=== PATIENT | female | born 1940 | race Caucasian/White ===

== ENCOUNTER 2021-03-27 05:51 | Observation (INO) | payer MEDICARE, SELFPAY ==
[2021-03-27] VITALS (21 sets, daily range): BP systolic 130–220; BP diastolic 44–90; PULSE 65–98; RESP 14–18; TEMP 36.7–37.1; O2SAT 95–100; BMI 23.8
--- NOTE | ~2021-03-27 | XR_ITS ---
EXAMINATION: XR chest 1V DATE: 03/27/2021 06:59 INDICATION: Syncope TECHNIQUE: frontal view of the chest was obtained. COMPARISON: Chest radiograph dated 07/14/2013 FINDINGS: The lungs remain clear with no focal airspace opacities, pulmonary edema, pleural effusion or pneumot horax. The cardiomediastinal silhouette is normal. Mild to moderate thoracic spondylosis. IMPRESSION: 1. No acute cardiopulmonary disease. Reviewed, dictated and finalized at location A. NING ROOM ATTENDANT
--- NOTE | ~2021-03-27 | CT_ITS ---
EXAMINATION: CT brain wo con DATE: 03/27/2021 06:48 INDICATION: Fall with syncope TECHNIQUE: Computed tomography (CT) of the head was performed without intravenous contrast. Sagittal and coronal reconstructions were performed. The mA was adjusted according to patient size. Iterative reconstruction technique was employed. The dose-length product was 605.33 mGy-cm. COMPARISON: head CT dated 07/14/2013 FINDINGS: No fracture. No acute intracranial hemorrhage, acute infarction or abnormal extra axial fluid collect ion. Small old lacunar infarct at the left thalamus. There is mild scattered white matter hypoattenua tion consistent with chronic small vessel ischemic disease. Increased prominence of the sulci and sub arachnoid spaces overlying the convexities most prominent of the bilateral frontal lobes and right pa rietal lobe consistent with moderate age-appropriate diffuse cerebral volume loss. Ventricles are nor mal and symmetric. No mass/mass effect. Changes of right intraocular lens replacement. The orbits, pa ranasal sinuses and mastoid air cells are normal. Intracranial calcified cerebral atherosclerosis is noted. IMPRESSION: 1. No acute intracranial process. 2. Small old lacunar infarct at the left thalamus. 3. Age-related changes including moderate bilateral frontal and right parietal prominent cerebral vol ume loss and mild scattered white matter hypoattenuation consistent with chronic small vessel ischemi c disease. Reviewed, dictated and finalized at location A. E EXERCISER IMPRESSION: 1. No acute intracranial process. 2. Small old lacunar infarct at the left thalamus. 3. Age-related changes including moderate bilateral frontal and right parietal prominent cerebral volume loss and mild scattered white matter hypoattenuation consistent with chronic small vessel ischemic disease.
--- NOTE | ~2021-03-27 | US_ITS ---
EXAMINATION: US carotid duplex BI DATE: 03/27/2021 15:20 INDICATION: Syncope TECHNIQUE: Grayscale, color Doppler, and pulsed Doppler images of the cervical carotid arteries were obtained. The degree of vessel stenosis is placed in one of the following categories: normal, <50%, 5 0-69%, >=70% but less than near-occlusion, near-occlusion, or total occlusion. Note that percent sten osis relative to normal distal artery lumen diameter is indirectly measured from velocity measurement s as described by Tuan, et al. Radiology 2003; 229:340-346. COMPARISON: July 15, 2013 carotid duplex examination FINDINGS: RIGHT: The right common carotid artery (CCA) peak systolic velocity (PSV) is 88.6 cm/s. The right internal c arotid artery (ICA) PSV is 99.0 cm/s. The right ICA end-diastolic velocity (EDV) is 23.3 cm/s. The ri t ICA/CCA PSV ratio is 1.1. Grayscale and color Doppler images yield an estimate of less than 50% d iameter reduction from plaque in the ICA. The external carotid artery (ECA) PSV is 72.9 cm/s. There i s antegrade flow in the right vertebral artery. LEFT: The left CCA PSV is 102.9 cm/s. The left ICA PSV is 133.9 cm/s. The left ICA EDV is 27.3 cm/s. The [facility] ICA/CCA PSV ratio is 1.3. Grayscale and color Doppler images yield an estimate of less than 50% di ameter reduction from plaque in the ICA. The ECA PSV is 84.6 cm/s. There is antegrade flow in the lef t vertebral artery. IMPRESSION: 1. Less than 50% stenosis in the right internal carotid artery. 2. Less than 50% stenosis in the left internal carotid artery. Reviewed, dictated and finalized at Location A. Reviewed, dictated and finalized at location A. NICS SYSTEMS ENGINEER
--- NOTE | 2021-03-27 05:58 | ECG_ITS ---
Measurements Intervals [place] Rate: 71 P: 11 OK: 131 QRS: 31 QRSD: 77 T: 26 QT: 350 QTc: 381 Interpretive Statements SINUS RHYTHM MINIMAL Q WAVES- INFERIOR LEADS BORDERLINE ECG Electronically Signed On 03-27-2021 7:08:50 [place] by Fareed Christian D.O.
[2021-03-27 06:19] LABS: Basophils Percent Auto 0.4 % (0.2-1.2); Eosinophils Absolute Auto 0.1 K/mm3 (0-0.3); Eosinophils Percent Auto 1.8 % (0-4.4); Hematocrit 43.9 % (37.0-47.0); Immature Granulocyte Absolute 0.02 K/mm3 (0.00-0.031); Immature Granulocyte Percent A 0.4 % (0-0.5); Lymphocytes Absolute Auto 2.02 K/mm3 (0.9-3.2); Lymphocytes Percent Auto 35.9 % (18.3-44.2); Mean Corpuscular HGB Conc 34.2 g/dl (32-36); Mean Corpuscular Hemoglobin 29.8 pg (26-34); Mean Corpuscular Volume 87.1 fl (80-100); Mean Platelet Volume 10.7 fl (7.4-10.4); Monocytes Absolute Auto 0.7 K/mm3 (0.1-0.6); Monocytes Percent Auto 12.1 % (2.6-8.5); Neutrophils Absolute Auto 2.8 K/mm3 (1.3-6.7); Neutrophils Percent Auto 49.4 % (45.5-73.1); Platelet Count Result 192 k/mm3 (150-375); Red Blood Count 5.04 M/mm3 (4.2-5.4); Red Cell Distribution Width 12.7 % (11.5-14.5); White Blood Count 5.6 K/mm3 (4.5-10.0)
[2021-03-27 06:27] LABS: INR 1.1; Prothrombin Time 13.8 Seconds (11.1-14.7)
[2021-03-27 06:28] LABS: Partial Thromboplastin Time 26.6 SECONDS (22.3-36.8)
[2021-03-27 06:57] LABS: Alanine Aminotransferase 21 U/L (4-35); Albumin Level 3.7 g/dL (3.5-5.1); Alkaline Phosphatase 71 U/L (38-126); Anion Gap 7 mmol/L (8-16); Aspartate Amino Transferase 36 U/L (14-36); Bilirubin,Total 0.2 mg/dL (0.2-1.3); Blood Urea Nitrogen 12 mg/dL (7-17); Calcium 8.6 mg/dL (8.4-10.2); Carbon Dioxide 23 mmol/L (22-30); Chloride 102 mmol/L (98-107); Estimated CRCL calculation 32 ml/min; Estimated Glomerular Filt Rate 53; Glucose 100 mg/dL (65-110); Potassium 4.2 mmol/L (3.4-5.0); Sodium 132 mmol/L (137-145)
[2021-03-27 07:08] LABS: Troponin I 0.016 ng/mL (0.000-0.034)
[2021-03-27 07:33] LABS: Add Urine Microscopic? YES; Appearance Urine Cloudy (Clear); Bacteria Urine Trace /hpf; Bilirubin Urine Negative (Negative); Blood Urine Negative (Negative); Color Urine Yellow (Yellow); Glucose Urine UA Negative (Negative); Ketones Urine Negative (Negative); Leukocyte Esterase Ur 3+ LEU/UL (Negative); Mucus Urine Rare /lpf; Nitrate Urine Negative (Negative); Protein Urine Negative (Negative); Specific Grav Ur 1.011 (1.001-1.035); Squamous Epithelial Cell Urine Moderate /hpf (Few); Urobilinogen Urine Negative mg/dL (<2.0); WBC Urine 16-20 /hpf
[2021-03-27 07:34] LABS: Transitional Epi Cells Urine Rare /hpf (None Seen)
--- NOTE | 2021-03-27 07:45 | ED.SYNCOPE ---
HPI - Syncope General Chief Complaint: Syncope Stated Complaint: syncope Time Seen by Provider: 03/27/21 06:18 Source: patient History of Present Illness HPI narrative: 80-year-old with a history of hypertension, hypothyroidism, dementia was brought in from home with complaints of syncopal episode. As per the EMS and as per the daughter who is presently at home give us a history that mom passed out couple times in the last week or so. Patient presently denies having any chest pain, shortness of breath, nausea or vomiting or diarrhea. She states that she was trying to make some coffee and passed out. She denied any head injury. As per the daughter couple of family members in the household have Covid. complaint: almost passed out Onset (ago): day(s) (1) Prodromal symptoms: none Witnessed: Yes - by Other (family) Context: during exertion Injuries sustained associated with event: none Current symptoms: none Treatments prior to arrival: none Related Data Allergies Allergy/AdvReac Type Severity Reaction Status Date / Time No Known Allergies Allergy Verified 12/06/20 10:27 Review of Systems Review of Systems: All systems reviewed & are unremarkable except as noted in HPI and below Constitutional: Constitutional: Reports no additional constitutional complaints Eyes: Eyes: Reports no additional eye complaints ENT: Reports system reviewed and no additional complaints, except as documented Cardiovascular: Cardiovascular: Reports no additional cardiovascular complaints Respiratory: Respiratory: Reports no additional respiratory complaints Gastrointestinal: Gastrointestinal: Reports no additional gastrointestinal complaints Genitourinary: Genitourinary: Reports no additional female genitourinary complaints PMFSH Past Medical History Medical History Essential (primary) hypertension Hx of thyroid cancer Hypothyroidism Mixed hyperlipidemia Surgical History Surgical History History of thyroid surgery Family History Family History Father Family history of lung cancer Mother Family history of coronary artery disease Sibling Family history of coronary artery disease Family history of malignant neoplasm of breast in first degree relative Social History Social History Smoking status: Never smoker Second hand tobacco smoke exposure: No Alcohol intake: never Substance use: never Substance use type: does not use Gender identity (if verbalized by the patient): Female Spiritual care concerns: No Agree to blood products: Yes Course Course Emergency Course: Did orthostatic blood pressure she was definitely orthostatic have given a liter and half fluids she still remains orthostatic. She has no respiratory complaints. Will admit her to the hospital for hydration and reevaluate her orthostatics. Discussed with hospitalist agreed to admit the patient and the family members have Covid we will do a Covid screen on her as well. Vital Signs Vital signs: Vital Signs Temperature 36.9 C 03/27/21 06:01 Pulse Rate 72 03/27/21 06:01 Respiratory Rate 17 03/27/21 06:01 Blood Pressure 172/59 H 03/27/21 06:01 Pulse Oximetry 98 03/27/21 06:01 Temperature 36.9 C 03/27/21 06:01 Pulse Rate 98 03/27/21 10:52 Respiratory Rate 18 03/27/21 10:00 Blood Pressure 149/76 H 03/27/21 10:52 Pulse Oximetry 99 03/27/21 10:00 MDM - Syncope Differential Diagnosis Differential diagnosis: Likely syncope due to orthostatic hypotension, vasovagal syncope and dehydration Lab Data Result diagrams: 03/27/21 06:09 03/27/21 06:41 Labs: Lab Results 03/27/21 03/27/21 03/27/21 Range/Units 06:09 06:09 06:09 WBC 5.6 (4.5-10.0) K/mm3 RBC 5.04 (4.2-5.
[2021-03-27] MEDS: SODIUM CHLORIDE 0.9% IV 1,000 ML 999 ML IV CONT (08:56)
[2021-03-27] MEDS: SODIUM CHLORIDE 0.9% IV 1,000 ML 125 ML IV CONT ×2 (13:11→22:08)
--- NOTE | 2021-03-27 13:54 | PM.IMHP ---
H&P: HPI History of Present Illness Date/Time: 03/27/21 13:54 this is a 80-year-old female patient who Has been staying with her daughter. She has a history of hypertension, hypothyroidism, paroxysmal atrial fibrillation, and dementia. She was brought in from home with complaints of syncopal episode. According to the daughter the patient had passed out a couple times this last week. ( After reviewing the chart it looks like in 2013 the patient was having orthostatic hypotension and was found to have paroxysmal atrial fibrillation and had been passing out at that time.) The patient denies any chest pain or dizziness. No nausea vomiting or diarrhea. No chest pain or shortness of breath. The patient was trying to make coffee this morning and passed out. She denied any head injury. Some of the family members were also noted to have COVID therefore the patient is being tested for COVID-19. The patient is a poor historian but she is able to recall some of the information. Her EKG was read as sinus rhythm normal Q-waves. Head CT was read as no acute intracranial process. Small old lacunar infarct at the left thalamus. Age-related changes including moderate bilateral frontal and right parietal prominent cerebral volume loss and mild scattered white matter hypoattenuation consistent with chronic small vessel ischemic disease. Chest x-ray was read as no acute cardiopulmonary disease. Sodium was slightly low at 132. Urine had 3+ leukocyte Estrace with 16-20 wbc's and moderate amount of squamous epithelial cells. This could possibly be a contaminant. The patient's last blood pressure 178/73. The patient was started on IV fluids. The patient is being admitted to observation status. On the date of service of 03/27/2021 Chief Complaint: Syncopal episode Review of Systems Review of Systems: All systems reviewed & are unremarkable except as noted in HPI and below Constitutional: Constitutional: Reports as per HPI and Reports no additional constitutional complaints Eyes: Eyes: Reports as per HPI and Reports no additional eye complaints ENT: Reports system reviewed and no additional complaints, except as documented and Reports Normal hearing present Cardiovascular: Cardiovascular: Reports no additional cardiovascular complaints Respiratory: Respiratory: Reports no additional respiratory complaints and Reports no additional respiratory complaints Gastrointestinal: Gastrointestinal: Reports as per HPI and Reports no additional gastrointestinal complaints Musculoskeletal: Musculoskeletal: Reports no additional musculoskeletal complaints Integumentary/Breasts: Skin/Breast: Reports system reviewed and no additional complaints, except as docu and Reports as per HPI Neurologic: Reports system reviewed and no additional complaints, except as documented, Reports as per HPI and Reports Normal hearing present Psychiatric: Psychiatric: Reports no additional psychiatric complaints and Reports as per HPI Endocrine: Endocrine: Reports no additional endocrine complaints Hematologic/Lymphatic: Hematologic/Lymphatic: Reports no additional hematologic/lymphatic complaints Allergic/Immunologic: Allergic/Immunologic: Reports no additional allergic/immunologic complaints [facility] Past Medical History Medical History (Updated 03/27/21 @ 14:18 by Pat De Paz NP) Essential (primary) hypertension History of back injury History of CVA (cerebrovascular accident) History of foot fracture History of kidney stones History of wrist fracture Hx of thyroid cancer Hypothyroidism Mixed hyperlipidemia Surgical History Surgical History (Updated 03/27/21 @ 14:04 by Pat De Paz NP) H/O cataract extraction History of appendectomy History of thyroid surgery Family History Family History Father Family history of lung cancer Mother Family history of coronary artery disease Sibling Family history of c
--- NOTE | 2021-03-27 15:30 | PC.NURSE ---
This patient, Sydney Arias, was admitted to 3 [facility] Surg Room 317-01. Patient/family oriented to hospital policies and general routines including ID bracelet, bed and alarms, visiting hours, pain management, procedures, bathroom and other care routines, personal items, smoking policy, room service/diet, and visiting hours.Report received from Terry. Information on how to activate the Rapid Response Team has been discussed. Patient/Family are encouraged to report perceived risks to care and to ask questions if they do not understand what they are told or what they should do.
[2021-03-27] MEDS: hydrALAZINE HCL 20 MG/ML VIAL 10 MG IV PUSH (15:58)
[2021-03-28] VITALS (15 sets, daily range): BP systolic 134–172; BP diastolic 50–92; PULSE 58–83; RESP 12–18; TEMP 36.7–38.1; O2SAT 91–99
[2021-03-28] MEDS: SODIUM CHLORIDE 0.9% IV 1,000 ML 125 ML IV CONT (05:31)
[2021-03-28] MEDS: LEVOTHYROXINE SODIUM 125 MCG TABLET PO (05:31)
[2021-03-28 06:56] LABS: Basophils Percent Auto 0.3 % (0.2-1.2); Hematocrit 36.5 % (37.0-47.0); Hemoglobin 12.6 g/dL (12.0-15.0); Lymphocytes Absolute Auto 1.34 K/mm3 (0.9-3.2); Lymphocytes Percent Auto 39.8 % (18.3-44.2); Mean Corpuscular HGB Conc 34.5 g/dl (32-36); Mean Corpuscular Hemoglobin 29.2 pg (26-34); Mean Corpuscular Volume 84.7 fl (80-100); Mean Platelet Volume 11.1 fl (7.4-10.4); Monocytes Absolute Auto 0.4 K/mm3 (0.1-0.6); Monocytes Percent Auto 12.2 % (2.6-8.5); Neutrophils Absolute Auto 1.6 K/mm3 (1.3-6.7); Neutrophils Percent Auto 47.7 % (45.5-73.1); Platelet Count Result 159 k/mm3 (150-375); Red Blood Count 4.31 M/mm3 (4.2-5.4); Red Cell Distribution Width 12.3 % (11.5-14.5); White Blood Count 3.4 K/mm3 (4.5-10.0)
[2021-03-28 07:25] LABS: Alanine Aminotransferase 15 U/L (4-35); Albumin Level 2.9 g/dL (3.5-5.1); Alkaline Phosphatase 52 U/L (38-126); Anion Gap 4 mmol/L (8-16); Aspartate Amino Transferase 29 U/L (14-36); Bilirubin,Total 0.2 mg/dL (0.2-1.3); Blood Urea Nitrogen 9 mg/dL (7-17); Calcium 7.7 mg/dL (8.4-10.2); Carbon Dioxide 20 mmol/L (22-30); Chloride 107 mmol/L (98-107); Estimated CRCL calculation 35 ml/min; Estimated Glomerular Filt Rate > 60; Glucose 90 mg/dL (65-110); Magnesium 1.8 mg/dL (1.6-2.3); Potassium 3.9 mmol/L (3.4-5.0); Sodium 131 mmol/L (137-145)
[2021-03-28 07:46] LABS: Thyroid Stimulating Hormone Reflex 0.264 uIU/mL (0.465-4.68)
[2021-03-28] MEDS: ACETAMINOPHEN 325 MG TABLET 650 MG PO (12:01)
[2021-03-28] MEDS: hydrALAZINE HCL 20 MG/ML VIAL 10 MG IV PUSH (12:02)
--- NOTE | 2021-03-28 12:20 | P.PNIM_ITS ---
Progress Note: A&P Assessment and Plan (1) Syncope: Qualifiers: Syncope type: unspecified Qualified Code(s): R55 - Syncope and collapse Code(s): R55 - Syncope and collapse Status: Acute Assessment and Plan: * History of syncope * History of afib * Currently in SR * Orthostatics negative * Carotid doppler less than 50% stenosed bilateral * CT of the brain which shows an old CVA. * Echo ordered and pending (2) Orthostatic hypotension: Code(s): I95.1 - Orthostatic hypotension Status: Acute Assessment and Plan: * Orthostatic blood pressures every shift * IV fluids DC'd as patient is eating * Orthostatics are negative (3) Essential (primary) hypertension: Code(s): I10 - Essential (primary) hypertension Status: Acute Assessment and Plan: * Current BP 172/92 * P.r.n. hydralazine. * Will start patient on 5mg PO lisinopril * Medications will need to be adjusted (4) Hypothyroidism: Code(s): E03.9 - Hypothyroidism, unspecified Status: Chronic Assessment and Plan: * TSH 0.264, free T4 pending * wait for T4 to change therapy * history of having a thyroid nodule that was removed * Change levothyroxine from 125 to 100mcg PO Daily * Will need follow up labs in roughly 6 weeks (5) Mixed hyperlipidemia: Code(s): E78.2 - Mixed hyperlipidemia Status: Chronic Assessment and Plan: * No home medication * Repeat Lipid panel as the last ones look high * Consider starting statin depending on lab work (6) Paroxysmal atrial fibrillation: Code(s): I48.0 - Paroxysmal atrial fibrillation Status: Acute Assessment and Plan: * No medications for afib * Tele monitor. * Holter monitor at [place] to determine if she is going back in atrial fibrillation causing her syncope (7) UTI (urinary tract infection): Code(s): N39.0 - Urinary tract infection, site not specified Status: Acute Assessment and Plan: * UA suspicious of a UTI * Started her on Rocephin * Urine and blood cultures are pending\ * Tailor antibiotics to culture results. (8) Suspected COVID-19 virus infection: Code(s): Z20.822 - Contact with and (suspected) exposure to COVID-19 Status: Acute Assessment and Plan: * Patient is on contact and droplet isolation. * Other family members have tested positive for COVID * PCR still pending * No signs or symptoms of covid * No oxygen requirements Time Spent With Patient Time with patient: Greater than 35 minutes Subjective Date/time seen: 03/28/21 1220 Interval history: Date/Time: 03/27/21 13:54 This is a 80-year-old female patient who Has been staying with her daughter. She has a history of hypertension, hypothyroidism, paroxysmal atrial fibrillation, and dementia. She was brought in from home with complaints of syncopal episode. According to the daughter the patient had passed out a couple times this last week. ( After reviewing the chart it looks like in 2013 the patient was having orthostatic hypotension and was found to have paroxysmal atrial fibrillation and had been passing out at that time.) The patient denies any chest pain or dizziness. No nausea vomiting or diarrhea. No chest pain or shortness of breath. The patient was trying to make coffee this morning and passed out. She denied any head injury. Some of the fami
--- NOTE | 2021-03-28 12:20 | PM.IMPN ---
Progress Note: A&P Assessment and Plan (1) Syncope: Qualifiers: Syncope type: unspecified Qualified Code(s): R55 - Syncope and collapse Code(s): R55 - Syncope and collapse Status: Acute Assessment and Plan: History of syncope History of afib Currently in SR Orthostatics negative Carotid doppler less than 50% stenosed bilateral CT of the brain which shows an old CVA. Echo ordered and pending (2) Orthostatic hypotension: Code(s): I95.1 - Orthostatic hypotension Status: Acute Assessment and Plan: Orthostatic blood pressures every shift IV fluids DC'd as patient is eating Orthostatics are negative (3) Essential (primary) hypertension: Code(s): I10 - Essential (primary) hypertension Status: Acute Assessment and Plan: Current BP 172/92 P.r.n. hydralazine. Will start patient on 5mg PO lisinopril Medications will need to be adjusted (4) Hypothyroidism: Code(s): E03.9 - Hypothyroidism, unspecified Status: Chronic Assessment and Plan: TSH 0.264, free T4 pending wait for T4 to change therapy history of having a thyroid nodule that was removed Change levothyroxine from 125 to 100mcg PO Daily Will need follow up labs in roughly 6 weeks (5) Mixed hyperlipidemia: Code(s): E78.2 - Mixed hyperlipidemia Status: Chronic Assessment and Plan: No home medication Repeat Lipid panel as the last ones look high Consider starting statin depending on lab work (6) Paroxysmal atrial fibrillation: Code(s): I48.0 - Paroxysmal atrial fibrillation Status: Acute Assessment and Plan: No medications for afib Tele monitor. Holter monitor at [place] to determine if she is going back in atrial fibrillation causing her syncope (7) UTI (urinary tract infection): Code(s): N39.0 - Urinary tract infection, site not specified Status: Acute Assessment and Plan: UA suspicious of a UTI Started her on Rocephin Urine and blood cultures are pending\ Tailor antibiotics to culture results. (8) Suspected COVID-19 virus infection: Code(s): Z20.822 - Contact with and (suspected) exposure to COVID-19 Status: Acute Assessment and Plan: Patient is on contact and droplet isolation. Other family members have tested positive for COVID PCR still pending No signs or symptoms of covid No oxygen requirements Time Spent With Patient Time with patient: Greater than 35 minutes Subjective Date/time seen: 03/28/21 1220 Interval history: Date/Time: 03/27/21 13:54 This is a 80-year-old female patient who Has been staying with her daughter. She has a history of hypertension, hypothyroidism, paroxysmal atrial fibrillation, and dementia. She was brought in from home with complaints of syncopal episode. According to the daughter the patient had passed out a couple times this last week. ( After reviewing the chart it looks like in 2013 the patient was having orthostatic hypotension and was found to have paroxysmal atrial fibrillation and had been passing out at that time.) The patient denies any chest pain or dizziness. No nausea vomiting or diarrhea. No chest pain or shortness of breath. The patient was trying to make coffee this morning and passed out. She denied any head injury. Some of the family members were also noted to have COVID therefore the patient is being tested for COVID-19. The patient is a poor historian but she is able to recall some of the information. Her EKG was read as sinus rhythm normal Q-waves. Head CT was read as no acute intracranial process. Small old lacunar infarct at the left thalamus. Age-related changes including moderate bilateral frontal and right parietal prominent cerebral volume loss and mild scattered white matter hypoattenuation consistent with chronic small vessel ischemic dis
[2021-03-28 12:29] LABS: Lactate Dehydrogenase 406 U/L (313-618)
--- NOTE | 2021-03-28 14:56 | PCNSR ---
On 03/28/21, the student, Jerri Patterson, provided care and completed [facility] documentation on this patient. I have reviewed the student's documentation and agree with the findings.
[2021-03-28 16:56] LABS: Free T4 Free Thyroxine Reflex 2.53 ng/dL (0.78-2.19)
[2021-03-28] MEDS: lisinopriL 5 MG TABLET PO (17:24)
[2021-03-28 19:00] LABS: SARS-CoV-2 RNA PCR Positive
[2021-03-29] VITALS (10 sets, daily range): BP systolic 116–181; BP diastolic 53–95; PULSE 59–81; RESP 12–18; TEMP 36.4–37.2; O2SAT 95–99
--- NOTE | 2021-03-29 | ECHO_ITS ---
Patient Info Name: Sydney Arias Age: 80 years : 1940 Gender: Female Ht: 63 in Wt: 121 lbs BSA: 1.56 m2 HR: 64 bpm BP: 156 / 65 mmHg Technical Quality: Good Exam Date: 03/29/2021 11:06 AM Exam Location: [facility] Patient Status: Inpatient Admit Date: 03/27/2021 Staff Ordering Physician: Pat De Paz NP Discharge Rn: [id number] Attending Provider: Dickson Jauregui MD Referring Physician: Zandra WRIGHT; Exam Type: CA echo doppler color flow Study Info Indications R55 - Syncope and collapse Complete two-dimensional, color flow and Doppler transthoracic echocardiogram is performed. Summary 1. Complete two-dimensional, color flow and Doppler transthoracic echocardiogram is performed. 2. Left ventricular chamber dimension is normal. 3. Left ventricular systolic function is normal, estimated at 65-70%. 4. Ventricular septum is sigmoid shaped. Mild resting LVOT obstruction with peak gradient at 16 mmHg. This suggests hypertrophic cardiomyopathy. 5. The left ventricular diastolic function is grade I diastolic dysfunction. 6. E/e' 12 is mildly elevated. 7. Left atrial chamber dimension is mildly enlarged. 8. Mild systolic anterior motion of mitral valve. 9. No pulmonary hypertension, estimated pulmonary arterial systolic pressure is 8 mmHg. Left Ventricle Ventricular septum is sigmoid shaped. Mild resting LVOT obstruction with peak gradient at 16 mmHg. This suggests hypertrophic cardiomyopathy. E/e' 12 is mildly elevated. Left ventricular chamber dimension is normal. Left ventricular systolic function is normal, estimated at 65-70%. The left ventricular diastolic function is grade I diastolic dysfunction. Right Ventricle Right ventricular chamber dimension is normal. Right ventricular systolic function is normal. Left Atria Left atrial chamber dimension is mildly enlarged. Right Atria Right atrial chamber dimension is normal. Aortic Valve The aortic valve is trileaflet. There is no aortic valve stenosis. There is no aortic valve regurgitation. Pulmonic Valve There is no pulmonic regurgitation. Mitral Valve Mild systolic anterior motion of mitral valve. There is no mitral valve stenosis. There is no mitral valve regurgitation. Tricuspid Valve There is no tricuspid valve regurgitation. No pulmonary hypertension, estimated pulmonary arterial systolic pressure is 8 mmHg. Pericardium/Pleural There is no pericardial effusion. Inferior Vena Cava Normal inferior vena cava with >50% collapse upon inspiration consistent with normal right atrial pressure, 5 mmHg. Aorta The aortic root size at the sinus of Valsalva is normal. Left Ventricular Outflow Tract Name Value Normal LVOT 2D LVOT Diameter 2.0 cm LVOT Doppler LVOT Peak Gradient 16 mmHg LVOT Mean Gradient 10 mmHg LVOT VTI 44 cm LVOT VTI/AV VTI Ratio 1.0 LVOT Stroke Volume 139 ml LVOT CO 29.7 l/min LVOT CI
[2021-03-29] MEDS: LEVOTHYROXINE SODIUM 100 MCG TABLET PO (05:55)
[2021-03-29 06:37] LABS: Basophils Percent Auto 0.5 % (0.2-1.2); Eosinophils Percent Auto 0.3 % (0-4.4); Hematocrit 39.9 % (37.0-47.0); Hemoglobin 13.6 g/dL (12.0-15.0); Immature Granulocyte Absolute 0.01 K/mm3 (0.00-0.031); Immature Granulocyte Percent A 0.3 % (0-0.5); Lymphocytes Absolute Auto 1.77 K/mm3 (0.9-3.2); Lymphocytes Percent Auto 47.1 % (18.3-44.2); Mean Corpuscular HGB Conc 34.1 g/dl (32-36); Mean Corpuscular Hemoglobin 29.6 pg (26-34); Mean Corpuscular Volume 86.7 fl (80-100); Mean Platelet Volume 11.3 fl (7.4-10.4); Monocytes Absolute Auto 0.4 K/mm3 (0.1-0.6); Monocytes Percent Auto 11.2 % (2.6-8.5); Neutrophils Absolute Auto 1.5 K/mm3 (1.3-6.7); Neutrophils Percent Auto 40.6 % (45.5-73.1); Platelet Count Result 157 k/mm3 (150-375); Red Cell Distribution Width 12.5 % (11.5-14.5); White Blood Count 3.8 K/mm3 (4.5-10.0)
[2021-03-29 06:57] LABS: Alanine Aminotransferase 16 U/L (4-35); Alkaline Phosphatase 57 U/L (38-126); Anion Gap 5 mmol/L (8-16); Aspartate Amino Transferase 31 U/L (14-36); Bilirubin,Total 0.1 mg/dL (0.2-1.3); Blood Urea Nitrogen 10 mg/dL (7-17); Carbon Dioxide 23 mmol/L (22-30); Chloride 105 mmol/L (98-107); Estimated CRCL calculation 35 ml/min; Estimated Glomerular Filt Rate > 60; Glucose 91 mg/dL (65-110); Magnesium 1.9 mg/dL (1.6-2.3); Sodium 133 mmol/L (137-145)
[2021-03-29] MEDS: lisinopriL 5 MG TABLET PO (10:36)
[2021-03-29] MEDS: ENOXAPARIN 40 MG/0.4 ML SYRINGE SUB-Q (10:36)
--- NOTE | 2021-03-29 13:17 | P.PNIM_ITS ---
Progress Note: A&P Assessment and Plan (1) Syncope: Qualifiers: Syncope type: unspecified Qualified Code(s): R55 - Syncope and collapse Code(s): R55 - Syncope and collapse Status: Acute Assessment and Plan: * History of syncope * History of afib * Currently in SR * Orthostatics negative * Carotid Doppler normal * CT of the brain which shows an old CVA. * Echo ordered (2) Orthostatic hypotension: Code(s): I95.1 - Orthostatic hypotension Status: Resolved Assessment and Plan: * Orthostatics are negative (3) Essential (primary) hypertension: Code(s): I10 - Essential (primary) hypertension Status: Acute Assessment and Plan: * Pt restarted on her Bp medications * Will start patient on 5mg PO lisinopril (4) Hypothyroidism: Code(s): E03.9 - Hypothyroidism, unspecified Status: Chronic Assessment and Plan: * history of having a thyroid nodule that was removed * Change levothyroxine from 125 to 100mcg PO Daily * needs rpt tsh, t4 in 6 weeks time (5) Mixed hyperlipidemia: Code(s): E78.2 - Mixed hyperlipidemia Status: Chronic Assessment and Plan: * No home medication (6) Paroxysmal atrial fibrillation: Code(s): I48.0 - Paroxysmal atrial fibrillation Status: Acute Assessment and Plan: * No medications for afib * Tele monitor. * Holter monitor at [place] (7) UTI (urinary tract infection): Code(s): N39.0 - Urinary tract infection, site not specified Status: Acute Assessment and Plan: * UA suspicious of a UTI * Started her on Rocephin * Urine and blood cultures are pending * Tailor antibiotics to culture results. Uc is negative awaiting BC. (8) Suspected COVID-19 virus infection: Code(s): Z20.822 - Contact with and (suspected) exposure to COVID-19 Status: Acute Assessment and Plan: * Patient is on contact and droplet isolation. * pt is positive for COVID pt informed * Can be discharged tomorrow as she has * No oxygen requirements Subjective Date/time seen: 03/29/21 13:17 Interval history: This is a 80-year-old female patient who Has been staying with her daughter. She has a history of hypertension, hypothyroidism, paroxysmal atrial fibrillation, and dementia. She was brought in from home with complaints of syncopal episode. According to the daughter the patient had passed out a couple times this last week. ( After reviewing the chart it looks like in 2013 the patient was having orthostatic hypotension and was found to have paroxysmal atrial fibrillation and had been passing out at that time.) The patient denies any chest pain or dizziness. No nausea vomiting or diarrhea. No chest pain or shortness of breath. The patient was trying to make coffee this morning and passed out. Her EKG was read as sinus rhythm normal Q-waves. Head CT was read as no acute intracranial process. Small old lacunar infarct at the left thalamus. Age-related changes including moderate bilateral frontal and right parietal prominent cerebral volume loss and mild scattered white matter hypoattenuation consistent with chronic small vessel ischemic disease. Chest x- ray was read as no acute cardiopulmonary disease. Sodium was slightly low at 132. Urine had 3+ leukocyte Estrace with 16-20 wbc's and moderate amount of squamous epithelial cells
--- NOTE | 2021-03-29 13:17 | PM.IMPN ---
Progress Note: A&P Assessment and Plan (1) Syncope: Qualifiers: Syncope type: unspecified Qualified Code(s): R55 - Syncope and collapse Code(s): R55 - Syncope and collapse Status: Acute Assessment and Plan: History of syncope History of afib Currently in SR Orthostatics negative Carotid Doppler normal CT of the brain which shows an old CVA. Echo ordered (2) Orthostatic hypotension: Code(s): I95.1 - Orthostatic hypotension Status: Resolved Assessment and Plan: Orthostatics are negative (3) Essential (primary) hypertension: Code(s): I10 - Essential (primary) hypertension Status: Acute Assessment and Plan: Pt restarted on her Bp medications Will start patient on 5mg PO lisinopril (4) Hypothyroidism: Code(s): E03.9 - Hypothyroidism, unspecified Status: Chronic Assessment and Plan: history of having a thyroid nodule that was removed Change levothyroxine from 125 to 100mcg PO Daily needs rpt tsh, t4 in 6 weeks time (5) Mixed hyperlipidemia: Code(s): E78.2 - Mixed hyperlipidemia Status: Chronic Assessment and Plan: No home medication (6) Paroxysmal atrial fibrillation: Code(s): I48.0 - Paroxysmal atrial fibrillation Status: Acute Assessment and Plan: No medications for afib Tele monitor. Holter monitor at [place] (7) UTI (urinary tract infection): Code(s): N39.0 - Urinary tract infection, site not specified Status: Acute Assessment and Plan: UA suspicious of a UTI Started her on Rocephin Urine and blood cultures are pending Tailor antibiotics to culture results. Uc is negative awaiting BC. (8) Suspected COVID-19 virus infection: Code(s): Z20.822 - Contact with and (suspected) exposure to COVID-19 Status: Acute Assessment and Plan: Patient is on contact and droplet isolation. pt is positive for COVID pt informed Can be discharged tomorrow as she has No oxygen requirements Subjective Date/time seen: 03/29/21 13:17 Interval history: This is a 80-year-old female patient who Has been staying with her daughter. She has a history of hypertension, hypothyroidism, paroxysmal atrial fibrillation, and dementia. She was brought in from home with complaints of syncopal episode. According to the daughter the patient had passed out a couple times this last week. ( After reviewing the chart it looks like in 2014 the patient was having orthostatic hypotension and was found to have paroxysmal atrial fibrillation and had been passing out at that time.) The patient denies any chest pain or dizziness. No nausea vomiting or diarrhea. No chest pain or shortness of breath. The patient was trying to make coffee this morning and passed out. Her EKG was read as sinus rhythm normal Q-waves. Head CT was read as no acute intracranial process. Small old lacunar infarct at the left thalamus. Age-related changes including moderate bilateral frontal and right parietal prominent cerebral volume loss and mild scattered white matter hypoattenuation consistent with chronic small vessel ischemic disease. Chest x-ray was read as no acute cardiopulmonary disease. Sodium was slightly low at 132. Urine had 3+ leukocyte Estrace with 16-20 wbc's and moderate amount of squamous epithelial cells. Pt was found to be positive for COVID infection. But is not needing oxygen can be discharged tomorrow. Review of Systems Review of Systems: All systems reviewed & are unremarkable except as noted in HPI and below Exam Const: General: cooperative; No in distress Orientation/consciousness: oriented to person HENMT: Head: normal to inspection Resp: Effort & Inspection: no respiratory distress Auscultation: no rhonchi and no wheezes Cardio: Rate: regular rate Rhythm: regular rhythm
[2021-03-30] VITALS: BP 138/88; PULSE 67; PULSE 78; RESP 16; TEMP 36.9; O2SAT 95
[2021-03-30 04:00] VITALS: BP 142/53; PULSE 63; PULSE 66; RESP 18; TEMP 36.6; O2SAT 95
[2021-03-30] MEDS: LEVOTHYROXINE SODIUM 100 MCG TABLET PO (05:29)
[2021-03-30 08:00] VITALS: BP 135/57; PULSE 118; PULSE 59; RESP 20; TEMP 36.3; O2SAT 97
--- NOTE | 2021-03-30 09:14 | P.DS_ITS ---
DS: Admitting Diagnosis Discharge Date 03/30/2021 Admitting Diagnosis Syncopal episode DS: Discharge Diagnosis Discharge Diagnosis (1) Syncope: Qualifiers: Syncope type: unspecified Qualified Code(s): R55 - Syncope and collapse Code(s): R55 - Syncope and collapse Status: Acute Assessment and Plan: * History of syncope * History of afib * Currently in SR * Orthostatics negative * Carotid Doppler normal * CT of the brain which shows an old CVA. (2) Orthostatic hypotension: Code(s): I95.1 - Orthostatic hypotension Status: Resolved Assessment and Plan: * Orthostatics are negative (3) Essential (primary) hypertension: Code(s): I10 - Essential (primary) hypertension Status: Acute Assessment and Plan: * Pt restarted on her Bp medications * Will start patient on 5mg PO lisinopril (4) Hypothyroidism: Code(s): E03.9 - Hypothyroidism, unspecified Status: Chronic Assessment and Plan: * History of having a thyroid nodule that was removed * Change levothyroxine from 125 to 100mcg PO Daily * needs rpt tsh, t4 in 6 weeks time (5) Mixed hyperlipidemia: Code(s): E78.2 - Mixed hyperlipidemia Status: Chronic Assessment and Plan: * No home medication (6) Paroxysmal atrial fibrillation: Code(s): I48.0 - Paroxysmal atrial fibrillation Status: Acute Assessment and Plan: * No medications for afib * Pt can see PCP and have holter monitor fitted later * if needed she will need to see cardiology after that (7) UTI (urinary tract infection): Code(s): N39.0 - Urinary tract infection, site not specified Status: Acute Assessment and Plan: * UA suspicious of a UTI * Started her on Rocephin * Uc is negative, BC prelim negative ok to dc without ABX. (8) Suspected COVID-19 virus infection: Code(s): Z20.822 - Contact with and (suspected) exposure to COVID-19 Status: Acute Assessment and Plan: * Patient is on contact and droplet isolation. * Pt is positive for COVID pt informed to self isolate until 04/06/2021 * Can be discharged tomorrow as she has * No oxygen requirements DS: Summary Hospital Course Hospital Course: This is a 80-year-old female patient who Has been staying with her daughter. She has a history of hypertension, hypothyroidism, paroxysmal atrial fibrillation, and dementia. She was brought in from home with complaints of syncopal episode. According to the daughter the patient had passed out a couple times this last week. ( After reviewing the chart it looks like in 2013 the patient was having orthostatic hypotension and was found to have paroxysmal atrial fibrillation and had been passing out at that time.) The patient denies any chest pain or dizziness. No nausea vomiting or diarrhea. No chest pain or shortness of breath. The patient was trying to make coffee this morning and passed out. Her EKG was read as sinus rhythm normal Q-waves. Head CT was read as no acute intracranial process. Small old lacunar infarct at the left thalamus. Age-related changes including moderate bilateral frontal and right parietal prominent cerebral volume loss and mild scattered white matter hypoattenuation consistent with chronic small vessel ischemic disease. Chest x- ray was read as no acute cardiopulmonary disease. Sodium was sligh
--- NOTE | 2021-03-30 09:14 | PM.DS ---
DS: Admitting Diagnosis Discharge Date 03/30/2021 Admitting Diagnosis Syncopal episode DS: Discharge Diagnosis Discharge Diagnosis (1) Syncope: Qualifiers: Syncope type: unspecified Qualified Code(s): R55 - Syncope and collapse Code(s): R55 - Syncope and collapse Status: Acute Assessment and Plan: History of syncope History of afib Currently in SR Orthostatics negative Carotid Doppler normal CT of the brain which shows an old CVA. (2) Orthostatic hypotension: Code(s): I95.1 - Orthostatic hypotension Status: Resolved Assessment and Plan: Orthostatics are negative (3) Essential (primary) hypertension: Code(s): I10 - Essential (primary) hypertension Status: Acute Assessment and Plan: Pt restarted on her Bp medications Will start patient on 5mg PO lisinopril (4) Hypothyroidism: Code(s): E03.9 - Hypothyroidism, unspecified Status: Chronic Assessment and Plan: History of having a thyroid nodule that was removed Change levothyroxine from 125 to 100mcg PO Daily needs rpt tsh, t4 in 6 weeks time (5) Mixed hyperlipidemia: Code(s): E78.2 - Mixed hyperlipidemia Status: Chronic Assessment and Plan: No home medication (6) Paroxysmal atrial fibrillation: Code(s): I48.0 - Paroxysmal atrial fibrillation Status: Acute Assessment and Plan: No medications for afib Pt can see PCP and have holter monitor fitted later if needed she will need to see cardiology after that (7) UTI (urinary tract infection): Code(s): N39.0 - Urinary tract infection, site not specified Status: Acute Assessment and Plan: UA suspicious of a UTI Started her on Rocephin Uc is negative, BC prelim negative ok to dc without ABX. (8) Suspected COVID-19 virus infection: Code(s): Z20.822 - Contact with and (suspected) exposure to COVID-19 Status: Acute Assessment and Plan: Patient is on contact and droplet isolation. Pt is positive for COVID pt informed to self isolate until 04/06/2021 Can be discharged tomorrow as she has No oxygen requirements DS: Summary Hospital Course Hospital Course: This is a 80-year-old female patient who Has been staying with her daughter. She has a history of hypertension, hypothyroidism, paroxysmal atrial fibrillation, and dementia. She was brought in from home with complaints of syncopal episode. According to the daughter the patient had passed out a couple times this last week. ( After reviewing the chart it looks like in 2013 the patient was having orthostatic hypotension and was found to have paroxysmal atrial fibrillation and had been passing out at that time.) The patient denies any chest pain or dizziness. No nausea vomiting or diarrhea. No chest pain or shortness of breath. The patient was trying to make coffee this morning and passed out. Her EKG was read as sinus rhythm normal Q-waves. Head CT was read as no acute intracranial process. Small old lacunar infarct at the left thalamus. Age-related changes including moderate bilateral frontal and right parietal prominent cerebral volume loss and mild scattered white matter hypoattenuation consistent with chronic small vessel ischemic disease. Chest x-ray was read as no acute cardiopulmonary disease. Sodium was slightly low at 132. Urine had 3+ leukocyte Estrace with 16-20 wbc's and moderate amount of squamous epithelial cells. Pt was found to be positive for COVID infection. But is not needing oxygen can be discharged today. Pt can follow PCP and have HOlter monitor fitted later after self quarantine period. Time Spent with Patient Time attestation: Total time spent providing and/or coordinating discharge services:40 minutes on day of discharge Exam Const: General: cooperative, comfortable, no acute d
[2021-03-30] MEDS: lisinopriL 5 MG TABLET PO (10:07)
[2021-03-30] MEDS: ENOXAPARIN 40 MG/0.4 ML SYRINGE SUB-Q (10:07)
== END 2021-03-30 10:35 | disposition home or self-care (01) ==
LOC: ANHED 11:28 → ANH3MEDSUR 03-28 08:01
PROVIDERS: Emergency Medicine; Nurse Practitioner; Admitting Provider Internal Medicine; Emergency Provider Family Medicine; PCP Family Medicine; Visit Provider Family Medicine
DX: U07.1 COVID-19 (principal); R55 Syncope and collapse; R82.90 Unspecified abnormal findings in urine; I10 Essential (primary) hypertension; E03.9 Hypothyroidism, unspecified; I48.91 Unspecified atrial fibrillation; F03.90 Unspecified dementia, unspecified severity, without behavioral disturbance, psychotic disturbance, mood disturbance, and anxiety; Z86.73 Personal history of transient ischemic attack (TIA), and cerebral infarction without residual deficits; Z87.891 Personal history of nicotine dependence
CPT/HCPCS: 36415; 70450; 71045; 80048; 80053; 80076; 81001; 83615; 83735; 84439; 84443; 84484; 85025; 85610; 85730; 87040; 87086; 87088; 93005; 93306; 93880; 96361; 96365; 96366; 96372; 96375; 96376; 97165; 99285; A9270; C9803; G0378; J0360; J0696; J1650; J7030; U0003; U0005

== ENCOUNTER 2021-04-01 06:23 | Inpatient (IN) | payer MEDICARE, SELFPAY ==
[2021-04-01] VITALS (11 sets, daily range): BP systolic 80–211; BP diastolic 49–98; PULSE 53–93; RESP 14–20; TEMP 36.2–36.8; O2SAT 94–98; BMI 23.8
--- NOTE | ~2021-04-01 | CT_ITS ---
EXAMINATION: CTA chest PE protocol DATE: 04/01/2021 09:25 TINWARE LITHOGRAPH PRESS OPERATOR INDICATION: Pulmonary embolism. Syncope. Covid. TECHNIQUE: Computed tomographic angiography (CTA) of the chest was performed with 100 mL Omnipaque-35 0 intravenous contrast. The dose-length product was 174.84 mGy-cm. Maximum intensity projection 3D-re constructions of the aorta and other arteries were constructed by the technologist on a separate work station. Automated exposure control and iterative reconstruction technique were employed. COMPARISON: None. FINDINGS: Study is technically adequate without evidence for pulmonary embolism. Heart size is normal . No significant pleural or pericardial effusion. There is moderate atherosclerosis of the aorta with out aneurysm or dissection. There is coronary artery atherosclerosis. The upper abdomen is unremarkab le. There are patchy groundglass opacities bilaterally, consistent with pneumonia. No endobronchial l esions. There are chronic wedge compression deformities of T4 and T6 with accentuated thoracic kyphos is. IMPRESSION: 1. Patchy bilateral groundglass opacities, consistent with pneumonia. Reviewed, dictated and finalized at location A. ARE LITHOGRAPH PRESS OPERATOR
--- NOTE | ~2021-04-01 | XR_ITS ---
EXAMINATION: XR chest 1V portable DATE: 04/03/2021 08:48 INDICATION: COVID-19 pneumonia. Fever. TECHNIQUE: A single frontal view of the chest was obtained. COMPARISON: Chest single view 03/27/2021, chest CT 04/01/2021 FINDINGS: There are patchy airspace opacities in all lung zones bilaterally, worst in right upper lob e. No pleural effusion or pneumothorax. The heart size is normal. IMPRESSION: 1. Multifocal lung disease, worsened from 03/27/2021, consistent with COVID-19 pneumonia. Reviewed, dictated and finalized at location A. SERVICES MANAGER IMPRESSION: 1. Multifocal lung disease, worsened from 03/27/2021, consistent with COVID-19 p neumonia.
--- NOTE | 2021-04-01 06:25 | ECG_ITS ---
Measurements Intervals [place] Rate: 64 P: 34 AK: 138 QRS: 30 QRSD: 82 T: 17 QT: 381 QTc: 396 Interpretive Statements SINUS RHYTHM NORMAL ECG Electronically Signed On 04-01-2021 6:40:56 [employer] PLAYER by Fareed Christian D.O.
[2021-04-01 07:00] LABS: Anion Gap 10 mmol/L (8-16); Basophils Percent Auto 0.7 % (0.2-1.2); Blood Urea Nitrogen 13 mg/dL (7-17); Calcium 8.5 mg/dL (8.4-10.2); Carbon Dioxide 24 mmol/L (22-30); Chloride 99 mmol/L (98-107); Estimated Glomerular Filt Rate 48; Glucose 99 mg/dL (65-110); Immature Granulocyte Absolute 0.01 K/mm3 (0.00-0.031); Immature Granulocyte Percent A 0.3 % (0-0.5); Lymphocytes Absolute Auto 1.05 K/mm3 (0.9-3.2); Lymphocytes Percent Auto 34.2 % (18.3-44.2); Mean Corpuscular HGB Conc 34.1 g/dl (32-36); Mean Corpuscular Hemoglobin 29.6 pg (26-34); Mean Platelet Volume 11.5 fl (7.4-10.4); Monocytes Absolute Auto 0.3 K/mm3 (0.1-0.6); Monocytes Percent Auto 10.4 % (2.6-8.5); Neutrophils Absolute Auto 1.7 K/mm3 (1.3-6.7); Neutrophils Percent Auto 54.4 % (45.5-73.1); Platelet Count Result 133 k/mm3 (150-375); Potassium 4.4 mmol/L (3.4-5.0); Red Blood Count 5.06 M/mm3 (4.2-5.4); Red Cell Distribution Width 12.2 % (11.5-14.5); Sodium 133 mmol/L (137-145); White Blood Count 3.1 K/mm3 (4.5-10.0)
[2021-04-01 07:43] LABS: Alanine Aminotransferase 28 U/L (4-35); Albumin Level 3.7 g/dL (3.5-5.1); Alkaline Phosphatase 63 U/L (38-126); Aspartate Amino Transferase 56 U/L (14-36); Bilirubin,Total 0.3 mg/dL (0.2-1.3)
[2021-04-01 07:43] LABS: Alveolar/Arterial O2 Gradient 41.7 mmHg; Base Excess ABG -1.8 mEq/l (+/-2.0); Fractional Inspired Oxygen 21 %; HCO3 ABG 21.6 mEq/l (22.0-26.0); Oxygen Content ABG 18.9 %vol (16.0-22.0); Oxygen Saturation ABG 94.4 % (95.0-100.0); Oxyhemoglobin 92.7 % THb (90.0-100.0); PCO2 ABG 33.1 mmHg (35.0-45.0); PO2 ABG 68.4 mmHg (80.0-100.0); PO2 FiO2 Ratio Arterial Blood 3.26 %; Total Hemoglobin 14.5 g/dL (12.0-18.0); pH ABG 7.432 (7.350-7.450)
[2021-04-01 07:44] LABS: Device ROOM AIR; Modified Allen's Test Pass; Site Drawn RIGHT RADIAL
--- NOTE | 2021-04-01 07:49 | PC.NURSE ---
Carrie in lab aware of D Dimer add on.
[2021-04-01 07:55] LABS: Troponin I 0.016 ng/mL (0.000-0.034)
[2021-04-01 08:03] LABS: D Dimer 1.58 ug/mL (<0.48)
--- NOTE | 2021-04-01 08:18 | ED.SYNCOPE ---
HPI - Syncope General Chief Complaint: Syncope Stated Complaint: SYNCOPE Time Seen by Provider: 04/01/21 07:22 Source: patient, EMS and RN notes reviewed Mode of arrival: EMS Limitations: no limitations History of Present Illness HPI narrative: Patient brought to the hospital because of recurrent syncopal episodes at home, patient lives with her daughter, recent diagnosis of Covid infection on March 27, patient was sick few days prior to the diagnosis. Patient was hospitalized in our hospital for similar complaint and was discharged with a diagnosis of syncope secondary to orthostatic hypotension. Patient denying any pain or shortness of breath. Related Data Home Medications Medication Instructions Recorded Confirmed levothyroxine 100 mcg tablet 100 mcg PO DAILY 03/30/21 Allergies Allergy/AdvReac Type Severity Reaction Status Date / Time No Known Allergies Allergy Verified 03/27/21 16:45 Review of Systems Review of Systems: CONSTITUTIONAL: Denies fever, chills, or sweats. EYES: Denies visual changes, redness, or discharge. ENT: Denies rhinorrhea, congestion, sore throat, or otalgia. CARDIOVASCULAR: Denies chest pain, palpitations, or edema. RESPIRATORY: Denies cough or dyspnea. GASTROINTESTINAL: Denies abdominal pain, nausea, vomiting, or diarrhea. GENITOURINARY: Denies dysuria or hematuria. SKIN: Denies rash or itching. MUSCULOSKELETAL: Denies back pain, joint pain, or myalgia. NEUROLOGIC: Denies headache, numbness, or weakness. PSYCHIATRIC: Denies anxiety or depression. [facility] Past Medical History Medical History Essential (primary) hypertension History of back injury History of CVA (cerebrovascular accident) History of foot fracture History of kidney stones History of wrist fracture Hx of thyroid cancer Hypothyroidism Mixed hyperlipidemia Surgical History Surgical History H/O cataract extraction History of appendectomy History of thyroid surgery Family History Family History Father Family history of lung cancer Mother Family history of coronary artery disease Sibling Family history of coronary artery disease Family history of malignant neoplasm of breast in first degree relative Social History Social History Social History: the patient is and only had 1 child. The patient is a former smoker and quit smoking in 1989. She is currently staying with her daughter. 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 Her daughter is the durable power consumer attorney for healthcare. She denies any alcohol marijuana or illicit drugs. Code status full code Smoking packs per day: 1 Smoking cigarettes per day: 20.0 Years smoked: 26 Smoking pack-years: 26.00 Smoking status: Former smoker Tobacco type: cigarettes Second hand tobacco smoke exposure: No Alcohol intake: never Substance use: never Substance use type: does not use Gender identity (if verbalized by the patient): Female Spiritual care concerns: No Agree to blood products: Yes Exam Narrative: General appearance: Well-developed, well-nourished Skin: Normal color Head: Normocephalic, nontraumatic Eyes: Clear conjunctiva ENT: Oropharynx normal, ears normal, nose normal Neck: Supple, nontender Chest and respiratory: Airway patent, no respiratory distress, no accessory muscle use Heart: Regular rate/rhythm Abdomen: Soft, nontender, no organomegaly, quiet bowel sounds Vascular: Normal peripheral pulses, normal capillary refill. Musculoskeletal: Normal range of motion, nontender back Neurologic: Alert and oriented ?3, XEROX MACHINE ASSEMBLER is normal as tested, no gross motor deficit
[2021-04-01] MEDS: SODIUM CHLORIDE 0.9% IV 1,000 ML 999 ML IV CONT (08:46)
[2021-04-01] MEDS: SODIUM CHLORIDE 0.9% IV 1,000 ML 125 ML IV CONT ×2 (10:41→18:03)
--- NOTE | 2021-04-01 11:10 | ADMGEN ---
This patient, Sydney Arias, was admitted to [facility] Surg Room 305-01 at 1045. Report per KONG Butler. Patient/family oriented to hospital policies and general routines including ID bracelet, bed and alarms, visiting hours, pain management, procedures, bathroom and other care routines, personal items, smoking policy, room service/diet, and visiting hours. Information on how to activate the Rapid Response Team has been discussed. Patient/Family are encouraged to report perceived risks to care and to ask questions if they do not understand what they are told or what they should do.
[2021-04-01] MEDS: lisinopriL 20 MG TABLET 40 MG PO (21:03)
[2021-04-02] VITALS (9 sets, daily range): BP systolic 157–195; BP diastolic 45–95; PULSE 58–93; RESP 12–20; TEMP 36.4–38.3; O2SAT 95–100
[2021-04-02] MEDS: SODIUM CHLORIDE 0.9% IV 1,000 ML 125 ML IV CONT ×2 (02:36→08:23)
[2021-04-02 06:25] LABS: Anion Gap 7 mmol/L (8-16); Blood Urea Nitrogen 11 mg/dL (7-17); Calcium 6.9 mg/dL (8.4-10.2); Carbon Dioxide 19 mmol/L (22-30); Chloride 107 mmol/L (98-107); Estimated CRCL calculation 40 ml/min; Estimated Glomerular Filt Rate > 60; Glucose 77 mg/dL (65-110); Potassium 4.1 mmol/L (3.4-5.0); Sodium 133 mmol/L (137-145)
[2021-04-02] MEDS: LEVOTHYROXINE SODIUM 125 MCG TABLET PO (07:21)
[2021-04-02] MEDS: lisinopriL 5 MG TABLET PO (08:23)
--- NOTE | 2021-04-02 08:34 | PM.IMHP ---
H&P: HPI History of Present Illness Date/Time: 04/02/21 08:34 Chief Complaint: Syncope Narrative: 80-year-old female was in her usual state of health until last week when she experienced a syncopal episode. She was hospitalized on March 27 and found to have COVID-19 pneumonia. She is now feeling better. Never required oxygen. Was on vaccinated. States she intended to get vaccinated but never got around to it and isn't fond of shots. While hospitalized she was found to be orthostatic. Her lisinopril was decreased from 40-5 mg daily. She was also found to be hyperthyroid. Her levothyroxine was decreased from 125-100 mcg daily. Her telemetry was unremarkable. Carotid ultrasound was negative. CT of the brain showed an old lacunar infarct of which the patient was not aware. Other than history of thyroid nodule excision, hypertension and recent COVID-19 pneumonia she has been well. Although her chart mentions a history of paroxysmal atrial fibrillation the patient is not aware that she has ever had an abnormal or irregular heart rhythm. On April 01 in the morning while making coffee she fainted. She recalls no warning symptoms. No chest pain palpitations nausea sweats weakness or shakes. She awakened immediately without postictal confusion. She lives with her daughter. Since admission the patient has had no further episodes. She denied chest pain, dyspnea on exertion, edema, palpitations, abdominal pain, nausea vomiting or diarrhea, dysuria or hematuria, hematochezia, dysphagia, weight loss, weakness or numbness, headaches, visual disturbance, or vertigo. Review of Systems Review of Systems: All systems reviewed & are unremarkable except as noted in HPI and below [facility] Past Medical History Medical History Essential (primary) hypertension History of back injury History of CVA (cerebrovascular accident) History of foot fracture History of kidney stones History of wrist fracture Hx of thyroid cancer Hypothyroidism Mixed hyperlipidemia Surgical History Surgical History H/O cataract extraction History of appendectomy History of thyroid surgery Family History Family History Father Family history of lung cancer Mother Family history of coronary artery disease Sibling Family history of coronary artery disease Family history of malignant neoplasm of breast in first degree relative Social History Social History Social History: the patient is and only had 1 child. The patient is a former smoker and quit smoking in 1989. She is currently staying with her daughter. 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 She denies any alcohol marijuana or illicit drugs. Code status full code Smoking packs per day: 1 Smoking cigarettes per day: 20.0 Years smoked: 26 Smoking pack-years: 26.00 Smoking status: Former smoker Second hand tobacco smoke exposure: No Alcohol intake: never Substance use: never Substance use type: does not use Gender identity (if verbalized by the patient): Female Spiritual care concerns: No Agree to blood products: Yes Meds Home Medications and Allergies Home Medications Medication Instructions Recorded Confirmed Type lisinopril 5 mg PO QAM #30 tablet 03/30/21 04/01/21 Rx levothyroxine [Euthyrox] 125 mcg PO DAILY 04/02/21 04/02/21 History Allergies Allergy/AdvReac Type Severity Reaction Status Date / Time No Known Allergies Allergy Verified 03/27/21 16:45 Vital Signs Vital Signs - 24 hr 04/01/21 09:19 04/01/21 11:30 04/01/21 12:00 Temperature 98.2 F Pulse Rate 59 L 59 L 53 L Respiratory Rate 14 16 Blood Pressure 152/52 H 144/49 H Pulse
[2021-04-02 09:56] LABS: Anion Gap 6 mmol/L (8-16); Blood Urea Nitrogen 9 mg/dL (7-17); Calcium 7.4 mg/dL (8.4-10.2); Carbon Dioxide 18 mmol/L (22-30); Chloride 108 mmol/L (98-107); Estimated CRCL calculation 40 ml/min; Estimated Glomerular Filt Rate > 60; Glucose 91 mg/dL (65-110); Potassium 4.2 mmol/L (3.4-5.0); Sodium 132 mmol/L (137-145)
[2021-04-02] MEDS: METOPROLOL SUCCINATE EXT REL 12.5 MG TABCR PO (11:02)
[2021-04-02] MEDS: ACETAMINOPHEN 325 MG TABLET 650 MG PO (12:41)
--- NOTE | 2021-04-02 15:17 | PM.CNCAR ---
Assessment and Plan Additional Plan 80-year-old lady with: Episode of abrupt syncope occurring at home yesterday prompting hospital admission. The etiology of this is not clear at this time. There were no arrhythmias identified on telemetry that would raise concern. Would agree with Dr. Castillo that her echocardiographic findings would call into the question underlying hypertrophic obstructive cardiomyopathy this may also be simply sigmoid hypertrophy of the septum of the elderly. In any event she does have a mild LVOT pressure gradient and I believe with this situation she would do better with beta-sierra than any sort of vaso dilator. Agree with transitioning to metoprolol starting at a modest a day dosage and up titrating as tolerated. I also told the patient that avoiding dehydration is extremely important in this situation. We will follow her with you while she is in the hospital. Thank you for this interesting consultation Jose Youngblood MD [facility] History of Present Illness History of Present Illness Consult date/time: 04/02/21 15:17 Reason For Visit: Snycope/orthostatic hypotension/Covid infection Narrative: This is an 80-year-old lady am seen to request the hospitalist today because she had an episode of syncope that led to her current hospitalization and this may relate to echocardiographic findings that were noted during her most recent admission here. She says that she has never had a syncopal episode before in this fashion. She was at home in her usual state of which she thinks is reasonably good health when she abruptly had loss of consciousness at home and awakened on the floor. She did not have any symptoms leading up to this such as palpitations lightheadedness dimming of her vision or any other concerns. She stated that when she woke up she felt relatively well and she did not really consider this to be an urgent matter. She lives with her daughter who came home later in the day and she related they event to her and she called an ambulance and had her brought to the hospital. In the emergency room she was evaluated and admitted to the telemetry floor. She is asymptomatic and otherwise feels well. She was recently at [facility] and discharged recently because of coronavirus. She had a relatively benign hospitalization and did not have any significant cardiac problems that I am reading about. She had an echocardiogram during that visit which demonstrated left ventricular hypertrophy with vigorous systolic function and asymmetric septal hypertrophy with a sigmoid appearing septum and evidence of a mild LVOT pressure gradient at rest of 16 mmHg. She had been taking lisinopril for hypertension. She has had some problems in the left recent months/year with orthostasis. Her lisinopril dosage has been down tract titrated from 40 mg holding down to 5 mg today given these echocardiographic findings and her recent it recurred admission now with syncope the lisinopril has been stopped and she has been placed on a modest dose of metoprolol. The patient is a comfortable at this time she is reading her Bible when I entered the room to see her she offers no complaints by her own request she is a do not resuscitate patient. She wants nothing aggressive in the way of major procedures or operations. We do have previous records of the patient having been seen by my partner Dr. Vitale 5-6 years ago because of an episode of atrial fibrillation that was suspiciously attributed to her thyroid disease. She had not had a recurrences of this. When I spoke to the patient about this she has no recollection of this consultation in the past. Review of Systems Constitutional: Constitutional: Reports no additional constitutional complaints Eyes: Eyes: Reports no additional eye complaints ENT: Reports system reviewed and no additional complaints, except as documented Cardiovascular: Cardiovascular: Reports as per HPI Respiratory: Respiratory:
[2021-04-02 22:14] LABS: Add Urine Microscopic? YES; Appearance Urine Clear (Clear); Bilirubin Urine Negative (Negative); Blood Urine Negative (Negative); Color Urine Straw (Yellow); Glucose Urine UA Negative (Negative); Ketones Urine Trace mg/dL (Negative); Leukocyte Esterase Ur Negative LEU/UL (Negative); Mucus Urine Rare /lpf; Nitrate Urine Negative (Negative); Protein Urine Negative (Negative); RBC Urine 0-2 /hpf (0-2); Specific Grav Ur 1.009 (1.001-1.035); Squamous Epithelial Cell Urine Rare /hpf (Few); Urobilinogen Urine Negative mg/dL (<2.0); WBC Urine 0-3 /hpf
[2021-04-03] VITALS (14 sets, daily range): BP systolic 124–209; BP diastolic 49–87; PULSE 51–74; RESP 16–26; TEMP 36.2–38.2; O2SAT 93–98
[2021-04-03] MEDS: hydrALAZINE HCL 20 MG/ML VIAL 10 MG IV PUSH (04:55)
[2021-04-03] MEDS: LEVOTHYROXINE SODIUM 88 MCG TABLET PO (05:39)
[2021-04-03 06:35] LABS: Alanine Aminotransferase 18 U/L (4-35); Albumin Level 2.8 g/dL (3.5-5.1); Alkaline Phosphatase 49 U/L (38-126); Anion Gap 9 mmol/L (8-16); Aspartate Amino Transferase 35 U/L (14-36); Bilirubin,Total 0.2 mg/dL (0.2-1.3); Blood Urea Nitrogen 8 mg/dL (7-17); Calcium 7.8 mg/dL (8.4-10.2); Carbon Dioxide 18 mmol/L (22-30); Chloride 106 mmol/L (98-107); Estimated CRCL calculation 36 ml/min; Estimated Glomerular Filt Rate > 60; Glucose 82 mg/dL (65-110); Magnesium 1.9 mg/dL (1.6-2.3); Phosphorus 3.1 mg/dL (2.5-4.5); Potassium 3.8 mmol/L (3.4-5.0); Sodium 133 mmol/L (137-145)
[2021-04-03 06:43] LABS: Parathyroid Intact 45.6 pg/mL (7.5-53.5)
[2021-04-03] MEDS: METOPROLOL SUCCINATE EXT REL 25 MG TABCR PO (08:43)
[2021-04-03] MEDS: ERGOCALCIFEROL 50,000 UNIT CAPSULE 50000 UNITS PO (08:43)
[2021-04-03] MEDS: ACETAMINOPHEN 325 MG TABLET 650 MG PO ×2 (08:45→13:01)
--- NOTE | 2021-04-03 14:53 | P.PNIM_ITS ---
Progress Note: A&P Assessment and Plan (1) Syncope: Qualifiers: Syncope type: unspecified Qualified Code(s): R55 - Syncope and collapse Code(s): R55 - Syncope and collapse Status: Acute Assessment and Plan: * Echo is c/w HOCM (LVOT obstruction with 16 mmHg rest gradient and mitral ELIEZER, as well as sigmoid LV) * She wishes no aggressive interventions * However, as this increases her risk for exertion related hypotension and ventricular arrhythmia, beta-sierra therapy may be salubrious; but will need to start cautiously as she did have one episode of bradycardia around 14:10 on 04/01 * Endocrine, neurological, psychiatric, and metabolic etiologies are clinically unlikely * 04/03 Increase metoprolol succinate to 25mg daily (2) COVID-19 virus infection: Code(s): U07.1 - COVID-19 Status: Acute Assessment and Plan: * dx 03/27 after a few days of illness * never required oxygen * Continues with low-grade fevers with negative U/A 04/02, Blood C/s prelim negative from 04/02, and CXR c/w COVID-19 * Procalcitonin pending * 04/03 CXR worsened but sats 95% on R/A * Continue to monitor for criteria to initiate dexamethasone, remdesivir, baricitinib (3) Orthostatic hypotension: Code(s): I95.1 - Orthostatic hypotension Status: Acute Assessment and Plan: * Received IVF overnight 04/01-04/02 * D/c lisinopril 04/02 * Metoprolol succinate initiated 04/02 * Monitor orthostatic BP (4) Hx of thyroid cancer: Code(s): Z85.850 - Personal history of malignant neoplasm of thyroid Status: Acute Assessment and Plan: * Now has iatrogenic hyperthyroidism * Given her predisposition to cardiac arrhythmia, suppressive doses of LT4 are likely more detrimental than beneficial at this juncture * Weight based dose of 88mcg daily (1.6mcg/kg) 04/02 * F/u TSH and FT4 in 5-6 weeks (5) Essential (primary) hypertension: Code(s): I10 - Essential (primary) hypertension Status: Acute Assessment and Plan: * Given her predisposition to orthostatic hypotension, will set goal BP 150/90 range and HR 60s * Monitor orthostatic BP (6) Heart murmur: Code(s): R01.1 - Cardiac murmur, unspecified Status: Acute Assessment and Plan: * Echo is c/w IHSS (LVOT obstruction with 16 mmHg rest gradient and mitral ELIEZER, as well as sigmoid LV) * She wishes no aggressive interventions * Discussed her wishes for DNR status (7) Hypocalcemia: Code(s): E83.51 - Hypocalcemia Status: Acute Assessment and Plan: * Was proportional to albumin * Decrease 04/02 to 6.9 is likely dilutional; 04/03 7.8 w/ albumin 2.8 * F/u D, phos, PTH, ionized Ca, Mag noted and c/w Vit D deficiency, ergocalciferol initiated 04/03 Subjective Date/time seen: 04/03/21 14:53 Interval history: Diagnosed with COVID-19 pneumonia March 27. No oxygen requirement and no therapy other than watchful waiting. Syncopal episode April 01 while making coffee. 04/03 visit. Febrile to 101 overnight. Denied fevers or chills. Other than being tired she has no complaints. Denied chest pain or shortness of breath or nausea or vomiting. Denied loss of taste or smell. Denied GI or complaints. Denied abnormal bleeding. Review of Systems Review of Systems: All systems reviewed & are unremarkable except as noted in HPI and below Exam Narrative: HEENT: EOMI, PERRL, sclerae nonicteric, pharyngeal mucosa pink and intact NECK: No JVD, adeno
--- NOTE | 2021-04-03 14:53 | PM.IMPN ---
Progress Note: A&P Assessment and Plan (1) Syncope: Qualifiers: Syncope type: unspecified Qualified Code(s): R55 - Syncope and collapse Code(s): R55 - Syncope and collapse Status: Acute Assessment and Plan: Echo is c/w HOCM (LVOT obstruction with 16 mmHg rest gradient and mitral ELIEZER, as well as sigmoid LV) She wishes no aggressive interventions However, as this increases her risk for exertion related hypotension and ventricular arrhythmia, beta-sierra therapy may be salubrious; but will need to start cautiously as she did have one episode of bradycardia around 14:10 on 04/01 Endocrine, neurological, psychiatric, and metabolic etiologies are clinically unlikely 04/03 Increase metoprolol succinate to 25mg daily (2) COVID-19 virus infection: Code(s): U07.1 - COVID-19 Status: Acute Assessment and Plan: dx 03/27 after a few days of illness never required oxygen Continues with low-grade fevers with negative U/A 04/02, Blood C/s prelim negative from 04/02, and CXR c/w COVID-19 Procalcitonin pending 04/03 CXR worsened but sats 95% on R/A Continue to monitor for criteria to initiate dexamethasone, remdesivir, baricitinib (3) Orthostatic hypotension: Code(s): I95.1 - Orthostatic hypotension Status: Acute Assessment and Plan: Received IVF overnight 04/01-04/02 D/c lisinopril 04/02 Metoprolol succinate initiated 04/02 Monitor orthostatic BP (4) Hx of thyroid cancer: Code(s): Z85.850 - Personal history of malignant neoplasm of thyroid Status: Acute Assessment and Plan: Now has iatrogenic hyperthyroidism Given her predisposition to cardiac arrhythmia, suppressive doses of LT4 are likely more detrimental than beneficial at this juncture Weight based dose of 88mcg daily (1.6mcg/kg) 04/02 F/u TSH and FT4 in 5-6 weeks (5) Essential (primary) hypertension: Code(s): I10 - Essential (primary) hypertension Status: Acute Assessment and Plan: Given her predisposition to orthostatic hypotension, will set goal BP 150/90 range and HR 60s Monitor orthostatic BP (6) Heart murmur: Code(s): R01.1 - Cardiac murmur, unspecified Status: Acute Assessment and Plan: Echo is c/w IHSS (LVOT obstruction with 16 mmHg rest gradient and mitral ELIEZER, as well as sigmoid LV) She wishes no aggressive interventions Discussed her wishes for DNR status (7) Hypocalcemia: Code(s): E83.51 - Hypocalcemia Status: Acute Assessment and Plan: Was proportional to albumin Decrease 04/02 to 6.9 is likely dilutional; 04/03 7.8 w/ albumin 2.8 F/u D, phos, PTH, ionized Ca, Mag noted and c/w Vit D deficiency, ergocalciferol initiated 04/03 Subjective Date/time seen: 04/03/21 14:53 Interval history: Diagnosed with COVID-19 pneumonia March 27. No oxygen requirement and no therapy other than watchful waiting. Syncopal episode April 01 while making coffee. 04/03 visit. Febrile to 101 overnight. Denied fevers or chills. Other than being tired she has no complaints. Denied chest pain or shortness of breath or nausea or vomiting. Denied loss of taste or smell. Denied GI or complaints. Denied abnormal bleeding. Review of Systems Review of Systems: All systems reviewed & are unremarkable except as noted in HPI and below Exam Narrative: HEENT: EOMI, PERRL, sclerae nonicteric, pharyngeal mucosa pink and intact NECK: No JVD, adenopathy, or thyromegaly CHEST: Clear to auscultation. Normal effort. HEART: NL S1/S2, regular, 2/6 systolic ejection murmur right and left upper sternal borders that radiates poorly ABDOMEN: BS+, soft, nontender, no mass, no bruits EXTREMITIES: No cyanosis, edema, or clubbing NEUROLOGIC: CN intact and symmetric to inspection. MUSCULOSKELETAL: Tone and strength symmetric. PSYCH: Alert. Oriented to person, place, and time. Objective Data Vital Signs Vital Signs: Vital Sign
[2021-04-04] VITALS (15 sets, daily range): BP systolic 72–178; BP diastolic 44–77; PULSE 53–74; RESP 16–18; TEMP 36.3–37.3; O2SAT 91–99; BMI 23.8
[2021-04-04] MEDS: hydrALAZINE HCL 20 MG/ML VIAL 10 MG IV PUSH (02:17)
[2021-04-04] MEDS: LEVOTHYROXINE SODIUM 88 MCG TABLET PO (05:59)
[2021-04-04 06:54] LABS: Hematocrit 42.1 % (37.0-47.0); Hemoglobin 14.7 g/dL (12.0-15.0); Mean Corpuscular HGB Conc 34.9 g/dl (32-36); Mean Corpuscular Hemoglobin 29.5 pg (26-34); Mean Corpuscular Volume 84.4 fl (80-100); Mean Platelet Volume 11.7 fl (7.4-10.4); Platelet Count Result 148 k/mm3 (150-375); Red Blood Count 4.99 M/mm3 (4.2-5.4); Red Cell Distribution Width 12.2 % (11.5-14.5); White Blood Count 4.4 K/mm3 (4.5-10.0)
[2021-04-04 07:13] LABS: Alanine Aminotransferase 20 U/L (4-35); Albumin Level 3.3 g/dL (3.5-5.1); Alkaline Phosphatase 60 U/L (38-126); Anion Gap 10 mmol/L (8-16); Aspartate Amino Transferase 41 U/L (14-36); Bilirubin,Total 0.3 mg/dL (0.2-1.3); Blood Urea Nitrogen 9 mg/dL (7-17); CRP 5.3 mg/dL (<1.0); Carbon Dioxide 18 mmol/L (22-30); Chloride 105 mmol/L (98-107); Estimated CRCL calculation 40 ml/min; Estimated Glomerular Filt Rate > 60; Glucose 80 mg/dL (65-110); Lactate Dehydrogenase 751 U/L (313-618); Potassium 3.9 mmol/L (3.4-5.0); Sodium 133 mmol/L (137-145)
[2021-04-04 07:43] LABS: INR 1.1; Prothrombin Time 13.8 Seconds (11.1-14.7)
[2021-04-04] MEDS: METOPROLOL SUCCINATE EXT REL 25 MG TABCR PO (09:02)
--- NOTE | 2021-04-04 09:08 | WPDCDIQUERY2 ---
CDI Query Clarification Request - Diagnosed with COVID-19 pneumonia March 27. Febrile to 101 overnight.04/03 CXR worsened but sats 95% on R/A Continue to monitor for criteria to initiate dexamethasone, remdesivir, baricitinib has been documented -04/03 CXR impression: Multifocal lung disease, worsened form 03/27/21, consistent with Covid 19 pneumonia. -Covid 19 virus infection documented on problem list Please clarify if COVID 19 pneumonia is a current diagnosis, not a current diagnosis or unable to determine.
[2021-04-04 10:48] LABS: Glucose Point of Care 108 mg/dl (65-105)
--- NOTE | 2021-04-04 10:49 | ECG_ITS ---
Measurements Intervals [place] Rate: 71 P: 55 WV: 135 QRS: 35 QRSD: 74 T: 43 QT: 383 QTc: 418 Interpretive Statements SINUS RHYTHM BORDERLINE T WAVE ABNORMALITY- ANTERIOR LEADS BASELINE ARTIFACT- I, II, III, AVR, AVL, AVF, V1-V6 BORDERLINE ECG Electronically Signed On 04-04-2021 12:56:00 CHEMISTRY LECTURER by Fareed Christian D.O.
[2021-04-04 11:24] LABS: Alveolar/Arterial O2 Gradient 191.7 mmHg; Base Excess ABG -5.6 mEq/l (+/-2.0); Fractional Inspired Oxygen 44 %; HCO3 ABG 17.8 mEq/l (22.0-26.0); Oxygen Content ABG 20.9 %vol (16.0-22.0); Oxygen Saturation ABG 96.8 % (95.0-100.0); Oxyhemoglobin 95.6 % THb (90.0-100.0); PCO2 ABG 29.6 mmHg (35.0-45.0); PO2 ABG 88.3 mmHg (80.0-100.0); PO2 FiO2 Ratio Arterial Blood 2.01 %; Total Hemoglobin 15.5 g/dL (12.0-18.0); pH ABG 7.396 (7.350-7.450)
[2021-04-04 11:25] LABS: Device NASAL CANNULA; Modified Allen's Test Pass; Site Drawn RIGHT RADIAL
--- NOTE | 2021-04-04 12:04 | PM.IMPN ---
Progress Note: A&P Assessment and Plan (1) Need for rapid response team activation: Status: Acute Assessment and Plan: Patient found to be slumped in her chair and poorly responsive, therefore rapid response was called. Initial vitals with blood pressure 72/44, heart rate 58, and SpO2 91% on room air. She was placed on a non-rebreather at 15 L and put back in bed. Noted to have a loose stool sometime during this. Review of telemetry prior to the episode demonstrated episode of bradycardia at 48. Blood pressure did come up prior to any interventions. She was started on a 500 cc IV fluid bolus. EKG obtained which showed sinus rhythm with rate 71. ABG reviewed without hypoxemia. She did come to and was opening her eyes and attempting to respond. The nonrebreather was removed and she was placed on nasal cannula. Most recent vitals following episode are BP 134/53, HR 68, spO2 98% on 3 L, and T 98.6?. Episode seems most consistent with syncope, possibly vasovagal in origin. Continue with gentle maintenance fluids at 60 mL/hour. Continue to monitor vital signs closely. Fall precautions in place. Appreciate cardiology input regarding her current medication regimen. Discussed case via phone with Cardiology and with my supervising physician. (2) Syncope: Qualifiers: Syncope type: unspecified Qualified Code(s): R55 - Syncope and collapse Code(s): R55 - Syncope and collapse Status: Acute Assessment and Plan: Presented following syncopal episode at home on 04/01. Also with recent hospitalization related to syncope and orthostatic hypotension discharged on 03/30/21. Echo is c/w HOCM (LVOT obstruction with 16 mmHg rest gradient and mitral ELIEZER, as well as sigmoid LV) She wishes no aggressive interventions. Reiterates this to me today 04/04/21 However, HOCM increases her risk for exertion related hypotension and ventricular arrhythmia, and due to this she has been initiated on beta-sierra therapy. She has been started on metoprolol succinate which was increased to 25 mg daily yesterday. She may not be able to tolerate uptitration given her bradycardia. Endocrine, neurological, psychiatric, and metabolic etiologies are clinically unlikely Episode of syncope again today 04/04. Please see above for further details. (3) COVID-19 virus infection: Code(s): U07.1 - COVID-19 Status: Acute Assessment and Plan: Tested positive for COVID-19 on 03/27/2021. Chest x-ray findings consistent with COVID-19 pneumonia She has not required supplemental oxygen on either of her admissions Given her lack of oxygen requirements, she is not a candidate for dexamethasone, remdesivir, baracitinib at this time. She was placed on oxygen following her syncopal episode today, though did not have any desaturations and O2 has been discontinued She has had low-grade fevers up to 101. She remains afebrile today. Negative UA. Preliminary blood cultures negative to date. Supportive care to include bronchodilators, expectorants, antipyretics, and incentive spirometry Continue isolation precautions. (4) Orthostatic hypotension: Code(s): I95.1 - Orthostatic hypotension Status: Acute Assessment and Plan: Syncope felt to be related to orthostatic hypotension. Received IVF overnight 04/01-04/02 Lisinopril has been discontinued Continue metoprolol succinate MARELY hose Monitor orthostatic BP (5) Hx of thyroid cancer: Code(s): Z85.850 - Personal history of malignant neoplasm of thyroid Status: Acute Assessment and Plan: Now has iatrogenic hyperthyroidism Given her predisposition to cardiac arrhythmia, suppressive doses of levothyroxine are likely more detrimental than beneficial at this juncture Continue with levothyroxine 88 mcg daily (weight based dosing, initiated on 04/02/2021). Home dose 125 mcg discontinued. She will need replete TSH with reflex T4 in
--- NOTE | 2021-04-04 12:18 | PM.PNCARD ---
Progress Note: A&P Assessment and Plan (1) Orthostatic hypotension: Code(s): I95.1 - Orthostatic hypotension Status: Acute Assessment and Plan: Apparently has had issues with orthostasis for several months. After review of blood pressure measurements I see one series of orthostatic BP readings with standing BP 80/50. She is otherwise generally hypertensive. (2) Syncope: Qualifiers: Syncope type: unspecified Qualified Code(s): R55 - Syncope and collapse Code(s): R55 - Syncope and collapse Status: Acute Assessment and Plan: Etiology unclear, possibly related to orthostatic hypotension. This morning's episode of pre-syncope/poor responsiveness seems most consistent with a vasovagal episode, according to report she did have a bowel movement sometime during this episode. Hemodynamic instability could be related to her HCM with mild LVOTO. Contunue metoprolol, titrate as tolerated, Avoid dehydration. Avoid vasodilators. (3) Hypertrophic cardiomyopathy: Code(s): I42.2 - Other hypertrophic cardiomyopathy Status: Acute Assessment and Plan: Evidence of HOCM on echocardiogram with LVOTO. Medications have been adjusted based on this finding. Hydralazine discontinued, lisinopril discontinued, and she has been started on a low dose of metoprolol. Subjective Date/time seen: 04/04/21 12:18 Cardiology follow up for syncope, orthostasis Date of service 04/04/21: Rapid response called on patient earlier today. OIL DISPATCHER found patient to be slumped in her chair and poorly responsive. Patient does not have any awareness of this event therefore cannot provide details on any symptoms she may have been experiencing. At the time of my encounter with her she denies having any complaints whatsoever Review of Systems Constitutional: Constitutional: Reports no additional constitutional complaints Eyes: Eyes: Reports no additional eye complaints ENT: Reports system reviewed and no additional complaints, except as documented Cardiovascular: Cardiovascular: Reports as per HPI Respiratory: Respiratory: Reports no additional respiratory complaints Gastrointestinal: Gastrointestinal: Reports no additional gastrointestinal complaints Musculoskeletal: Musculoskeletal: Reports arthralgias Integumentary/Breasts: Skin/Breast: Reports system reviewed and no additional complaints, except as docu Neurologic: Reports system reviewed and no additional complaints, except as documented Psychiatric: Psychiatric: Reports no additional psychiatric complaints Hematologic/Lymphatic: Hematologic/Lymphatic: Reports no additional hematologic/lymphatic complaints Allergic/Immunologic: Allergic/Immunologic: Reports no additional allergic/immunologic complaints Exam Narrative: Elderly lady lying comfortably in bed asleep. Awakens easily. She is confused. Const: General: comfortable and no acute distress Orientation/consciousness: confusion HENMT: Head: normal to inspection Ears: hearing grossly abnormal bilaterally Eyes: General: appearance normal, both eyes and all related structures Pupils: Equal, round and reactive pupils present Neck: Neck: normal visual inspection, no lymphadenopathy and no JVD Resp: Effort & Inspection: normal respiratory effort Auscultation: clear to auscultation bilaterally Cardio: Rate: regular rate Rhythm: regular rhythm Heart sounds: no murmurs Peripheral pulses: Peripheral pulses 2+ throughout GI: GI Palp: Yes Soft to palpation Auscultation: normal bowel sounds Skin: General skin exam: normal color and no rashes or lesions noted Neuro: Cognition (Neuro): abnormal cognition Extrem: General: normal to inspection Psych: Appearance: grossly normal Mental Status: mental status grossly abnormal Objective Data Vital Signs Vital Signs: Vital Signs - 24 hr 04/03/21 13:01 04/03/21 14:00 04/03/21 16:00 Temperature 38.2 C H 37.3 C 37.3 C P
[2021-04-04 12:19] LABS: Anion Gap 14 mmol/L (8-16); Blood Urea Nitrogen 11 mg/dL (7-17); Calcium 8.2 mg/dL (8.4-10.2); Carbon Dioxide 15 mmol/L (22-30); Chloride 103 mmol/L (98-107); Estimated CRCL calculation 32 ml/min; Estimated Glomerular Filt Rate 60; Glucose 102 mg/dL (65-110); Potassium 4.6 mmol/L (3.4-5.0); Sodium 132 mmol/L (137-145)
--- NOTE | 2021-04-04 13:38 | PCNSR ---
On 04/04/21, the student, Jerri Patterson, provided care and completed [facility] documentation on this patient. I have reviewed the student's documentation and agree with the findings.
--- NOTE | 2021-04-04 15:01 | PM.EVENT ---
Event Note Event Note Event Note: Rapid response note. Patient found to be slumped in her chair and poorly responsive, therefore rapid response was called. Initial vitals with blood pressure 72/44, heart rate 58, and SpO2 91% on room air. She was placed on a non-rebreather at 15 L and put back in bed. Noted to have a loose stool sometime during this. Review of telemetry prior to the episode demonstrated episode of bradycardia at 48. Blood pressure did come up prior to any interventions. She was started on a 500 cc IV fluid bolus. EKG obtained which showed sinus rhythm with rate 71. ABG reviewed without hypoxemia. She did come to and was opening her eyes and attempting to respond. The nonrebreather was removed and she was placed on nasal cannula. Most recent vitals following episode are BP 134/53, HR 68, spO2 98% on 3 L, and T 98.6?. Episode seems most consistent with syncope, possibly vasovagal in origin. Continue with gentle maintenance fluids at 60 mL/hour. Continue to monitor vital signs closely. Fall precautions in place.
[2021-04-04] MEDS: guaiFENesin 12 HR 600 MG TABCR PO ×2 (17:27→22:17)
[2021-04-05] VITALS (10 sets, daily range): BP systolic 162–195; BP diastolic 54–94; PULSE 57–83; RESP 16–24; TEMP 36.3–37.4; O2SAT 92–95
[2021-04-05 06:45] LABS: Hematocrit 37.6 % (37.0-47.0); Hemoglobin 12.8 g/dL (12.0-15.0); Mean Corpuscular Hemoglobin 29.6 pg (26-34); Mean Platelet Volume 11.1 fl (7.4-10.4); Platelet Count Result 152 k/mm3 (150-375); Red Blood Count 4.32 M/mm3 (4.2-5.4); Red Cell Distribution Width 12.6 % (11.5-14.5); White Blood Count 3.8 K/mm3 (4.5-10.0)
[2021-04-05] MEDS: LEVOTHYROXINE SODIUM 88 MCG TABLET PO (06:46)
[2021-04-05 07:02] LABS: Anion Gap 10 mmol/L (8-16); Blood Urea Nitrogen 12 mg/dL (7-17); Calcium 7.7 mg/dL (8.4-10.2); Carbon Dioxide 19 mmol/L (22-30); Chloride 104 mmol/L (98-107); Estimated CRCL calculation 36 ml/min; Estimated Glomerular Filt Rate > 60; Glucose 80 mg/dL (65-110); Potassium 3.7 mmol/L (3.4-5.0); Sodium 133 mmol/L (137-145)
[2021-04-05] MEDS: METOPROLOL SUCCINATE EXT REL 25 MG TABCR PO (09:33)
--- NOTE | 2021-04-05 14:28 | PM.IMPN ---
Progress Note: A&P Assessment and Plan (1) Syncope: Qualifiers: Syncope type: unspecified Qualified Code(s): R55 - Syncope and collapse Code(s): R55 - Syncope and collapse Status: Acute Assessment and Plan: Presented following syncopal episode at home on 04/01. Also with recent hospitalization related to syncope and orthostatic hypotension discharged on 03/30/21. Echo is c/w HOCM (LVOT obstruction with 16 mmHg rest gradient and mitral ELIEZER, as well as sigmoid LV) She wishes no aggressive interventions. Reiterates this again 04/04/21 However, HOCM increases her risk for exertion related hypotension and ventricular arrhythmia, and due to this she has been initiated on beta-sierra therapy. She has been started on metoprolol succinate which was increased to 25 mg daily. She may not be able to tolerate uptitration given her bradycardia. Endocrine, neurological, psychiatric, and metabolic etiologies are clinically unlikely Episode of syncope again 04/04. Please see below for further details. Doing better today. No dizziness. Will lift bedrest precautions and order PT/OT. (2) Need for rapid response team activation: Status: Acute Assessment and Plan: 04/04/21 Patient found to be slumped in her chair and poorly responsive, therefore rapid response was called. Initial vitals with blood pressure 72/44, heart rate 58, and SpO2 91% on room air. She was placed on a non-rebreather at 15 L and put back in bed. Noted to have a loose stool sometime during this. Review of telemetry prior to the episode demonstrated episode of bradycardia at 48. Blood pressure did come up prior to any interventions. She was started on a 500 cc IV fluid bolus. EKG obtained which showed sinus rhythm with rate 71. ABG reviewed without hypoxemia. She did come to and was opening her eyes and attempting to respond. The nonrebreather was removed and she was placed on nasal cannula. Most recent vitals following episode are BP 134/53, HR 68, spO2 98% on 3 L, and T 98.6?. Episode seems most consistent with syncope, possibly vasovagal in origin. Fall precautions in place. Appreciate cardiology input regarding her current medication regimen. (3) COVID-19 virus infection: Code(s): U07.1 - COVID-19 Status: Acute Assessment and Plan: Tested positive for COVID-19 on 03/27/2021. Chest x-ray findings consistent with COVID-19 pneumonia She has not required supplemental oxygen on either of her admissions Given her lack of oxygen requirements, she is not a candidate for dexamethasone, remdesivir, baracitinib at this time. She was placed on oxygen following her syncopal episode, though did not have any desaturations and O2 has been discontinued She has had low-grade fevers up to 101. She remains afebrile today. Negative UA. Preliminary blood cultures negative to date. Supportive care to include bronchodilators, expectorants, antipyretics, and incentive spirometry Continue isolation precautions. (4) Orthostatic hypotension: Code(s): I95.1 - Orthostatic hypotension Status: Acute Assessment and Plan: Syncope felt to be related to orthostatic hypotension. Received IVF overnight 04/01-04/02 Lisinopril has been discontinued Continue metoprolol succinate MARELY hose Monitor orthostatic BP (5) Hx of thyroid cancer: Code(s): Z85.850 - Personal history of malignant neoplasm of thyroid Status: Acute Assessment and Plan: Now has iatrogenic hyperthyroidism Given her predisposition to cardiac arrhythmia, suppressive doses of levothyroxine are likely more detrimental than beneficial at this juncture Continue with levothyroxine 88 mcg daily (weight based dosing, initiated on 04/02/2021). Home dose 125 mcg discontinued. She will need replete TSH with reflex T4 in 5-6 weeks as an outpatient (6) Essential (primary) hypertension: Code(s): I10 - Essent
[2021-04-05] MEDS: guaiFENesin 12 HR 600 MG TABCR PO ×2 (14:45→22:00)
--- NOTE | 2021-04-05 15:08 | PM.PNCARD ---
Progress Note: A&P Assessment and Plan (1) Orthostatic hypotension: Code(s): I95.1 - Orthostatic hypotension Status: Acute Assessment and Plan: Apparently has had issues with orthostasis for several months. After review of blood pressure measurements I see one series of orthostatic BP readings with standing BP 80/50. She is otherwise generally hypertensive. In this situation would allow permissive hypertension to avoid orthostasis and/or syncope (2) Syncope: Qualifiers: Syncope type: unspecified Qualified Code(s): R55 - Syncope and collapse Code(s): R55 - Syncope and collapse Status: Acute Assessment and Plan: Etiology unclear, possibly related to orthostatic hypotension. Yesterday's episode of pre-syncope/poor responsiveness seems most consistent with a vasovagal episode, according to report she did have a bowel movement sometime during this episode. Hemodynamic instability could be related to her HCM with mild LVOTO. Contunue metoprolol, titrate as tolerated, Avoid dehydration. Avoid vasodilators. (3) Hypertrophic cardiomyopathy: Code(s): I42.2 - Other hypertrophic cardiomyopathy Status: Acute Assessment and Plan: Evidence of HOCM on echocardiogram with LVOTO. Medications have been adjusted based on this finding. Hydralazine discontinued, lisinopril discontinued, and she has been started on a low dose of metoprolol. Subjective Date/time seen: 04/05/21 15:08 cardiology follow-up for syncope Interval history: Date of service 04/05/2021: Patient tells me she feels much better today. She has not had any episodes of syncope or presyncope. She denies any chest pain, shortness of breath. Her COVID-19 test did come back positive. Review of Systems Constitutional: Constitutional: Reports no additional constitutional complaints Eyes: Eyes: Reports no additional eye complaints ENT: Reports system reviewed and no additional complaints, except as documented Cardiovascular: Cardiovascular: Reports as per HPI Respiratory: Respiratory: Reports no additional respiratory complaints Gastrointestinal: Gastrointestinal: Reports no additional gastrointestinal complaints Musculoskeletal: Musculoskeletal: Reports arthralgias Integumentary/Breasts: Skin/Breast: Reports system reviewed and no additional complaints, except as docu Neurologic: Reports system reviewed and no additional complaints, except as documented and Reports confusion Psychiatric: Psychiatric: Reports no additional psychiatric complaints and Reports confusion Hematologic/Lymphatic: Hematologic/Lymphatic: Reports no additional hematologic/lymphatic complaints Allergic/Immunologic: Allergic/Immunologic: Reports no additional allergic/immunologic complaints Exam Narrative: Elderly lady lying comfortably in bed and offers no complaints Const: General: comfortable, no acute distress and confusion Orientation/consciousness: confusion HENMT: Head: normal to inspection Ears: hearing grossly abnormal bilaterally Eyes: General: appearance normal, both eyes and all related structures Pupils: Equal, round and reactive pupils present Neck: Neck: normal visual inspection, no lymphadenopathy and no JVD Resp: Effort & Inspection: normal respiratory effort Auscultation: clear to auscultation bilaterally Cardio: Rate: regular rate Rhythm: regular rhythm Heart sounds: no murmurs Peripheral pulses: Peripheral pulses 2+ throughout GI: Auscultation: normal bowel sounds Skin: General skin exam: normal color and no rashes or lesions noted Neuro: General: confusion Cranial nerves: Yes Equal, round and reactive pupils present Cognition (Neuro): abnormal cognition Extrem: General: normal to inspection Psych: Appearance: grossly normal Mental Status: mental status grossly abnormal Objective Data Vital Signs Vital Signs: Vital Signs - 24 hr 04/04/21 16:00 04/04/21 18:00 04/04/21 20:00
[2021-04-06] VITALS (9 sets, daily range): BP systolic 102–196; BP diastolic 54–83; PULSE 60–81; RESP 16–18; TEMP 36.4–37.1; O2SAT 92–96
[2021-04-06] MEDS: LEVOTHYROXINE SODIUM 88 MCG TABLET PO (06:18)
[2021-04-06 06:28] LABS: Hematocrit 35.7 % (37.0-47.0); Hemoglobin 12.5 g/dL (12.0-15.0); Mean Corpuscular Volume 82.8 fl (80-100); Platelet Count Result 190 k/mm3 (150-375); Red Blood Count 4.31 M/mm3 (4.2-5.4); Red Cell Distribution Width 12.4 % (11.5-14.5); White Blood Count 3.9 K/mm3 (4.5-10.0)
[2021-04-06 06:40] LABS: Anion Gap 5 mmol/L (8-16); Blood Urea Nitrogen 8 mg/dL (7-17); Carbon Dioxide 22 mmol/L (22-30); Chloride 105 mmol/L (98-107); Estimated CRCL calculation 40 ml/min; Estimated Glomerular Filt Rate > 60; Glucose 79 mg/dL (65-110); Potassium 3.6 mmol/L (3.4-5.0); Sodium 132 mmol/L (137-145)
[2021-04-06] MEDS: METOPROLOL SUCCINATE EXT REL 25 MG TABCR PO (09:37)
[2021-04-06] MEDS: guaiFENesin 12 HR 600 MG TABCR PO (09:37)
--- NOTE | 2021-04-06 16:30 | PM.DS ---
DS: Admitting Diagnosis Discharge Date 04/06/21 Admitting Diagnosis Syncope DS: Discharge Diagnosis Discharge Diagnosis (1) Syncope: Qualifiers: Syncope type: unspecified Qualified Code(s): R55 - Syncope and collapse Code(s): R55 - Syncope and collapse Status: Acute Assessment and Plan: Presented following syncopal episode at home on 04/01. Also with recent hospitalization related to syncope and orthostatic hypotension discharged on 03/30/21. Echo is c/w HOCM (LVOT obstruction with 16 mmHg rest gradient and mitral ELIEZER, as well as sigmoid LV) She wishes no aggressive interventions. Reiterates this again 04/04/21 However, HOCM increases her risk for exertion related hypotension and ventricular arrhythmia, and due to this she has been initiated on beta-sierra therapy. She has been started on metoprolol succinate which was increased to 25 mg daily. She may not be able to tolerate uptitration given her bradycardia. Endocrine, neurological, psychiatric, and metabolic etiologies are clinically unlikely Episode of syncope again 04/04. Please see below for further details. Doing well today. Would like to be discharged. Did fantastic with PT/OT, was told no physical therapy or rehab was indicated. Pt to be discharged in stable condition to follow up with cardiology outpatient. Per cardiology will send her home on Metoprolol, discontinue Lisinopril. Also provided orthostatic hypotension precautions. (2) Need for rapid response team activation: Status: Acute Assessment and Plan: 04/04/21 Patient found to be slumped in her chair and poorly responsive, therefore rapid response was called. Initial vitals with blood pressure 72/44, heart rate 58, and SpO2 91% on room air. She was placed on a non-rebreather at 15 L and put back in bed. Noted to have a loose stool sometime during this. Review of telemetry prior to the episode demonstrated episode of bradycardia at 48. Blood pressure did come up prior to any interventions. She was started on a 500 cc IV fluid bolus. EKG obtained which showed sinus rhythm with rate 71. ABG reviewed without hypoxemia. She did come to and was opening her eyes and attempting to respond. The nonrebreather was removed and she was placed on nasal cannula. Most recent vitals following episode are BP 134/53, HR 68, spO2 98% on 3 L, and T 98.6?. Episode seems most consistent with syncope, possibly vasovagal in origin. See above. (3) Orthostatic hypotension: Code(s): I95.1 - Orthostatic hypotension Status: Acute Assessment and Plan: Syncope felt to be related to orthostatic hypotension. Received IVF overnight 04/01-04/02 Lisinopril has been discontinued Continue metoprolol succinate MARELY calvilloromeo See above (4) Pneumonia due to COVID-19 virus: Code(s): U07.1 - COVID-19; J12.82 - Pneumonia due to coronavirus disease 2018 Status: Acute Assessment and Plan: Tested positive for COVID-19 on 03/27/2021. Chest x-ray findings consistent with COVID-19 pneumonia She has not required supplemental oxygen on either of her admissions Given her lack of oxygen requirements, she is not a candidate for dexamethasone, remdesivir, baracitinib at this time. She was placed on oxygen following her syncopal episode, though did not have any desaturations and O2 has been discontinued She has had low-grade fevers up to 101. She remains afebrile today. Negative UA. Preliminary blood cultures negative to date. Supportive care to include bronchodilators, expectorants, antipyretics, and incentive spirometry Doing well at this time. No cough or sob. Stable for discharge. No additional intervention required at this time. She is off of isolation. (5) Hx of thyroid cancer: Code(s): Z85.850 - Personal history of malignant neoplasm of thyroid Status: Acute Assessment and Plan: Now has iatrogenic hyperthyroidism
== END 2021-04-06 18:25 | disposition home health service (06) | DRG 312 ==
LOC: ANHED 08:29 → ANH3MEDSUR 10:14
PROVIDERS: Emergency Medicine; Internal Medicine; Physician Assistant; Admitting Provider Family Medicine; Emergency Provider Emergency Medicine; PCP Family Medicine; Visit Provider Physician Assistant
DX: I95.1 Orthostatic hypotension (principal); U07.1 COVID-19; J12.82 Pneumonia due to coronavirus disease 2019; I42.2 Other hypertrophic cardiomyopathy; R01.1 Cardiac murmur, unspecified; D72.819 Decreased white blood cell count, unspecified; E83.51 Hypocalcemia; E78.2 Mixed hyperlipidemia; E03.2 Hypothyroidism due to medicaments and other exogenous substances; Z85.850 Personal history of malignant neoplasm of thyroid; Z86.73 Personal history of transient ischemic attack (TIA), and cerebral infarction without residual deficits; Z87.891 Personal history of nicotine dependence; Z79.899 Other long term (current) drug therapy
CPT/HCPCS: 36415; 36600; 71045; 71275; 80048; 80053; 80076; 81001; 82306; 82728; 82805; 82948; 83615; 83735; 83970; 84100; 84145; 84484; 85025; 85027; 85055; 85380; 85610; 86140; 87040; 93005; 96361; 96365; 96375; 97161; 97165; 99285; A9270; G0378; J0131; J0360; J7030; Q9967

== ENCOUNTER 2023-11-05 18:25 | Emergency (ER) | payer MEDICARE, SELFPAY ==
[2023-11-05] VITALS (13 sets, daily range): BP systolic 165–231; BP diastolic 55–108; PULSE 55–80; RESP 12–18; TEMP 36.6; O2SAT 95–98
--- NOTE | ~2023-11-05 | CT_ITS ---
EXAMINATION: CT cervical spine wo con DATE: 11/05/2023 19:33 INDICATION: neck pain s/p syncope TECHNIQUE: Computed tomography (CT) of the cervical spine was performed without intravenous contrast. Automated exposure control and iterative reconstruction technique were employed. The dose-length pro duct was 163.03 mGy-cm. COMPARISON: 07/14/2013; [facility] 04/01/2021. FINDINGS: Vertebral Body Alignment: Intact. Craniocervical and atlantoaxial alignment: Moderate degenerative change. Alignment intact. Osseous structures/fracture: No evidence of a lytic or blastic process in the visualized spine. No e vidence of acute fracture. Mild height loss at C5, T3, and T4, stable. Cervical soft tissues: The paraspinal soft tissues planes are maintained. Emphysematous changes in th e lungs. Degenerative changes: Multilevel degenerative disc disease and facet arthropathy. Severe bilateral ne ural foraminal narrowing at C5-6 secondary to degenerative changes. No severe central canal narrowing IMPRESSION: No acute fracture or traumatic malalignment in the cervical spine. Reviewed, dictated and finalized at location K.
--- NOTE | ~2023-11-05 | CT_ITS ---
EXAMINATION: CT brain wo con DATE: 11/05/2023 19:32 INDICATION: head injury/syncope . TECHNIQUE: Computed tomography (CT) of the head was performed without intravenous contrast. The mA wa s adjusted according to patient size. Iterative reconstruction technique was employed. The dose-lengt h product was 605.33 mGy-cm. COMPARISON: 03/27/2021. FINDINGS: No acute intracranial hemorrhage or extra-axial fluid collection. No hydrocephalus, mass, or herniation. No acute ischemic infarct. Unremarkable dural venous sinus attenuation. No acute osseous abnormality. The aerated spaces are clear. Moderate atrophy and chronic white matter change. Atherosclerotic intracranial calcification. Right l ens replacement. Old left thalamic lacunar infarcts. IMPRESSION: No acute intracranial process. Reviewed, dictated and finalized at location K.
--- NOTE | ~2023-11-05 | XR_ITS ---
EXAMINATION: XR chest 1V Exam Date/Time: 11/05/2023 19:32 CDT HISTORY: syncope Comparison: 04/03/2021. RESULT: Lines, tubes, and devices: None. Lungs and pleura: Emphysematous change, otherwise clear. Cardiomediastinal silhouette: Stable. Other: No acute osseous or upper abdominal finding. IMPRESSION: No acute cardiopulmonary process. Reviewed, dictated and finalized at location K.
--- NOTE | 2023-11-05 18:32 | ECG_ITS ---
Test Date: 2023-11-05 18:33:36 Measurements Intervals [place] Rate: 50 P: 14 [place]: 146 QRS: 25 QRSD: 85 T: 36 QT: 420 QTc: 385 Interpretive Statements SINUS BRADYCARDIA No previous ECG available for comparison Electronically Signed On 11-06-2023 12:01:39 CDT by Lupillo Krueger M.D.
[2023-11-05] MEDS: ONDANSETRON INJ 4 MG/2 ML VIAL (18:42)
--- NOTE | 2023-11-05 20:15 | PC.NURSE ---
Patient and family state they do not want a straight catheter on patient for urine specimen.
[2023-11-05 20:18] LABS: Basophils Percent Auto 0.4 % (0.2-1.2); Eosinophils Percent Auto 0.4 % (0-4.4); Hematocrit 39.9 % (37.0-47.0); Hemoglobin 13.7 g/dL (12.0-15.0); Immature Granulocyte Absolute 0.03 K/mm3 (0.00-0.031); Immature Granulocyte Percent A 0.3 % (0-0.5); Lymphocytes Absolute Auto 1.56 K/mm3 (0.9-3.2); Lymphocytes Percent Auto 15.2 % (18.3-44.2); Mean Corpuscular HGB Conc 34.3 g/dl (32-36); Mean Corpuscular Hemoglobin 29.7 pg (26-34); Mean Corpuscular Volume 86.6 fl (80-100); Mean Platelet Volume 10.9 fl (7.4-10.4); Monocytes Absolute Auto 0.6 K/mm3 (0.1-0.6); Neutrophils Percent Auto 77.7 % (45.5-73.1); Platelet Count Result 206 k/mm3 (150-375); Red Blood Count 4.61 M/mm3 (4.2-5.4); Red Cell Distribution Width 13.1 % (11.5-14.5); White Blood Count 10.3 K/mm3 (4.5-10.0)
[2023-11-05 20:32] LABS: Partial Thromboplastin Time 22.4 Seconds (22.3-36.8); Prothrombin Time 13.4 Seconds (11.1-14.7)
[2023-11-05 20:38] LABS: Alanine Aminotransferase 13 U/L (6-35); Albumin Level 3.9 g/dL (3.5-5.1); Alkaline Phosphatase 75 U/L (38-126); Anion Gap 6 mmol/L (4-12); Aspartate Amino Transferase 25 U/L (14-36); Bilirubin,Total 0.5 mg/dL (0.2-1.3); Blood Urea Nitrogen 15 mg/dL (7-17); Carbon Dioxide 24 mmol/L (22-30); Chloride 104 mmol/L (98-107); Estimated CRCL calculation 22 ml/min; Estimated Glomerular Filt Rate 43; Glucose 111 mg/dL (65-110); Magnesium 2.1 mg/dL (1.6-2.3); Potassium 4.4 mmol/L (3.4-5.0); Sodium 134 mmol/L (137-145)
[2023-11-05 20:50] LABS: Troponin I < 0.012 ng/mL (0.000-0.034)
[2023-11-05 21:03] LABS: Appearance Urine Clear (Clear); Bilirubin Urine Negative (Negative); Blood Urine Negative (Negative); Color Urine Yellow (Yellow); Glucose Urine UA Negative (Negative); Ketones Urine Trace mg/dL (Negative); Leukocyte Esterase Ur 2+ LEU/UL (Negative); Need Manual Microscopic Reviewed; Nitrate Urine Negative (Negative); Protein Urine Negative (Negative); RBC Urine 0-2 /hpf (0-2); Specific Grav Ur 1.016 (1.001-1.035); Squamous Epithelial Cell Urine None Seen /hpf (Few); Urobilinogen Urine 0.2 mg/dL (<2.0); WBC Urine 51-100 /hpf (0-3)
[2023-11-05 21:05] LABS: Bacteria Urine Trace /hpf
[2023-11-05 21:06] LABS: Add Urine Microscopic? YES
--- NOTE | 2023-11-05 22:42 | ED.GENADULT ---
HPI - General Adult General Chief complaint: Fall Stated complaint: GLF, +LOC, N/V, HYPERTENSIVE Time Seen by Provider: 11/05/23 19:08 History of Present Illness HPI narrative: patient 82-year-old female presents emergency department chief complaint of fall. Patient has history of orthostatic hypotension and reports that she had an episode where she was standing at the counter fell backwards struck her head patient reports that there was no loss of consciousness and reports that she had some nausea vomiting afterwards. The patient reports she has a headache but otherwise feels fine. Patient reports her nausea has improved at this time Related Data Home Medications Medication Instructions Recorded Confirmed mecobalamin (vitamin B12) PO 07/11/23 07/11/23 Allergies Allergy/AdvReac Type Severity Reaction Status Date / Time No Known Allergies Allergy Verified 10/06/22 13:08 Review of Systems Review of Systems: A 10 system review of systems was completed on the patient and is negative except for what is stated in the HPI. Nursing and ancillary documentation was reviewed. [facility] Past Medical History Medical History At moderate risk for fall B12 deficiency COVID-19 virus infection Encounter for immunization Essential (primary) hypertension History of back injury History of CVA (cerebrovascular accident) History of foot fracture History of kidney stones History of wrist fracture Hx of thyroid cancer Hypocalcemia Hypothyroidism Memory deficit Mixed hyperlipidemia Need for rapid response team activation Orthostatic hypotension Orthostatic hypotension Paroxysmal atrial fibrillation Pneumonia due to COVID-19 virus Screening, deficiency anemia, iron Suspected COVID-19 virus infection Syncope Syncope Urinary frequency UTI (urinary tract infection) Vitamin D deficiency Surgical History Surgical History H/O cataract extraction History of appendectomy History of thyroid surgery Family History Family History Father Family history of lung cancer Mother Family history of coronary artery disease Sibling Family history of coronary artery disease Family history of malignant neoplasm of breast in first degree relative Social History Social History Social History: the patient is and only had 1 child. The patient is a former smoker and quit smoking in 1989. She is currently staying with her daughter. 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 Her daughter is the durable [employer] senior devops engineer for healthcare. Code status full code Smoking packs per day: 1 Smoking cigarettes per day: 20.0 Years smoked: 26 Smoking pack-years: 26.00 Smoking status: Former smoker Second hand tobacco smoke exposure: No Alcohol intake: never Substance use: never Substance use type: does not use Lack of Transportation: No Lack of Food: Never True Current Housing: I Have Housing Concerned About Future Housing: No Difficulty Paying Gas/Electric Bills: No Difficulty Paying for Meds: No Currently Unemployed: No Education: Grade School Difficulty w/ Childcare or Family Care: No Living arrangements: with family Occupation/Education: retired Gender identity (if verbalized by the patient): Female Spiritual care concerns: No Agree to blood products: Yes Exam Narrative: GENERAL: Well-appearing, well-nourished, and in no acute distress. HEAD: Normocephalic, atraumatic. EYES: PERRLA and EOMI. ENT: Nares clear, no rhinorrhea or epistaxis. Mucous membranes moist. NECK: Supple. mild tenderness to palpation midline cervical spine CHEST: Clear to auscultation. No respiratory distress. HEART: Regular rat
== END 2023-11-05 23:10 | disposition home or self-care (01) ==
PROVIDERS: Emergency Provider Emergency Medicine; PCP Nurse Practitioner Family
DX: R55 Syncope and collapse (principal); N39.0 Urinary tract infection, site not specified; I10 Essential (primary) hypertension; Z86.73 Personal history of transient ischemic attack (TIA), and cerebral infarction without residual deficits; Z87.442 Personal history of urinary calculi; E03.9 Hypothyroidism, unspecified; I48.91 Unspecified atrial fibrillation; Z87.440 Personal history of urinary (tract) infections
CPT/HCPCS: 36415; 70450; 71045; 72125; 80053; 81001; 83605; 83735; 84484; 85025; 85610; 85730; 87086; 87088; 93005; 96374; 99284; J2405

== ENCOUNTER 2024-11-14 10:59 | Inpatient (IN) | payer MEDICARE, SELFPAY ==
[2024-11-14] VITALS (46 sets, daily range): BP systolic 111–210; BP diastolic 45–159; PULSE 55–82; RESP 13–58; TEMP 36.7–37.4; O2SAT 97–100; BMI 22.8
--- NOTE | ~2024-11-14 | XR_ITS ---
EXAMINATION: XR ankle LT 2V DATE: 11/15/2024 10:25 INDICATION: Status post ORIF of a left ankle fracture TECHNIQUE: Anteroposterior and lateral views of the left ankle were obtained. COMPARISON: 11/14/2024 FINDINGS: Interval reduction to near-anatomic alignment of the previous noted trimalleolar fracture of the left ankle. The medial malleolar fractures fixed with a pair of cannulated lag screws and the lateral mal leolar fractures fixed with and interfragmentary screw and lateral plate and screws. No fixation of t he posterior malleolus fracture which is obscured on the lateral projection by the lateral plate and screws. No new fractures identified. Normal alignment and joint spaces in the visualized portions of the left foot. Fiberglas splinting material projects about the left foot, ankle and visualized lower leg. IMPRESSION: 1. Near-anatomic alignment of a trimalleolar fracture at the left ankle post open reduction internal fixation. Reviewed, dictated and finalized at location A. IMPRESSION: 1. Near-anatomic alignment of a trimalleolar fracture at the left ankle post op en reduction internal fixation.
--- NOTE | ~2024-11-14 | CT_ITS ---
CLINICAL INDICATION: Leukocytosis without a source COMPARISON: 04/01/2021. TECHNIQUE: An enhanced CT of the abdomen and pelvis was performed utilizing multislice spiral [employer] ue reconstructed at 5 mm slice thickness. Coronal and sagittal reconstructions were performed. This CT examination was performed utilizing dose reduction techniques. DLP: 418 mGy-cm FINDINGS/OBSERVATIONS: Lung: Trace bibasilar atelectasis. The heart is borderline enlarged, without pericardial effusion. Mediastinum: No pathologically enlarged or morphologically suspicious lymph nodes are identified within the medias tinum, bilateral axilla, within the soft tissues of the anterior chest wall. Soft tissues of the chest: Unremarkable. Bones of the chest: No acute fracture. No lytic or blastic lesions. Liver: The liver enhances homogeneously and is not enlarged. Gallbladder and biliary system: The gallbladder is distended, but otherwise unremarkable. The common bile duct measures 6 mm, not enlarged for a patient of this age. Pancreas: The pancreas enhances homogeneously, without ductal dilatation. Spleen: Spleen enhances homogeneously and is not enlarged. Kidneys: The bilateral kidneys enhance symmetrically without hydronephrosis or renal calculi. Adrenal glands: Unremarkable. Gastrointestinal tract: Small hiatal hernia is present. Rectosigmoid diverticulosis without surrounding inflammatory change. Appendix: The appendix is not definitively visualized. However, no pericecal inflammatory change is identified suggest the presence of acute appendicitis. Vasculature: Densely calcified atherosclerotic disease without aneurysmal dilatation. Lymph nodes: Scattered nonpathologically enlarged lymph nodes within the root of the mesentery and deep in the pel vis. Pelvic structures: The bladder is minimally distended and otherwise unremarkable. The uterus is retroverted and antral flexed, and somewhat prominent in size for a patient of this age . Calcified subcentimeter mesenteric cyst within the deep pelvis. Body wall and musculoskeletal: Small bowel containing, nonobstructing umbilical hernia. Degenerative disease within the lower lumbar spine, with osteophyte formation, disc space age-appropr iate degenerative disease within the thoracic and lumbar spines. Posterior osteophytes at the level of T11 and T12 with mass effect on both the spinal canal and bilat eral neural foramen. IMPRESSION: No acute findings within the chest, abdomen or pelvis to account for patient's leukocytosis, as detai led above. Reviewed, dictated and finalized at location A. IMPRESSION: No acute findings within the chest, abdomen or pelvis to account for patient's leukocytosis, as detailed above.
--- NOTE | ~2024-11-14 | XR_ITS ---
EXAM/PROCEDURE: XR chest 1V portable - 11/14/2024 13:25 CDT HISTORY: 83 years old Female with syncope TECHNIQUE: Two view(s) of the chest. COMPARISON: None available. FINDINGS: LUNGS/ PLEURA: No focal consolidation. No appreciable pneumothorax or large pleural effusion. HEART/ MEDIASTINUM: Heart appears normal in size. Atherosclerotic calcification are seen. BONES: Degenerative changes. OTHER: Visualized upper abdomen is unremarkable. IMPRESSION: No acute process. Reviewed, dictated and finalized at location A. IMPRESSION: No acute process.
--- NOTE | ~2024-11-14 | XR_ITS ---
EXAMINATION: XR surgery orthopedic DATE: 11/15/2024 09:45 INDICATION: ORIF left ankle fracture TECHNIQUE: 4 fluoroscopic images of the ankle were obtained during procedure performed by Dr. Boyle . Radiologist was not present for the imaging or procedure. The amount of fluoroscopy time used durin g this procedure was 0.6 minutes. Total DAP was 0.0299 mGym^2. COMPARISON: None. FINDINGS: Images demonstrate initially reduction internal fixation of the lateral malleolar fracture with inter fragmentary screw and lateral plate and screws. Subsequently the medial malleolus fracture is fixed w ith a pair of cannulated lag screws. The posterior malleolar fracture remains without fixation and is obscured by the lateral plate and screws on the lateral projection. Alignment appears near-anatomic. No new fractures identified. IMPRESSION: 1. Fluoroscopy lasting open reduction internal fixation of a trimalleolar fracture of the left ankle as detailed above. See procedure note for further detail. Reviewed, dictated and finalized at location A. IMPRESSION: 1. Fluoroscopy lasting open reduction internal fixation of a trimalleolar fract ure of the left ankle as detailed above. See procedure note for further detail.
--- NOTE | ~2024-11-14 | XR_ITS ---
XR ankle LT min 3V Ordering provider: Juan Ibanez MD History: . post reduction . Comparison: November 14, 2024 FINDINGS: BONES: Bimalleolar fracture in the distal left tibia is noted with surrounding cast. JOINT SPACES: The ankle mortise is normal. SOFT TISSUES: Soft tissue swelling over the lateral malleolus. Calcaneal spur. Ossification of the insertion of the tendo Achilles. IMPRESSION: Bimalleolar fractures. Overlying cast is noted. Reviewed, dictated and finalized at location A.
--- NOTE | ~2024-11-14 | CT_ITS ---
EXAM: CT cervical spine wo con - 11/14/2024 13:10 CDT History: 83 years old Female with Fall COMPARISON: None available. PROCEDURE: CT of the cervical spine without contrast. Axial, sagittal and coronal reformatted plane s were evaluated. Automatic exposure control was used for this study. FINDINGS: No acute fracture or subluxation. Straightening of cervical lordosis, likely positional or may be rel ated to muscle spasm. Multilevel degenerative changes of the cervical spine include varying degrees o f disk space narrowing, endplate osteophytosis as well as facet and uncal arthropathy. Prevertebral s oft tissues are within normal limits. Visualized lung apices are clear. IMPRESSION: No evidence for cervical spine fracture or traumatic subluxation. Multilevel degenerative changes of the cervical spine. Reviewed, dictated and finalized at location A.
--- NOTE | ~2024-11-14 | CT_ITS ---
CT brain wo con Ordering provider: Juan Ibanez MD History: 83 years Female with . Syncope, HTN . Comparison: None. Technique: CT of the head without contrast. Radiation reduction technique utilized The dose-length pr oduct was 605.33 mGy-cm. FINDINGS: BRAIN PARENCHYMA AND CSF SPACES: Mild leukoaraiosis and diffuse cortical atrophy. Mild atheromatous d isease. Old lacunar infarct in the left thalamus. No midline shift, mass effect or hemorrhage. The b rain parenchyma and CSF spaces are otherwise normal. VISUALIZED PARANASAL SINUSES: Well aerated. MASTOIDS: Well aerated. BONES: The bones appear intact. SOFT TISSUES: Visualized nasopharynx is normal. Superficial soft tissues are normal. IMPRESSION: No acute intracranial findings. Reviewed, dictated and finalized at location A.
--- NOTE | ~2024-11-14 | XR_ITS ---
EXAM/ PROCEDURE: XR ankle LT min 3V - 11/14/2024 13:25 CDT HISTORY: 83 years old Female with Fall, Deformity/swelling COMPARISON: None available TECHNIQUE: Three view(s) FINDINGS/ IMPRESSION: Distal fibular fracture with lateral displacement of the distal fragment. Displaced fracture of the medial malleolus with medial displacement of the distal fragment. Surrounding soft tissue injury. Joint space narrowing, subchondral sclerosis, subchondral cyst formation and osteophyte formation, co mpatible with mild to moderate osteoarthritis. Reviewed, dictated and finalized at location A.
--- NOTE | 2024-11-14 11:11 | ECG_ITS ---
Test Date: 2024-11-14 11:13:31 Measurements Intervals [place] Rate: 59 P: 53 PA: 148 QRS: 48 QRSD: 78 T: -8 QT: 379 QTc: 378 Interpretive Statements SINUS BRADYCARDIA MINIMAL Q WAVES- INFERIOR LEADS ST-T WAVE ABNORMALITY IN INF/LAT LEADS- CONSIDER ISCHEMIA BASELINE ARTIFACT- AVR, AVL, AVF, V1-V2, V4-V6 ABNORMAL ECG Compared to ECG 11/05/2023 18:33:36 ST-T WAVE ABNORMALITY NOW PRESENT POSSIBLE ISCHEMIA NOW PRESENT Electronically Signed On 11-14-2024 11:30:41 CDT by Fareed Christian D.O.
--- NOTE | 2024-11-14 13:24 | ED_ITS ---
HPI - General Adult General Chief complaint: Syncope Stated complaint: syncope Time Seen by Provider: 11/14/24 11:13 History of Present Illness HPI narrative: This is an 83-year-old female presenting after syncopal event. The patient herself has dimensions not remember the events of what happened. Teresa Alan (freelance graphic designer / daughter) says that her mother was given herself a sponge bath in the bathroom when she felt dizzy. She then sat on the toilet. The daughter then heard a large thump from the bathroom and had to push the door as Sydney was blocking the door. She says she was unconscious for approximately 5 minutes. No tongue biting or loss of consciousness. The patient was fully clothed so she was not straining to have a bowel movement. This time the patient is denying any complaints such as fevers chills nausea vomiting diarrhea headache chest pain difficulty breathing abdominal pain or symptoms. Patient has been of her normal health over the last several days. Related Data Allergies Allergy/AdvReac Type Severity Reaction Status Date / Time No Known Allergies Allergy Verified 10/02/24 13:13 [facility] Past Medical History Medical History (Updated 11/14/24 @ 18:18 by Juan Ibanez MD) Scratch of right forearm Left knee pain Dementia Decreased vision Conjunctivitis At moderate risk for fall Memory deficit B12 deficiency Urinary frequency Vitamin D deficiency Pneumonia due to COVID-19 virus Need for rapid response team activation Hypocalcemia COVID-19 virus infection Syncope Orthostatic hypotension Suspected COVID-19 virus infection UTI (urinary tract infection) History of CVA (cerebrovascular accident) History of wrist fracture History of foot fracture History of back injury History of kidney stones Paroxysmal atrial fibrillation Orthostatic hypotension Syncope Encounter for immunization Screening, deficiency anemia, iron Hypothyroidism Essential (primary) hypertension Hx of thyroid cancer Mixed hyperlipidemia Surgical History Surgical History History of appendectomy H/O cataract extraction History of thyroid surgery Family History Family History Father Family history of lung cancer Mother Family history of coronary artery disease Sibling Family history of coronary artery disease Family history of malignant neoplasm of breast in first degree relative Social History Social History Social History: the patient is and only had 1 child. The patient is a former smoker and quit smoking in 1989. She is currently staying with her daughter. 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 Her daughter is the durable power apiarist for healthcare. Code status full code Smoking packs per day: 1 Smoking cigarettes per day: 20.0 Years smoked: 26 Smoking pack-years: 26.00 Smoking status: Former smoker Second hand tobacco smoke exposure: No Alcohol intake: never Substance use: never Substance use type: does not use Lack of Transportation: No Lack of Food: Never True Current Housing: I Have Housing Concerned About Future Housing: No Difficulty Paying Gas/Electric Bills: No Difficulty Paying for Meds: No Currently Unemployed: No Education: Grade School Difficulty w/ Childcare or Family Care: No Living arrangements: with family Occupation/Education: retired Gender identity (if verbalized by the patient): Female Spiritual care concerns: No Agree to blood products: Yes Exam Narrative: APPEARANCE: No apparent distress. Head: atraumatic. EYES: EOMI, NOSE: Atraumatic NECK: Trachea midline RESPIRATORY: No increased rate of breathing CTAB CARDIOVASCULAR: RRR, no peripheral edema ABDOMINAL: Non-distended MUSCULOSKELETAL: Head to toe trauma exam performed with no areas of pain or tenderness outside of the left ankle. Exam of the left ankle revealed a bruised and deformed left ankle. Tenderness along the posterior lateral malleoli, +2 pulses in the PT and DP distribution. Neurovascularly intact. NEURO: Alert. Moving 4/4 extremities SKIN:: Warm, dry. Normal color PSYCHIATRIC: Normal affect Course Vital Signs Vital signs: Vital Signs Temperature 98.0 F 11/14/24 11:11 Pulse Rate 59 L 11/14/24 11:11 Respiratory Rate 58 H 11/14/24 11:11 Blood Pressure 111/82 11/14/24 11:11 Pulse Oximetry 97 11/14/24 11:11 Temperature 98.0 F 11/14/24 11:11 Pulse Rate 63 11/14/24 11:13 Respiratory Rate 58 H 11/14/24 11:11 Blood Pressure 111/82 11/14/24 11:11 Pulse Oximetry 98 11/14/24 11:12 Oxygen Delivery Room Air 11/14/24 11:12 Medical Decision Making MDM Narrative Medical decision making narrative: -Course: A 83-year-old female presenting after syncopal event the bathroom. She has no complaints outside of left ankle pain and has a swollen left ankle. Blood pressure is elevated. She has not been taking her metoprolol yet and was given her home dose. Blood pressures remain elevated. She received 1 dose of IV hydralazine with improvement to 157/60. Broad workup to evaluate for syncope. X-ray of the left ankle showed a bi-mal fracture. Ankle was reduced and placed in a stirrup/posterior mold. Repeat x-ray showed improved alignment. Dr. Gutierrez cta consulted. Rest the patient's workup was significant for a white count of 15.8. Chest x- ray was clear. Urine was not indicative infection. Viral swabs are negative. No other clear source of infection on her history and physical. CT chest abdomen pelvis ordered to further evaluate sepsis of unknown etiology which was unremarkable. Blood cultures were obtained which are pending. Patient's initial troponin was undetectable. Second was 0.014. EKG showed T- wave inversions in 3 AVF and V5 V6. No reported chest pain. BNP 646. Patient has severe dementia and family will be unable to take care of her with her new mobility requirements. Patient will be admitted to to the hospital for further evaluation of her syncope, ankle fracture and possible placement. -DDX includes but is not limited to: Sepsis UTI dehydration pneumonia vasovagal syncope, cardiogenic syncope, orthostatic syncope -Co-morbidities complicating care: Severe dementia Vital Signs Vital Signs: Vital Signs Temperature 98.0 F 11/14/24 11:11 Pulse Rate 59 L 11/14/24 11:11 Respiratory Rate 58 H 11/14/24 11:11 Blood Pressure 111/82 11/14/24 11:11 Pulse Oximetry 97 11/14/24 11:11 Temperature 98.0 F 11/14/24 11:11 Pulse Rate 63 11/14/24 11:13 Respiratory Rate 58 H 11/14/24 11:11 Blood Pressure 111/82 11/14/24 11:11 Pulse Oximetry 98 11/14/24 11:12 Oxygen Delivery Room Air 11/14/24 11:12 Discharge Plan Discharge Clinical Impression: Syncope and collapse, Dementia, Ankle fracture, Leukocytosis Patient Disposition: Still a Patient Condition: Stable Patient Language: Romansh Prescriptions: No Action metoprolol succinate 25 mg tablet extended release 24 hr 25 mg PO DAILY Qty: 90 3RF levothyroxine 100 mcg tablet 100 mcg PO DAILY Qty: 90 3RF Follow-up/Referrals: Dimple Mcdonald NP [Primary Care Provider] -
[2024-11-14 14:08] LABS: Glucose Point of Care 121 mg/dl (65-105)
[2024-11-14 14:13] LABS: Basophils Absolute Auto 0.1 K/mm3 (0.0-0.1); Basophils Percent Auto 0.4 % (0.2-1.2); Eosinophils Percent Auto 0.1 % (0-4.4); Hematocrit 41.4 % (37.0-47.0); Hemoglobin 13.9 g/dL (12.0-15.0); Immature Granulocyte Absolute 0.07 K/mm3 (0.00-0.031); Immature Granulocyte Percent A 0.4 % (0-0.5); Lymphocytes Absolute Auto 1.44 K/mm3 (0.9-3.2); Lymphocytes Percent Auto 9.1 % (18.3-44.2); Mean Corpuscular HGB Conc 33.6 g/dl (32-36); Mean Corpuscular Hemoglobin 29.5 pg (26-34); Mean Corpuscular Volume 87.9 fl (80-100); Mean Platelet Volume 10.6 fl (7.4-10.4); Monocytes Absolute Auto 0.8 K/mm3 (0.1-0.6); Monocytes Percent Auto 5.3 % (2.6-8.5); Neutrophils Absolute Auto 13.4 K/mm3 (1.3-6.7); Neutrophils Percent Auto 84.7 % (45.5-73.1); Platelet Count Result 302 k/mm3 (150-375); Red Blood Count 4.71 M/mm3 (4.2-5.4); Red Cell Distribution Width 12.8 % (11.5-14.5); White Blood Count 15.8 K/mm3 (4.5-10.0)
[2024-11-14 14:22] LABS: Lactic Acid Reflex 1.2 mmol/L (0.7-2.0)
[2024-11-14 14:23] LABS: Prothrombin Time 13.5 Seconds (11.1-14.7)
[2024-11-14 14:25] LABS: Partial Thromboplastin Time 23.2 Seconds (22.3-36.8)
[2024-11-14] MEDS: METOPROLOL SUCCINATE EXT REL 25 MG TABCR PO (14:25)
[2024-11-14 14:33] LABS: Add Urine Microscopic? NO; Appearance Urine Clear (Clear); Bilirubin Urine Negative (Negative); Blood Urine Negative (Negative); Color Urine Yellow (Yellow); Glucose Urine UA Negative (Negative); Ketones Urine Negative (Negative); Leukocyte Esterase Ur Negative LEU/UL (Negative); Nitrate Urine Negative (Negative); Protein Urine Negative (Negative); Specific Grav Ur 1.013 (1.001-1.035); Urobilinogen Urine 0.2 mg/dL (<2.0); pH Urine 5.5 (5.0-9.0)
[2024-11-14 14:38] LABS: Alanine Aminotransferase 13 U/L (6-35); Albumin Level 3.8 g/dL (3.5-5.1); Alkaline Phosphatase 119 U/L (38-126); Anion Gap 9 mmol/L (4-12); Aspartate Amino Transferase 23 U/L (14-36); Bilirubin,Total 0.3 mg/dL (0.2-1.3); Blood Urea Nitrogen 12 mg/dL (7-17); Calcium 9.2 mg/dL (8.4-10.2); Carbon Dioxide 21 mmol/L (22-30); Chloride 106 mmol/L (98-107); Estimated Glomerular Filt Rate 44; Glucose 114 mg/dL (65-110); Lipase 224 U/L (23-300); Magnesium 2.2 mg/dL (1.6-2.3); Phosphorus 4.1 mg/dL (2.5-4.5); Potassium 4.6 mmol/L (3.4-5.0); Sodium 136 mmol/L (137-145); Total Protein 7.2 g/dL (6.3-8.2)
[2024-11-14 14:47] LABS: NT Pro B Type Natriuretic Pept 646 pg/mL (19.9-100)
[2024-11-14 14:49] LABS: Influenza A QL RT-PCR Negative (Negative); Influenza B QL RT-PCR Negative (Negative); RSV RNA, RT-PCR Negative (Negative); SARS-CoV-2 RNA PCR Negative (Negative)
[2024-11-14 14:50] LABS: Troponin I < 0.012 ng/mL (0.000-0.034)
[2024-11-14] MEDS: hydrALAZINE HCL 20 MG/ML VIAL 10 MG IV PUSH (16:13)
[2024-11-14 18:09] LABS: Troponin I 0.014 ng/mL (0.000-0.034)
--- NOTE | 2024-11-14 18:38 | P.HP_ITS ---
H&P: HPI History of Present Illness Date/Time: 11/14/24 18:38 Chief Complaint: syncope Narrative: 83-year-old female PMHx: Of dementia patient unable to recall events prior to admission, HPI performed using medical chart, bedside nursing. Per chart review patient was brought to the emergency room per auto design checker daughter Teresa Alan who reported that the patient was giving herself a sponge bath in the bathroom when she felt dizzy. She then sat on the toilet. The daughter then heard a large thump from the bathroom and had to push the door as Sydney was blocking the door. She says she was unconscious for approximately 5 minutes. No tongue biting was observed. During this intake pt is Lying in bed easily aroused, Ortho Glass to left ankle, she denies any pain, shortness a breath or abdominal pain at this time. ED Work-up reveals: BP 157/60, RR: 18, p: rate 72, SpO2 97% on RA, elevated WBC 15.8, serum creatinine 1.16, GFR 44, BNP 646, UA unremarkable, viral PCR all negative. Left ankle reveals bimalleolar fractures, overlying cast is noted. chest abdomen pelvis CT reveals no acute findings within the chest, abdomen or pelvis to account for patient's leukocytosis. Review of Systems Review of Systems: ROS unobtainable: Yes unobtainable due to mental status PMFSH Past Medical History Medical History (Updated 11/14/24 @ 18:18 by Juan Ibanez MD) Scratch of right forearm Left knee pain Dementia Decreased vision Conjunctivitis At moderate risk for fall Memory deficit B12 deficiency Urinary frequency Vitamin D deficiency Pneumonia due to COVID-19 virus Need for rapid response team activation Hypocalcemia COVID-19 virus infection Syncope Orthostatic hypotension Suspected COVID-19 virus infection UTI (urinary tract infection) History of CVA (cerebrovascular accident) History of wrist fracture History of foot fracture History of back injury History of kidney stones Paroxysmal atrial fibrillation Orthostatic hypotension Syncope Encounter for immunization Screening, deficiency anemia, iron Hypothyroidism Essential (primary) hypertension Hx of thyroid cancer Mixed hyperlipidemia Surgical History Surgical History History of appendectomy H/O cataract extraction History of thyroid surgery Family History Family History Father Family history of lung cancer Mother Family history of coronary artery disease Sibling Family history of coronary artery disease Family history of malignant neoplasm of breast in first degree relative Social History Social History Social History: the patient is and only had 1 child. The patient is a former smoker and quit smoking in 1989. She is currently staying with her daughter. 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 Code status full code Smoking packs per day: 1 Smoking cigarettes per day: 20.0 Years smoked: 26 Smoking pack-years: 26.00 Smoking status: Former smoker Tobacco type: cigarettes Second hand tobacco smoke exposure: Yes Smoking end date: 05/21/79 Alcohol intake: never Substance use: never Substance use type: does not use Do You Feel Safe in your Home?: Yes Lack of Transportation: No Lack of Food: Never True Current Housing: I Have Housing Concerned About Future Housing: No Difficulty Paying Gas/Electric Bills: No Difficulty Paying for Meds: No Currently Unemployed: No Education: Grade School Difficulty w/ Childcare or Family Care: No Living arrangements: with family Occupation/Education: retired Gender identity (if verbalized by the patient): Female Spiritual care concerns: No Agree to blood products: Yes Meds Home Medications and Allergies Home Medications ?Medication ?Instructions ?Recorded ?Confirmed ?Type levothyroxine 100 mcg tablet 100 mcg PO DAILY #90 tabs 06/12/24 11/14/24 Rx metoprolol succinate 25 mg 25 mg PO DAILY #90 tabs 06/12/24 11/14/24 Rx tablet,extended release 24 hr Allergies Allergy/AdvReac Type Severity Reaction Status Date / Time No Known Allergies Allergy Verified 10/02/24 13:13 Vital Signs Vital Signs - 24 hr 11/14/24 11:09 11/14/24 11:11 11/14/24 11:12 Temperature 98.0 F Pulse Rate 60 59 L Respiratory Rate 18 58 H Blood Pressure 111/82 111/82 Pulse Oximetry 100 97 98 Oxygen Delivery Room Air 11/14/24 11:13 11/14/24 11:15 11/14/24 11:19 Temperature Pulse Rate 63 58 L 56 L Respiratory Rate 19 15 Blood Pressure 158/79 H Pulse Oximetry 100 100 Oxygen Delivery 11/14/24 11:31 11/14/24 11:45 11/14/24 12:02 Temperature Pulse Rate 56 L 57 L 55 L Respiratory Rate 22 H 17 18 Blood Pressure 210/65 H 181/112 H Pulse Oximetry 98 99 Oxygen Delivery 11/14/24 12:15 11/14/24 12:31 11/14/24 12:45 Temperature Pulse Rate 58 L 60 57 L Respiratory Rate 16 18 18 Blood Pressure 195/68 H Pulse Oximetry 99 Oxygen Delivery 11/14/24 13:01 11/14/24 13:15 11/14/24 13:45 Temperature Pulse Rate 56 L 61 56 L Respiratory Rate 22 H 14 25 H Blood Pressure 208/63 H Pulse Oximetry 100 Oxygen Delivery 11/14/24 14:00 11/14/24 14:13 11/14/24 14:13 Temperature Pulse Rate 61 62 62 Respiratory Rate 18 18 18 Blood Pressure 195/80 H 149/121 H Pulse Oximetry 100 100 99 Oxygen Delivery 11/14/24 14:15 11/14/24 14:16 11/14/24 14:25 Temperature Pulse Rate 63 62 62 Respiratory Rate 19 24 H Blood Pressure 195/83 H Pulse Oximetry 100 99 Oxygen Delivery 11/14/24 14:31 11/14/24 14:45 11/14/24 15:01 Temperature Pulse Rate 77 66 59 L Respiratory Rate 15 19 17 Blood Pressure 190/159 H 190/70 H Pulse Oximetry Oxygen Delivery 11/14/24 15:05 11/14/24 15:15 11/14/24 15:20 Temperature Pulse Rate 60 55 L 58 L Respiratory Rate 18 17 25 H Blood Pressure 204/69 H Pulse Oximetry Oxygen Delivery 11/14/24 15:24 11/14/24 15:42 11/14/24 15:45 Temperature Pulse Rate 56 L 60 Respiratory Rate 13 16 Blood Pressure 205/94 H 201/66 H Pulse Oximetry Oxygen Delivery 11/14/24 16:08 11/14/24 16:10 11/14/24 16:12 Temperature Pulse Rate 80 74 74 Respiratory Rate 21 H 14 14 Blood Pressure 149/112 H 191/62 H Pulse Oximetry 99 100 99 Oxygen Delivery 11/14/24 16:16 11/14/24 16:31 11/14/24 16:32 Temperature Pulse Rate 74 77 76 Respiratory Rate 15 16 20 Blood Pressure 138/111 H 136/50 L Pulse Oximetry 100 100 Oxygen Delivery 11/14/24 16:46 11/14/24 17:01 11/14/24 17:16 Temperature Pulse Rate 77 60 82 Respiratory Rate 20 18 19 Blood Pressure 156/51 H 136/45 L 119/61 Pulse Oximetry Oxygen Delivery H&P: Results Labs Labs: Short CBC 11/14/24 Range/Units 14:03 WBC 15.8 H (4.5-10.0) K/mm3 Hgb 13.9 (12.0-15.0) g/dL Hct 41.4 (37.0-47.0) % Plt Count 302 (150-375) k/mm3 BMP 11/14/24 14:03 Sodium 136 L Potassium 4.6 Chloride 106 Carbon Dioxide 21 L BUN 12 Creatinine 1.16 H Glucose 114 H Calcium 9.2 Cardiac Enzymes 11/14/24 11/14/24 Range/Units 14:03 17:31 Troponin I < 0.012 0.014 (0.000-0.034) ng/mL Liver Function 11/14/24 Range/Units 14:03 Total Bilirubin 0.3 (0.2-1.3) mg/dL AST 23 (14-36) U/L ALT 13 (6-35) U/L Alkaline Phosphatase 119 (38-126) U/L Albumin 3.8 (3.5-5.1) g/dL Urine 11/14/24 Range/Units 14:12 Urine Color Yellow (Yellow) Urine Appearance Clear (Clear) Urine pH 5.5 (5.0-9.0) Ur Specific [place] 1.013 (1.001-1.035) Urine Protein Negative (Negative) mg/dL Urine Glucose (UA) Negative (Negative) mg/dL Assessment and Plan Assessment and plan (1) Syncope and collapse: Code(s): R55 - Syncope and collapse Status: Acute Assessment and Plan: -pt recent fall at home -continue Telemetry monitoring - initiate fall precautions -Monitor electrolytes (2) Dementia: Code(s): F03.90 - Unspecified dementia, unspecified severity, without behavioral disturbance, psychotic disturbance, mood disturbance, and anxiety Status: Acute Assessment and Plan: pt unable to recall events from home a/o 2, pleasant, without visual or auditory hallucinations or disturbances - continue safety fall risk precautions -Monitor for any agitation (3) Ankle fracture: Code(s): S82.899A - Other fracture of unspecified lower leg, initial encounter for closed fracture Status: Acute (4) At moderate risk for fall: Code(s): Z91.81 - History of falling Status: Acute Assessment and Plan: chronic history of multiple falls -Family with request for all TC placement for ongoing 24 hour care -consult care coordination -PT eval and treat (5) Essential (primary) hypertension: Code(s): I10 - Essential (primary) hypertension Status: Acute Assessment and Plan: controlled Elevated upon arrival, patient given hydralazine 10 mg IV push the ER continue home medication metoprolol 25 mg p.o. daily - monitor vital signs q.4 hours (6) Leukocytosis: Code(s): D72.829 - Elevated white blood cell count, unspecified Status: Acute Assessment and Plan: unknown source -Repeat CBC in the a.m. Plan Continue home medications: VTE Prophylaxis: enoxaparin subQ DIET: heart healthy Anticipated hospital stay: > 2 days Code Status: DNR Quality VTE Prophylaxis VTE prophylaxis: pharmacologic ordered Hospitalist [facility] Advance Care Plan I have confirmed that the patient's Advanced Care Plan is present, code status is documented, or surrogate decision maker is listed in patient medical record.: Yes Medication Reconciliation I have utilized all available resources to obtain, update and review the patients current medications (includes all prescriptions, OTC, herbals, cannabis, and nutritional supplements).: Yes
--- NOTE | 2024-11-14 20:51 | ADMGEN ---
This patient, Sydney Arisa, was admitted to [facility]- at 2015. Patient/family oriented to hospital policies and general routines including ID bracelet, bed and alarms, visiting hours, pain management, procedures, bathroom and other care routines, personal items, smoking policy, room service/diet, and visiting hours. Information on how to activate the Rapid Response Team has been discussed. Patient/Family are encouraged to report perceived risks to care and to ask questions if they do not understand what they are told or what they should do.
[2024-11-15] VITALS (21 sets, daily range): BP systolic 148–187; BP diastolic 46–78; PULSE 59–94; RESP 13–20; TEMP 36.6–37.5; O2SAT 91–100
[2024-11-15 06:01] LABS: Basophils Absolute Auto 0.1 K/mm3 (0.0-0.1); Basophils Percent Auto 0.6 % (0.2-1.2); Eosinophils Percent Auto 0.2 % (0-4.4); Hematocrit 36.9 % (37.0-47.0); Hemoglobin 12.2 g/dL (12.0-15.0); Immature Granulocyte Absolute 0.03 K/mm3 (0.00-0.031); Immature Granulocyte Percent A 0.3 % (0-0.5); Lymphocytes Absolute Auto 2.24 K/mm3 (0.9-3.2); Mean Corpuscular HGB Conc 33.1 g/dl (32-36); Mean Corpuscular Hemoglobin 28.7 pg (26-34); Mean Corpuscular Volume 86.8 fl (80-100); Mean Platelet Volume 10.6 fl (7.4-10.4); Monocytes Absolute Auto 0.9 K/mm3 (0.1-0.6); Monocytes Percent Auto 10.3 % (2.6-8.5); Neutrophils Absolute Auto 5.7 K/mm3 (1.3-6.7); Neutrophils Percent Auto 63.6 % (45.5-73.1); Platelet Count Result 290 k/mm3 (150-375); Red Blood Count 4.25 M/mm3 (4.2-5.4)
[2024-11-15 06:12] LABS: Anion Gap 6 mmol/L (4-12); Blood Urea Nitrogen 13 mg/dL (7-17); Calcium 8.8 mg/dL (8.4-10.2); Carbon Dioxide 22 mmol/L (22-30); Chloride 106 mmol/L (98-107); Estimated Glomerular Filt Rate 43; Glucose 105 mg/dL (65-110); Potassium 4.1 mmol/L (3.4-5.0); Sodium 134 mmol/L (137-145)
[2024-11-15 06:53] LABS: Glucose Point of Care 114 mg/dl (65-105)
--- NOTE | 2024-11-15 07:33 | P.PNAN_ITS ---
Anes - Initial Pre Proc Eval Procedure: Operation Date: 11/15/24 08:00 Proposed Procedures p Open Reduction Internal Fixation Left Ankle - Gregory Boyle MD Date/Time: 11/15/24 07:33 Surgeon: Js Mariee MD Pre Op Diagnosis: Left Ankle Fracture Patient Data Age: 83 Gender: F Height: 1.47 m Weight: 49 kg Last Vital Signs Temp 37.2 C 11/15/24 06:00 Pulse 94 11/15/24 06:00 Resp 18 11/15/24 06:00 BP 150/54 H 11/15/24 06:00 Pulse Ox 97 11/15/24 06:00 O2 Del Method Room Air 11/15/24 00:47 Allergies Allergy/AdvReac Type Severity Reaction Status Date / Time No Known Allergies Allergy Verified 10/02/24 13:13 Home Medications ?Medication ?Instructions ?Recorded ?Confirmed ?Type levothyroxine 100 mcg tablet 100 mcg PO DAILY #90 tabs 06/12/24 11/14/24 Rx metoprolol succinate 25 mg 25 mg PO DAILY #90 tabs 06/12/24 11/14/24 Rx tablet,extended release 24 hr Laboratory Tests 11/14/24 11/14/24 11/14/24 14:02 14:03 14:12 WBC 15.8 H K/mm3 (4.5-10.0) RBC 4.71 M/mm3 (4.2-5.4) Hgb 13.9 g/dL (12.0-15.0) Hct 41.4 % (37.0-47.0) MCV 87.9 fl (80-100) MCH 29.5 pg (26-34) MCHC 33.6 g/dl (32-36) RDW 12.8 % (11.5-14.5) Plt Count 302 k/mm3 (150-375) MPV 10.6 H fl (7.4-10.4) Immature Gran % (Auto) 0.4 % (0-0.5) Neut % (Auto) 84.7 H % (45.5-73.1) Lymph % (Auto) 9.1 L % (18.3-44.2) [place] % (Auto) 5.3 % (2.6-8.5) Eos % (Auto) 0.1 % (0-4.4) Baso % (Auto) 0.4 % (0.2-1.2) Lymph # (Auto) 1.44 K/mm3 (0.9-3.2) [place] # (Auto) 0.8 H K/mm3 (0.1-0.6) Eos # (Auto) 0.0 K/mm3 (0-0.3) Baso # (Auto) 0.1 K/mm3 (0.0-0.1) Abs Immat Gran (auto) 0.07 H K/mm3 (0.00-0.031) Absolute Neuts (auto) 13.4 H K/mm3 (1.3-6.7) Absolute Nucleated RBC 0.000 K/mm3 (0.0-0.012) Nucleated RBC % 0.0 % (0.0-0.2) PT 13.5 Seconds (11.1-14.7) INR 1.0 APTT 23.2 Seconds (22.3-36.8) Sodium 136 L mmol/L (137-145) Potassium 4.6 mmol/L (3.4-5.0) Chloride 106 mmol/L (98-107) Carbon Dioxide 21 L mmol/L (22-30) Anion Gap 9 mmol/L (4-12) BUN 12 mg/dL (7-17) Creatinine 1.16 H mg/dL (0.7-1.0) Estim Creat Clear Calc Not Reportable Estimated GFR 44 L (59 - ) Glucose 114 H mg/dL (65-110) POC Capillary Glucose 121 H mg/dl (65-105) Lactic Acid 1.2 mmol/L (0.7-2.0) Calcium 9.2 mg/dL (8.4-10.2) Phosphorus 4.1 mg/dL (2.5-4.5) Magnesium 2.2 mg/dL (1.6-2.3) Total Bilirubin 0.3 mg/dL (0.2-1.3) AST 23 U/L (14-36) ALT 13 U/L (6-35) Alkaline Phosphatase 119 U/L (38-126) Troponin I < 0.012 ng/mL (0.000-0.034) NT-Pro-B Natriuret Pep 646 H pg/mL (19.9-100) Total Protein 7.2 g/dL (6.3-8.2) Albumin 3.8 g/dL (3.5-5.1) Lipase 224 U/L (23-300) Urine Color Yellow (Yellow) Urine Appearance Clear (Clear) Urine pH 5.5 (5.0-9.0) Ur Specific [place] 1.013 (1.001-1.035) Urine Protein Negative mg/dL (Negative) Urine Glucose (UA) Negative mg/dL (Negative) Urine Ketones Negative mg/dL (Negative) Ur Blood (Man) Negative (Negative) Urine Nitrate Negative (Negative) Urine Bilirubin Negative (Negative) Urine Urobilinogen 0.2 mg/dL (<2.0) Leukocyte Esterase Rfl Negative PETER/UL (Negative) Influenza A (RT-PCR) Negative (Negative) Influenza B (RT-PCR) Negative (Negative) RSV (RT-PCR) Negative (Negative) SARS-CoV-2 RNA (RT-PCR) Negative (Negative) 11/14/24 11/15/24 11/15/24 17:31 05:27 06:49 WBC 9.0 K/mm3 (4.5-10.0) RBC 4.25 M/mm3 (4.2-5.4) Hgb 12.2 g/dL (12.0-15.0) Hct 36.9 L % (37.0-47.0) MCV 86.8 fl (80-100) MCH 28.7 pg (26-34) MCHC 33.1 g/dl (32-36) RDW 13.0 % (11.5-14.5) Plt Count 290 k/mm3 (150-375) MPV 10.6 H fl (7.4-10.4) Immature Gran % (Auto) 0.3 % (0-0.5) Neut % (Auto) 63.6 % (45.5-73.1) Lymph % (Auto) 25.0 % (18.3-44.2) [place] % (Auto) 10.3 H % (2.6-8.5) Eos % (Auto) 0.2 % (0-4.4) Baso % (Auto) 0.6 % (0.2-1.2) Lymph # (Auto) 2.24 K/mm3 (0.9-3.2) [place] # (Auto) 0.9 H K/mm3 (0.1-0.6) Eos # (Auto) 0.0 K/mm3 (0-0.3) Baso # (Auto) 0.1 K/mm3 (0.0-0.1) Abs Immat Gran (auto) 0.03 K/mm3 (0.00-0.031) Absolute Neuts (auto) 5.7 K/mm3 (1.3-6.7) Absolute Nucleated RBC 0.000 K/mm3 (0.0-0.012) Nucleated RBC % 0.0 % (0.0-0.2) PT INR APTT Sodium 134 L mmol/L (137-145) Potassium 4.1 mmol/L (3.4-5.0) Chloride 106 mmol/L (98-107) Carbon Dioxide 22 mmol/L (22-30) Anion Gap 6 mmol/L (4-12) BUN 13 mg/dL (7-17) Creatinine 1.20 H mg/dL (0.7-1.0) Estim Creat Clear Calc Not Reportable Estimated GFR 43 L (59 - ) Glucose 105 mg/dL (65-110) POC Capillary Glucose 114 H mg/dl (65-105) Lactic Acid Calcium 8.8 mg/dL (8.4-10.2) Phosphorus Magnesium Total Bilirubin AST ALT Alkaline Phosphatase Troponin I 0.014 ng/mL (0.000-0.034) NT-Pro-B Natriuret Pep Total Protein Albumin Lipase Urine Color Urine Appearance Urine pH Ur Specific [place] Urine Protein Urine Glucose (UA) Urine Ketones Ur Blood (Man) Urine Nitrate Urine Bilirubin Urine Urobilinogen Leukocyte Esterase Rfl Influenza A (RT-PCR) Influenza B (RT-PCR) RSV (RT-PCR) SARS-CoV-2 RNA (RT-PCR) Patient hx anesthesia problems: none Family hx anesthesia problems: none Results Review: All pre-operative results and documents have been reviewed as part of the pre- operative evaluation. [facility]LY [facility], [facility] Past Medical History Medical History (Updated 11/15/24 @ 08:13 by Alan Thompson DO) CVA (cerebral vascular accident) Atrial fibrillation Scratch of right forearm Left knee pain Dementia Decreased vision Conjunctivitis At moderate risk for fall Memory deficit B12 deficiency Urinary frequency Vitamin D deficiency Pneumonia due to COVID-19 virus Need for rapid response team activation Hypocalcemia COVID-19 virus infection Syncope Orthostatic hypotension Suspected COVID-19 virus infection UTI (urinary tract infection) History of CVA (cerebrovascular accident) History of wrist fracture History of foot fracture History of back injury History of kidney stones Paroxysmal atrial fibrillation Orthostatic hypotension Syncope Encounter for immunization Screening, deficiency anemia, iron Hypothyroidism Essential (primary) hypertension Hx of thyroid cancer Mixed hyperlipidemia Surgical History Surgical History History of appendectomy H/O cataract extraction History of thyroid surgery Family History Family History Father Family history of lung cancer Mother Family history of coronary artery disease Sibling Family history of coronary artery disease Family history of malignant neoplasm of breast in first degree relative Social History Social History Social History: the patient is and only had 1 child. The patient is a former smoker and quit smoking in 1989. She is currently staying with her daughter. 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 Her daughter is the durable power deputy county attorney for healthcare. Code status full code Smoking packs per day: 1 Smoking cigarettes per day: 20.0 Years smoked: 26 Smoking pack-years: 26.00 Smoking status: Former smoker Tobacco type: cigarettes Second hand tobacco smoke exposure: Yes Smoking end date: 05/21/79 Alcohol intake: never Substance use: never Substance use type: does not use Do You Feel Safe in your Home?: Yes Lack of Transportation: No Lack of Food: Never True Current Housing: I Have Housing Concerned About Future Housing: No Difficulty Paying Gas/Electric Bills: No Difficulty Paying for Meds: No Currently Unemployed: No Education: Grade School Difficulty w/ Childcare or Family Care: No Living arrangements: with family Occupation/Education: retired Gender identity (if verbalized by the patient): Female Spiritual care concerns: No Agree to blood products: Yes Anes - Eval Final PreProcedure Day of Procedure 11/15/24 07:33 Patient weight: normal Heart: regular rate and rhythm Lungs: clear to auscultation Airway: Mallampati scale class II Neurological: alert and oriented Last oral intake: >/= 8 hours ASA classification: III Emergent: no Anesthetic plan: proceed Anesthesia type and monitoring: general LMA and standard monitoring Results Review: All pre-operative results and documents have been reviewed as part of the pre- operative evaluation. Informed Consent: The patient's anesthetic plan and its attendant risks and benefits were discussed with the patient/family/POA. Questions were solicited and answers provided to the satisfaction of the patient/family/POA.
--- NOTE | 2024-11-15 07:58 | PM.CNOR ---
Assessment and Plan Assessment and plan (1) Closed left ankle fracture: Code(s): S82.892A - Other fracture of left lower leg, initial encounter for closed fracture Status: Acute Plan 83 yr old female with Left Ankle Unstable Trimalleolar Fracture. - plan ORIF of Left Ankle Fracture - Discussed with patient and her grand Daughter Sveta over the phone - risks include but are not limited to infection, nerve injury, blood vessel injury, DVT, post Traumatic arthritis, hardware irritation requiring removal - they understand and are willing to proceed with surgery. History of Present Illness HPI Consult date: 11/15/24 Requesting physician: Ryan Tesfaye MD Chief complaint: Left Ankle Fracture Narrative: 83 yr old female with Left Ankle Trimalleolar Fracture after a fall yesterday at home attempting to shower in the bathtub. She lives in [place] with her daughter. She was seen in the [place] ED and reduced by ER Provider. Teresa Alan (medical accounting clerk / daughter) says that her mother was given herself a sponge bath in the bathroom when she felt dizzy. She then sat on the toilet. The daughter then heard a large thump from the bathroom and had to push the door as Sydney was blocking the door. [facility] Past Medical History Medical History (Updated 11/15/24 @ 08:10 by Gregory Boyle MD) Scratch of right forearm Left knee pain Dementia Decreased vision Conjunctivitis At moderate risk for fall Memory deficit B12 deficiency Urinary frequency Vitamin D deficiency Pneumonia due to COVID-19 virus Need for rapid response team activation Hypocalcemia COVID-19 virus infection Syncope Orthostatic hypotension Suspected COVID-19 virus infection UTI (urinary tract infection) History of CVA (cerebrovascular accident) History of wrist fracture History of foot fracture History of back injury History of kidney stones Paroxysmal atrial fibrillation Orthostatic hypotension Syncope Encounter for immunization Screening, deficiency anemia, iron Hypothyroidism Essential (primary) hypertension Hx of thyroid cancer Mixed hyperlipidemia Surgical History Surgical History History of appendectomy H/O cataract extraction History of thyroid surgery Family History Family History Father Family history of lung cancer Mother Family history of coronary artery disease Sibling Family history of coronary artery disease Family history of malignant neoplasm of breast in first degree relative Social History Social History Social History: the patient is and only had 1 child. The patient is a former smoker and quit smoking in 1989. She is currently staying with her daughter. 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 Her daughter is the durable power district attorney for healthcare. Code status full code Smoking packs per day: 1 Smoking cigarettes per day: 20.0 Years smoked: 26 Smoking pack-years: 26.00 Smoking status: Former smoker Tobacco type: cigarettes Second hand tobacco smoke exposure: Yes Smoking end date: 05/21/79 Alcohol intake: never Substance use: never Substance use type: does not use Do You Feel Safe in your Home?: Yes Lack of Transportation: No Lack of Food: Never True Current Housing: I Have Housing Concerned About Future Housing: No Difficulty Paying Gas/Electric Bills: No Difficulty Paying for Meds: No Currently Unemployed: No Education: Grade School Difficulty w/ Childcare or Family Care: No Living arrangements: with family Occupation/Education: retired Gender identity (if verbalized by the patient): Female Spiritual care concerns: No Agree to blood products: Yes Meds Home Medications and Allergies Home Medications ?Medication ?Instructions ?Recorded ?Confirmed ?Type levothyroxine 100 mcg tablet 100 mcg PO DAILY #90 tabs 06/12/24 11/14/24 Rx metoprolol succinate 25 mg 25 mg PO DAILY #90 tabs 06/12/24 11/14/24 Rx tablet,extended release 24 hr Allergies Allergy/AdvReac Type Severity Reaction Status Date / Time No Known Allergies Allergy Verified 10/02/24 13:13 Vital Signs Vital Signs - 24 hr 11/14/24 11:09 11/14/24 11:11 11/14/24 11:12 Temperature 36.7 C Pulse Rate 60 59 L Respiratory Rate 18 58 H Blood Pressure 111/82 111/82 Pulse Oximetry 100 97 98 Oxygen Delivery Room Air 11/14/24 11:13 11/14/24 11:15 11/14/24 11:19 Temperature Pulse Rate 63 58 L 56 L Respiratory Rate 19 15 Blood Pressure 158/79 H Pulse Oximetry 100 100 Oxygen Delivery 11/14/24 11:31 11/14/24 11:45 11/14/24 12:02 Temperature Pulse Rate 56 L 57 L 55 L Respiratory Rate 22 H 17 18 Blood Pressure 210/65 H 181/112 H Pulse Oximetry 98 99 Oxygen Delivery 11/14/24 12:15 11/14/24 12:31 11/14/24 12:45 Temperature Pulse Rate 58 L 60 57 L Respiratory Rate 16 18 18 Blood Pressure 195/68 H Pulse Oximetry 99 Oxygen Delivery 11/14/24 13:01 11/14/24 13:15 11/14/24 13:45 Temperature Pulse Rate 56 L 61 56 L Respiratory Rate 22 H 14 25 H Blood Pressure 208/63 H Pulse Oximetry 100 Oxygen Delivery 11/14/24 14:00 11/14/24 14:13 11/14/24 14:13 Temperature Pulse Rate 61 62 62 Respiratory Rate 18 18 18 Blood Pressure 195/80 H 149/121 H Pulse Oximetry 100 100 99 Oxygen Delivery 11/14/24 14:15 11/14/24 14:16 11/14/24 14:25 Temperature Pulse Rate 63 62 62 Respiratory Rate 19 24 H Blood Pressure 195/83 H Pulse Oximetry 100 99 Oxygen Delivery 11/14/24 14:31 11/14/24 14:45 11/14/24 15:01 Temperature Pulse Rate 77 66 59 L Respiratory Rate 15 19 17 Blood Pressure 190/159 H 190/70 H Pulse Oximetry Oxygen Delivery 11/14/24 15:05 11/14/24 15:15 11/14/24 15:20 Temperature Pulse Rate 60 55 L 58 L Respiratory Rate 18 17 25 H Blood Pressure 204/69 H Pulse Oximetry Oxygen Delivery 11/14/24 15:24 11/14/24 15:42 11/14/24 15:45 Temperature Pulse Rate 56 L 60 Respiratory Rate 13 16 Blood Pressure 205/94 H 201/66 H Pulse Oximetry Oxygen Delivery 11/14/24 16:08 11/14/24 16:10 11/14/24 16:12 Temperature Pulse Rate 80 74 74 Respiratory Rate 21 H 14 14 Blood Pressure 149/112 H 191/62 H Pulse Oximetry 99 100 99 Oxygen Delivery 11/14/24 16:16 11/14/24 16:31 11/14/24 16:32 Temperature Pulse Rate 74 77 76 Respiratory Rate 15 16 20 Blood Pressure 138/111 H 136/50 L Pulse Oximetry 100 100 Oxygen Delivery 11/14/24 16:46 11/14/24 17:01 11/14/24 17:16 Temperature Pulse Rate 77 60 82 Respiratory Rate 20 18 19 Blood Pressure 156/51 H 136/45 L 119/61 Pulse Oximetry Oxygen Delivery 11/14/24 17:31 11/14/24 17:46 11/14/24 18:01 Temperature Pulse Rate 74 66 72 Respiratory Rate 27 H 15 18 Blood Pressure 159/62 H 153/52 H 157/60 H Pulse Oximetry Oxygen Delivery 11/14/24 18:16 11/14/24 18:31 11/14/24 18:46 Temperature Pulse Rate 62 71 61 Respiratory Rate 15 17 16 Blood Pressure 158/57 H 167/63 H 148/53 H Pulse Oximetry Oxygen Delivery 11/14/24 19:24 11/14/24 22:45 11/15/24 00:00 Temperature 37.4 C 36.9 C Pulse Rate 78 63 61 Respiratory Rate 19 18 Blood Pressure 140/78 178/70 H Pulse Oximetry 97 97 Oxygen Delivery 11/15/24 00:47 11/15/24 04:00 11/15/24 06:00 Temperature 37.2 C Pulse Rate 59 L 94 Respiratory Rate 18 Blood Pressure 150/54 H Pulse Oximetry 97 Oxygen Delivery Room Air Exam Narrative: Left Lower Extremity in Short Leg Splint - good Cap Refill - no swelling tenderness or deformity of bilateral knees, Right Ankle, bilateral wrist, elbows and shoulders. - no hip pain with rotation of thighs Const: General: cooperative, comfortable, no acute distress, well developed and awake Nutritional Appearance: average body habitus Orientation/consciousness: oriented to person Results Labs 11/15/24 05:27 11/15/24 05:27 Labs: Abnormal lab results 11/14/24 11/14/24 11/15/24 Range/Units 14:02 14:03 05:27 WBC 15.8 H (4.5-10.0) K/mm3 Hct 36.9 L (37.0-47.0) % MPV 10.6 H 10.6 H (7.4-10.4) fl Neut % (Auto) 84.7 H (45.5-73.1) % Lymph % (Auto) 9.1 L (18.3-44.2) % [place] % (Auto) 10.3 H (2.6-8.5) % [place] # (Auto) 0.8 H 0.9 H (0.1-0.6) K/mm3 Abs Immat Gran (auto) 0.07 H (0.00-0.031) K/mm3 Absolute Neuts (auto) 13.4 H (1.3-6.7) K/mm3 Sodium 136 L 134 L (137-145) mmol/L Carbon Dioxide 21 L (22-30) mmol/L Creatinine 1.16 H 1.20 H (0.7-1.0) mg/dL Estimated GFR 44 L 43 L (59 - ) Glucose 114 H (65-110) mg/dL POC Capillary Glucose 121 H (65-105) mg/dl NT-Pro-B Natriuret Pep 646 H (19.9-100) pg/mL 11/15/24 Range/Units 06:49 WBC (4.5-10.0) K/mm3 Hct (37.0-47.0) % MPV (7.4-10.4) fl Neut % (Auto) (45.5-73.1) % Lymph % (Auto) (18.3-44.2) % [place] % (Auto) (2.6-8.5) % [place] # (Auto) (0.1-0.6) K/mm3 Abs Immat Gran (auto) (0.00-0.031) K/mm3 Absolute Neuts (auto) (1.3-6.7) K/mm3 Sodium (137-145) mmol/L Carbon Dioxide (22-30) mmol/L Creatinine (0.7-1.0) mg/dL Estimated GFR (59 - ) Glucose (65-110) mg/dL POC Capillary Glucose 114 H (65-105) mg/dl NT-Pro-B Natriuret Pep (19.9-100) pg/mL H & H 11/14/24 11/15/24 Range/Units 14:03 05:27 Hgb 13.9 12.2 (12.0-15.0) g/dL Hct 41.4 36.9 L (37.0-47.0) % Coagulation 11/14/24 Range/Units 14:03 INR 1.0 All other labs normal.
--- NOTE | 2024-11-15 08:00 | PC.NURSE ---
tech and typing secretary transporting pt to surgery. pt off unit
--- NOTE | 2024-11-15 08:11 | WPDHPUPDATE1 ---
History and Physical Update Update Date/Time: 11/15/24 08:11 History and Physical has been reviewed, including an updated exam of the patient. There are NO changes in the patient's condition. Risks, benefits, and alternatives have been discussed and questions answered. Patient agrees to proceed with procedure. - ORIF of Left Ankle 83 yr old female with Left Ankle Unstable Trimalleolar Fracture. - plan ORIF of Left Ankle Fracture - Discussed with patient and her grand Daughter Sveta over the phone - risks include but are not limited to infection, nerve injury, blood vessel injury, DVT, post Traumatic arthritis, hardware irritation requiring removal - they understand and are willing to proceed with surgery.
[2024-11-15] MEDS: ceFAZolin 2 GM/D5W 50 ML 2 GM/50 ML BAG IVPB ×2 (08:15→17:49)
[2024-11-15] MEDS: LIDO 1%/EPINEPHRINE 1:100,000 20 ML VIAL 30 ML INFILTRATE (08:47)
[2024-11-15] MEDS: ceFAZolin SODIUM 1 GM VIAL IRRIGATION (08:47)
[2024-11-15] MEDS: LACTATED RINGERS 1,000 ML 30 ML IV CONT (09:53)
--- NOTE | 2024-11-15 10:02 | PM.IMPN ---
Progress Note: A&P Assessment and Plan (1) Closed left ankle fracture: Code(s): S82.892A - Other fracture of left lower leg, initial encounter for closed fracture Status: Acute Assessment and Plan: Schedule surgery. (2) Essential (primary) hypertension: Code(s): I10 - Essential (primary) hypertension Status: Acute Assessment and Plan: Stable on current medication, continue current treatment (3) Hypothyroidism: Code(s): E03.9 - Hypothyroidism, unspecified Status: Chronic Assessment and Plan: Stable on current medication, continue current treatment Plan Code status DNR DVT prophylaxis Lovenox. Subjective Date/time seen: 11/15/24 10:02 Interval history: Hypertension, hypothyroidism, ankle fracture. Review of Systems Review of Systems: the history and physical examination. All systems reviewed & are unremarkable except as noted in HPI and below Objective Data Vital Signs Vital Signs: Vital Signs - 24 hr 11/14/24 11:09 11/14/24 11:11 11/14/24 11:12 Temperature 36.7 C Pulse Rate 60 59 L Respiratory Rate 18 58 H Blood Pressure 111/82 111/82 Pulse Oximetry 100 97 98 Oxygen Delivery Room Air 11/14/24 11:13 11/14/24 11:15 11/14/24 11:19 Temperature Pulse Rate 63 58 L 56 L Respiratory Rate 19 15 Blood Pressure 158/79 H Pulse Oximetry 100 100 Oxygen Delivery 11/14/24 11:31 11/14/24 11:45 11/14/24 12:02 Temperature Pulse Rate 56 L 57 L 55 L Respiratory Rate 22 H 17 18 Blood Pressure 210/65 H 181/112 H Pulse Oximetry 98 99 Oxygen Delivery 11/14/24 12:15 11/14/24 12:31 11/14/24 12:45 Temperature Pulse Rate 58 L 60 57 L Respiratory Rate 16 18 18 Blood Pressure 195/68 H Pulse Oximetry 99 Oxygen Delivery 11/14/24 13:01 11/14/24 13:15 11/14/24 13:45 Temperature Pulse Rate 56 L 61 56 L Respiratory Rate 22 H 14 25 H Blood Pressure 208/63 H Pulse Oximetry 100 Oxygen Delivery 11/14/24 14:00 11/14/24 14:13 11/14/24 14:13 Temperature Pulse Rate 61 62 62 Respiratory Rate 18 18 18 Blood Pressure 195/80 H 149/121 H Pulse Oximetry 100 100 99 Oxygen Delivery 11/14/24 14:15 11/14/24 14:16 11/14/24 14:25 Temperature Pulse Rate 63 62 62 Respiratory Rate 19 24 H Blood Pressure 195/83 H Pulse Oximetry 100 99 Oxygen Delivery 11/14/24 14:31 11/14/24 14:45 11/14/24 15:01 Temperature Pulse Rate 77 66 59 L Respiratory Rate 15 19 17 Blood Pressure 190/159 H 190/70 H Pulse Oximetry Oxygen Delivery 11/14/24 15:05 11/14/24 15:15 11/14/24 15:20 Temperature Pulse Rate 60 55 L 58 L Respiratory Rate 18 17 25 H Blood Pressure 204/69 H Pulse Oximetry Oxygen Delivery 11/14/24 15:24 11/14/24 15:42 11/14/24 15:45 Temperature Pulse Rate 56 L 60 Respiratory Rate 13 16 Blood Pressure 205/94 H 201/66 H Pulse Oximetry Oxygen Delivery 11/14/24 16:08 11/14/24 16:10 11/14/24 16:12 Temperature Pulse Rate 80 74 74 Respiratory Rate 21 H 14 14 Blood Pressure 149/112 H 191/62 H Pulse Oximetry 99 100 99 Oxygen Delivery 11/14/24 16:16 11/14/24 16:31 11/14/24 16:32 Temperature Pulse Rate 74 77 76 Respiratory Rate 15 16 20 Blood Pressure 138/111 H 136/50 L Pulse Oximetry 100 100 Oxygen Delivery 11/14/24 16:46 11/14/24 17:01 11/14/24 17:16 Temperature Pulse Rate 77 60 82 Respiratory Rate 20 18 19 Blood Pressure 156/51 H 136/45 L 119/61 Pulse Oximetry Oxygen Delivery 11/14/24 17:31 11/14/24 17:46 11/14/24 18:01 Temperature Pulse Rate 74 66 72 Respiratory Rate 27 H 15 18 Blood Pressure 159/62 H 153/52 H 157/60 H Pulse Oximetry Oxygen Delivery 11/14/24 18:16 11/14/24 18:31 11/14/24 18:46 Temperature Pulse Rate 62 71 61 Respiratory Rate 15 17 16 Blood Pressure 158/57 H 167/63 H 148/53 H Pulse Oximetry Oxygen Delivery 11/14/24 19:24 11/14/24 22:45 11/15/24 00:00 Temperature 37.4 C 36.9 C Pulse Rate 78 63 61 Respiratory Rate 19 18 Blood Pressure 140/78 178/70 H Pulse Oximetry 97 97 Oxygen Delivery 11/15/24 00:47 11/15/24 04:00 11/15/24 06:00 Temperature 37.2 C Pulse Rate 59 L 94 Respiratory Rate 18 Blood Pressure 150/54 H Pulse Oximetry 97 Oxygen Delivery Room Air 11/15/24 07:45 11/15/24 09:53 Temperature 36.7 C Pulse Rate 67 Respiratory Rate 16 Blood Pressure 148/73 H Pulse Oximetry 100 Oxygen Delivery Room Air Room Air Intake/Output Intake/Output: Intake & Output 11/12/24 11/13/24 11/14/24 11/15/24 23:59 23:59 23:59 23:59 Intake Total 50 Output Total 300 Balance -300 50 Meds/Results Medications: Active Medications Generic Name Dose Route Start Last Admin Trade Name Freq PRN Reason Stop Dose Admin Enoxaparin Sodium 30 mg 11/15/24 09:00 Enoxaparin 30 Mg/0.3 Ml Syringe SUB-Q DAILY [facility] Fentanyl Citrate 25 mcg 11/15/24 09:07 Fentanyl Citrate Inj (*Crx) 100 Mcg/2 Ml Vial IV PUSH Q2M PRN Pain Lactated Ringer's 1,000 mls @ 30 mls/hr 11/15/24 09:10 Lr - Lactated Ringers Iv IV CONT .Q24H [facility] Levothyroxine Sodium 100 mcg 11/15/24 06:30 Levothyroxine Sodium 100 Mcg Tablet PO DAILY@0630 [facility] Metoprolol Succinate 25 mg 11/15/24 09:00 Metoprolol Succinate Ext Rel 25 Mg Tabcr PO DAILY [facility] Ondansetron HCl 4 mg 11/15/24 09:07 Ondansetron Inj 4 Mg/2 Ml Vial IV PUSH ONCE PRN Nausea Radiology Results: ITS Impressions Chest X-Ray 11/14/24 13:43 IMPRESSION: No acute process. Head CT 11/14/24 13:44 IMPRESSION: No acute intracranial findings. Cervical Spine CT 11/14/24 13:52 IMPRESSION: No evidence for cervical spine fracture or traumatic subluxation. Multilevel degenerative changes of the cervical spine. Ankle X-Ray 11/14/24 14:43 IMPRESSION: Bimalleolar fractures. Overlying cast is noted. Chest/Abdomen/Pelvis CT 11/14/24 16:31 IMPRESSION: No acute findings within the chest, abdomen or pelvis to account for patient's leukocytosis, as detailed above. Labs Labs: Laboratory Results - last 24 hr 11/14/24 11/14/24 11/14/24 14:02 14:03 14:12 WBC 15.8 H RBC 4.71 Hgb 13.9 Hct 41.4 MCV 87.9 MCH 29.5 MCHC 33.6 RDW 12.8 Plt Count 302 MPV 10.6 H Immature Gran % (Auto) 0.4 Neut % (Auto) 84.7 H Lymph % (Auto) 9.1 L [place] % (Auto) 5.3 Eos % (Auto) 0.1 Baso % (Auto) 0.4 Lymph # (Auto) 1.44 [place] # (Auto) 0.8 H Eos # (Auto) 0.0 Baso # (Auto) 0.1 Abs Immat Gran (auto) 0.07 H Absolute Neuts (auto) 13.4 H Absolute Nucleated RBC 0.000 Nucleated RBC % 0.0 PT 13.5 INR 1.0 APTT 23.2 Sodium 136 L Potassium 4.6 Chloride 106 Carbon Dioxide 21 L Anion Gap 9 BUN 12 Creatinine 1.16 H Estim Creat Clear Calc Not Reportable Estimated GFR 44 L Glucose 114 H POC Capillary Glucose 121 H Lactic Acid 1.2 Calcium 9.2 Phosphorus 4.1 Magnesium 2.2 Total Bilirubin 0.3 AST 23 ALT 13 Alkaline Phosphatase 119 Troponin I < 0.012 NT-Pro-B Natriuret Pep 646 H Total Protein 7.2 Albumin 3.8 Lipase 224 Urine Color Yellow Urine Appearance Clear Urine pH 5.5 Ur Specific [place] 1.013 Urine Protein Negative Urine Glucose (UA) Negative Urine Ketones Negative Ur Blood (Man) Negative Urine Nitrate Negative Urine Bilirubin Negative Urine Urobilinogen 0.2 Leukocyte Esterase Rfl Negative Influenza A (RT-PCR) Negative Influenza B (RT-PCR) Negative RSV (RT-PCR) Negative SARS-CoV-2 RNA (RT-PCR) Negative 11/14/24 11/15/24 11/15/24 17:31 05:27 06:49 WBC 9.0 RBC 4.25 Hgb 12.2 Hct 36.9 L MCV 86.8 MCH 28.7 MCHC 33.1 RDW 13.0 Plt Count 290 MPV 10.6 H Immature Gran % (Auto) 0.3 Neut % (Auto) 63.6 Lymph % (Auto) 25.0 [place] % (Auto) 10.3 H Eos % (Auto) 0.2 Baso % (Auto) 0.6 Lymph # (Auto) 2.24 [place] # (Auto) 0.9 H Eos # (Auto) 0.0 Baso # (Auto) 0.1 Abs Immat Gran (auto) 0.03 Absolute Neuts (auto) 5.7 Absolute Nucleated RBC 0.000 Nucleated RBC % 0.0 PT INR APTT Sodium 134 L Potassium 4.1 Chloride 106 Carbon Dioxide 22 Anion Gap 6 BUN 13 Creatinine 1.20 H Estim Creat Clear Calc Not Reportable Estimated GFR 43 L Glucose 105 POC Capillary Glucose 114 H Lactic Acid Calcium 8.8 Phosphorus Magnesium Total Bilirubin AST ALT Alkaline Phosphatase Troponin I 0.014 NT-Pro-B Natriuret Pep Total Protein Albumin Lipase Urine Color Urine Appearance Urine pH Ur Specific [place] Urine Protein Urine Glucose (UA) Urine Ketones Ur Blood (Man) Urine Nitrate Urine Bilirubin Urine Urobilinogen Leukocyte Esterase Rfl Influenza A (RT-PCR) Influenza B (RT-PCR) RSV (RT-PCR) SARS-CoV-2 RNA (RT-PCR) Quality VTE Prophylaxis VTE prophylaxis: pharmacologic ordered
--- NOTE | 2024-11-15 10:04 | W.PM.PROC2 ---
Procedure Note - Detailed Date of Procedure 11/15/24 Pre-op Diagnosis Left Ankle Fracture Post-op Diagnosis Same Procedure Performed 1. Left Ankle Trimalleolar Fracture ORIF without posterior lip fixation 2. Intra operative fluoroscopy of Left Ankle 3. Left Ankle Short Leg Splint Application Surgeon Gregory Boyle MD Anesthesia General Indications Unstable Left Ankle Fracture Dislocation Findings Unstable Left Ankle Fracture Dislocation with No syndesmotic instability Description of Procedure After the patient was interviewed in the holding area the left lower extremity was marked my initials. I discussed the procedure with the patient as well as her granddaughter phone. The patient was then taken to the operating room placed in the supine position which time she underwent general anesthesia. Left lower extremity was prepped and draped in the standard sterile fashion. Proximal thigh tourniquet was used. Time-out was performed prior to the procedure in order to verify correct patient correct procedure correct site of surgery as well as confirm 2 g of Ancef were administered within 1 hour of the incision time. Esmarch exsanguination was used tourniquet was elevated to 250 mmHg. First turned my attention to the lateral aspect of the patient's ankle which time I created a inch incision dissected down identified the fracture site evacuated the fracture hematoma and then obtain reduction with 2 reduction clamps. Anatomic reduction was obtained and then I placed a lag screw from anterior to posterior. After this was done I placed a lateral plate and placed multiple screws distally and proximally with a combination of locking and nonlocking screws. Fluoroscopy was used to verify positioning of the plate as well as to verify reduction. After this was done I then turned my attention medially at which time I made an incision approximately 4 in over the medial malleolus dissection carried down I easily identified the fracture site. I then obtained reduction after evacuation of the fracture hematoma using a reduction clamp. I then placed 2 cannulated screws partially threaded through the fracture site and these measured at 40 mm in length. Again fluoroscopy was used to verify positioning of the screws as well as to verify fracture reduction. I then irrigated copiously with both incision sites I then stressed the ankle to assess for syndesmotic integrity and indeed the patient had no evidence of syndesmotic ligament injury but no widening of the joint space on stressing of the ankle. Fluoroscopy was used in order to do all parts of the procedure. I then closed the skin using a dermal layer with 2-0 Vicryl and then I closed the skin as well as place Steri-Strips on top to further reinforce the closure. A short-leg fiberglass splint was then placed with a posterior splint as well as with lateral splint and was well padded. The patient was then transferred to the recovery room stable condition. The patient will be nonweightbearing on this extremity for a period of 6 weeks. Implants Sarah Estimated Blood Loss 20 Tourniquet Time Total Tourniquet Time: 65 Urine Output 300 Drains No Packing No Pathology None sent Complications None Condition Stable Disposition PACU
--- NOTE | 2024-11-15 11:05 | PC.NURSE ---
pt returns to room from surgery.
[2024-11-15] MEDS: METOPROLOL SUCCINATE EXT REL 25 MG TABCR PO (11:06)
[2024-11-15] MEDS: LEVOTHYROXINE SODIUM 100 MCG TABLET PO (11:07)
[2024-11-15] MEDS: polyethylene glycoL 3350 17 GM POWD.PACK PO (11:11)
[2024-11-15 13:20] LABS: Glucose Point of Care 139 mg/dl (65-105)
[2024-11-15] MEDS: SENNA/DOCUSATE SODIUM TABLET 2 TAB PO (17:49)
[2024-11-15 18:08] LABS: Glucose Point of Care 143 mg/dl (65-105)
[2024-11-15] MEDS: SODIUM CHLORIDE 0.9% IV 1,000 ML 125 ML IV CONT (22:17)
[2024-11-16] VITALS (11 sets, daily range): BP systolic 147–159; BP diastolic 46–81; PULSE 58–93; RESP 14–18; TEMP 36.9–37.7; O2SAT 98–99
[2024-11-16] MEDS: ceFAZolin 2 GM/D5W 50 ML 2 GM/50 ML BAG IVPB ×2 (00:02→08:49)
[2024-11-16] MEDS: HYDROcodone/acetaminophen (*CRX) 5-325 MG TABLET 1 TAB PO (01:41)
[2024-11-16] MEDS: LEVOTHYROXINE SODIUM 100 MCG TABLET PO (05:36)
[2024-11-16 06:06] LABS: Basophils Absolute Auto 0.1 K/mm3 (0.0-0.1); Basophils Percent Auto 0.5 % (0.2-1.2); Eosinophils Percent Auto 0.1 % (0-4.4); Hemoglobin 11.2 g/dL (12.0-15.0); Immature Granulocyte Absolute 0.06 K/mm3 (0.00-0.031); Immature Granulocyte Percent A 0.5 % (0-0.5); Lymphocytes Absolute Auto 2.44 K/mm3 (0.9-3.2); Lymphocytes Percent Auto 22.3 % (18.3-44.2); Mean Corpuscular HGB Conc 32.9 g/dl (32-36); Mean Corpuscular Volume 88.1 fl (80-100); Mean Platelet Volume 10.8 fl (7.4-10.4); Monocytes Absolute Auto 1.3 K/mm3 (0.1-0.6); Monocytes Percent Auto 11.6 % (2.6-8.5); Neutrophils Absolute Auto 7.1 K/mm3 (1.3-6.7); Platelet Count Result 265 k/mm3 (150-375); Red Blood Count 3.86 M/mm3 (4.2-5.4); Red Cell Distribution Width 12.9 % (11.5-14.5); White Blood Count 10.9 K/mm3 (4.5-10.0)
[2024-11-16 06:19] LABS: Anion Gap 7 mmol/L (4-12); Blood Urea Nitrogen 14 mg/dL (7-17); Calcium 8.3 mg/dL (8.4-10.2); Carbon Dioxide 22 mmol/L (22-30); Chloride 104 mmol/L (98-107); Estimated Glomerular Filt Rate 42; Glucose 117 mg/dL (65-110); Potassium 4.1 mmol/L (3.4-5.0); Sodium 133 mmol/L (137-145)
[2024-11-16] MEDS: METOPROLOL SUCCINATE EXT REL 25 MG TABCR PO (08:51)
[2024-11-16] MEDS: ENOXAPARIN 30 MG/0.3 ML SYRINGE SUB-Q (08:51)
[2024-11-16] MEDS: SENNA/DOCUSATE SODIUM TABLET 2 TAB PO (08:51)
[2024-11-16] MEDS: polyethylene glycoL 3350 17 GM POWD.PACK PO (08:51)
--- NOTE | 2024-11-16 11:35 | P.PNIM_ITS ---
Progress Note: A&P Assessment and Plan (1) Closed left ankle fracture: Code(s): S82.892A - Other fracture of left lower leg, initial encounter for closed fracture Status: Acute Assessment and Plan: Status post surgery. Pain under control. Continue current treatment. (2) Essential (primary) hypertension: Code(s): I10 - Essential (primary) hypertension Status: Acute Assessment and Plan: Stable on current medication, continue current treatment (3) Hypothyroidism: Code(s): E03.9 - Hypothyroidism, unspecified Status: Chronic Assessment and Plan: Stable on current medication, continue current treatment Plan Code status DNR DVT prophylaxis Lovenox. Subjective Date/time seen: 11/16/24 11:35 Interval history: Hypertension, hypothyroidism, ankle fracture. Patient was seen during the morning rounds today. Patient pain is under control. No shortness of breath or chest pain. No abdominal pain, nausea, no vomiting. Review of Systems Review of Systems: the history and physical examination. All systems reviewed & are unremarkable except as noted in HPI and below ROS unobtainable: Yes unobtainable due to mental status Exam Narrative: APPEARANCE: No apparent distress. Head: atraumatic. EYES: EOMI, NOSE: Atraumatic NECK: Trachea midline RESPIRATORY: No increased rate of breathing CTAB CARDIOVASCULAR: RRR, no peripheral edema ABDOMINAL: Non-distended MUSCULOSKELETAL: Status post left ankle surgery. NEURO: Alert. Moving 4/4 extremities SKIN:: Warm, dry. Normal color PSYCHIATRIC: Normal affect Objective Data Vital Signs Vital Signs: Vital Signs - 24 hr 11/15/24 11:38 11/15/24 12:05 11/15/24 12:08 Temperature 36.6 C 36.6 C Pulse Rate 61 60 59 L Respiratory Rate 14 16 Blood Pressure 187/56 H 177/50 H Pulse Oximetry 100 98 Oxygen Delivery Fraction of Inspired Oxygen 11/15/24 13:08 11/15/24 16:04 11/15/24 18:00 Temperature 36.7 C 36.8 C Pulse Rate 62 62 64 Respiratory Rate 14 14 Blood Pressure 157/46 H 157/50 H Pulse Oximetry 98 98 Oxygen Delivery Fraction of Inspired Oxygen 11/15/24 19:43 11/15/24 19:59 11/15/24 20:00 Temperature 37.4 C Pulse Rate 73 67 64 Respiratory Rate 16 20 Blood Pressure 152/78 H Pulse Oximetry 95 91 Oxygen Delivery Room Air Fraction of Inspired Oxygen 21 11/15/24 23:43 11/16/24 00:00 11/16/24 03:43 Temperature 37.5 C 36.9 C Pulse Rate 78 68 65 Respiratory Rate 16 18 Blood Pressure 186/60 H 147/81 H Pulse Oximetry 98 99 Oxygen Delivery Fraction of Inspired Oxygen 11/16/24 04:00 11/16/24 07:43 11/16/24 08:43 Temperature 37.1 C Pulse Rate 69 67 Respiratory Rate 14 Blood Pressure 155/49 H Pulse Oximetry 98 Oxygen Delivery Room Air Fraction of Inspired Oxygen 11/16/24 08:51 Temperature Pulse Rate 93 Respiratory Rate Blood Pressure Pulse Oximetry Oxygen Delivery Fraction of Inspired Oxygen Intake/Output Intake/Output: Intake & Output 11/13/24 11/14/24 11/15/24 11/16/24 23:59 23:59 23:59 23:59 Intake Total 500 150 Output Total 367 001 3178 Balance -300 200 -850 Meds/Results Medications: Active Medications Generic Name Dose Route Start Last Admin Trade Name Freq PRN Reason Stop Dose Admin Hydrocodone Bitart/Acetaminophen 1 tab 11/15/24 09:58 11/16/24 01:41 Hydrocodone/Acetaminophen (*Crx) 5-325 Mg Tablet PO 1 tab Q3H PRN Administration Pain Rated 4-6 Hydrocodone Bitart/Acetaminophen 2 tab 11/15/24 09:58 Hydrocodone/Acetaminophen (*Crx) 7.5-325 Mg Tablet PO Q6H PRN Pain Rated 7-10 Enoxaparin Sodium 30 mg 11/15/24 09:00 11/16/24 08:51 Enoxaparin 30 Mg/0.3 Ml Syringe SUB-Q 30 mg DAILY [facility] Administration Fentanyl Citrate 25 mcg 11/15/24 09:07 Fentanyl Citrate Inj (*Crx) 100 Mcg/2 Ml Vial IV PUSH Q2M PRN Pain Sodium Chloride 1,000 mls @ 50 mls/hr 11/15/24 10:00 11/15/24 22:17 Normal Saline Iv IV CONT 125 mls/hr .Q20H [facility] Administration Levothyroxine Sodium 100 mcg 11/15/24 06:30 11/16/24 05:36 Levothyroxine Sodium 100 Mcg Tablet PO 100 mcg DAILY@0630 [facility] Administration Metoprolol Succinate 25 mg 11/15/24 09:00 11/16/24 08:51 Metoprolol Succinate Ext Rel 25 Mg Tabcr PO 25 mg DAILY [facility] Administration Ondansetron HCl 4 mg 11/15/24 09:07 Ondansetron Inj 4 Mg/2 Ml Vial IV PUSH ONCE PRN Nausea Ondansetron HCl 4 mg 11/15/24 09:58 Ondansetron Inj 4 Mg/2 Ml Vial IV PUSH Q4H PRN Nausea And Vomiting Polyethylene Glycol 17 gm 11/15/24 10:30 11/16/24 08:51 Polyethylene Glycol 3350 17 Gm Powd.Pack PO 17 gm QAM [facility] Administration Senna/Docusate Sodium 2 tab 11/15/24 17:00 11/16/24 08:51 Senna/Docusate Sodium Tablet PO 2 tab BID [facility] Administration Radiology Results: ITS Impressions Chest X-Ray 11/14/24 13:43 IMPRESSION: No acute process. Head CT 11/14/24 13:44 IMPRESSION: No acute intracranial findings. Cervical Spine CT 11/14/24 13:52 IMPRESSION: No evidence for cervical spine fracture or traumatic subluxation. Multilevel degenerative changes of the cervical spine. Chest/Abdomen/Pelvis CT 11/14/24 16:31 IMPRESSION: No acute findings within the chest, abdomen or pelvis to account for patient's leukocytosis, as detailed above. Ankle X-Ray 11/15/24 10:41 IMPRESSION: 1. Near-anatomic alignment of a trimalleolar fracture at the left ankle post open reduction internal fixation. Intraoperative X-Ray 11/15/24 13:05 IMPRESSION: 1. Fluoroscopy lasting open reduction internal fixation of a trimalleolar fracture of the left ankle as detailed above. See procedure note for further detail. Labs Labs: Laboratory Results - last 24 hr 11/15/24 11/15/24 11/16/24 13:15 18:01 05:25 WBC 10.9 H RBC 3.86 L Hgb 11.2 L Hct 34.0 L MCV 88.1 MCH 29.0 MCHC 32.9 RDW 12.9 Plt Count 265 MPV 10.8 H Immature Gran % (Auto) 0.5 Neut % (Auto) 65.0 Lymph % (Auto) 22.3 [place] % (Auto) 11.6 H Eos % (Auto) 0.1 Baso % (Auto) 0.5 Lymph # (Auto) 2.44 [place] # (Auto) 1.3 H Eos # (Auto) 0.0 Baso # (Auto) 0.1 Abs Immat Gran (auto) 0.06 H Absolute Neuts (auto) 7.1 H Absolute Nucleated RBC 0.000 Nucleated RBC % 0.0 Sodium 133 L Potassium 4.1 Chloride 104 Carbon Dioxide 22 Anion Gap 7 BUN 14 Creatinine 1.21 H Estim Creat Clear Calc Not Reportable Estimated GFR 42 L Glucose 117 H POC Capillary Glucose 139 H 143 H Calcium 8.3 L Quality VTE Prophylaxis VTE prophylaxis: pharmacologic ordered
[2024-11-16] MEDS: SODIUM CHLORIDE 0.9% IV 1,000 ML 50 ML IV CONT (12:46)
[2024-11-17] VITALS: PULSE 63
[2024-11-17] MEDS: HYDROcodone/acetaminophen (*CRX) 5-325 MG TABLET 1 TAB PO (02:42)
[2024-11-17 02:45] VITALS: BP 151/62; PULSE 73; RESP 18; TEMP 36.4; O2SAT 97
[2024-11-17 04:00] VITALS: PULSE 63
[2024-11-17] MEDS: LEVOTHYROXINE SODIUM 100 MCG TABLET PO (05:59)
[2024-11-17 06:00] VITALS: BP 136/47; PULSE 60; RESP 18; TEMP 37.1; O2SAT 96
[2024-11-17 06:25] LABS: Basophils Absolute Auto 0.1 K/mm3 (0.0-0.1); Eosinophils Absolute Auto 0.1 K/mm3 (0-0.3); Eosinophils Percent Auto 1.9 % (0-4.4); Hematocrit 29.7 % (37.0-47.0); Hemoglobin 9.7 g/dL (12.0-15.0); Immature Granulocyte Absolute 0.03 K/mm3 (0.00-0.031); Immature Granulocyte Percent A 0.4 % (0-0.5); Lymphocytes Absolute Auto 1.49 K/mm3 (0.9-3.2); Lymphocytes Percent Auto 20.6 % (18.3-44.2); Mean Corpuscular HGB Conc 32.7 g/dl (32-36); Mean Corpuscular Hemoglobin 29.2 pg (26-34); Mean Corpuscular Volume 89.5 fl (80-100); Monocytes Absolute Auto 0.8 K/mm3 (0.1-0.6); Neutrophils Absolute Auto 4.7 K/mm3 (1.3-6.7); Neutrophils Percent Auto 65.1 % (45.5-73.1); Platelet Count Result 212 k/mm3 (150-375); Red Blood Count 3.32 M/mm3 (4.2-5.4); Red Cell Distribution Width 12.9 % (11.5-14.5); White Blood Count 7.2 K/mm3 (4.5-10.0)
[2024-11-17 06:45] LABS: Anion Gap 3 mmol/L (4-12); Blood Urea Nitrogen 11 mg/dL (7-17); Calcium 8.4 mg/dL (8.4-10.2); Carbon Dioxide 25 mmol/L (22-30); Chloride 103 mmol/L (98-107); Estimated Glomerular Filt Rate 45; Glucose 95 mg/dL (65-110); Potassium 4.2 mmol/L (3.4-5.0); Sodium 131 mmol/L (137-145)
[2024-11-17 09:32] VITALS: PULSE 84
[2024-11-17] MEDS: METOPROLOL SUCCINATE EXT REL 25 MG TABCR PO (09:32)
[2024-11-17] MEDS: ENOXAPARIN 30 MG/0.3 ML SYRINGE SUB-Q (09:32)
[2024-11-17] MEDS: SENNA/DOCUSATE SODIUM TABLET 2 TAB PO (09:35)
--- NOTE | 2024-11-17 12:44 | PM.IMPN ---
Progress Note: A&P Assessment and Plan (1) Closed left ankle fracture: Code(s): S82.892A - Other fracture of left lower leg, initial encounter for closed fracture Status: Acute Assessment and Plan: Status post surgery. 1. Left Ankle Trimalleolar Fracture ORIF without posterior lip fixation 2. Intra operative fluoroscopy of Left Ankle 3. Left Ankle Short Leg Splint Application Pain under control. Continue current treatment. (2) Essential (primary) hypertension: Code(s): I10 - Essential (primary) hypertension Status: Acute Assessment and Plan: Stable on current medication, continue current treatment (3) Hypothyroidism: Code(s): E03.9 - Hypothyroidism, unspecified Status: Chronic Assessment and Plan: Stable on current medication, continue current treatment Plan postop anemia HB slightly down 9.7 today Provide ferrous sulfate 325 mg daily for 15 days Hyponatremia sodium 131 Sodium chloride 1 g b.i.d. p.o. for 10 days Code status DNR DVT prophylaxis Lovenox. Patient will be discharged to [facility] today Subjective Date/time seen: 11/17/24 12:44 Interval history: I saw examined the patient, patient feels pain tolerable, patient has good appetite, denies nausea vomiting diarrhea chest pain shortness breast Patient is afebrile, blood pressure stable, Labs reviewed, leukocytosis resolved Hemoglobin 9.7 Sodium 131, Exam Narrative: GENERAL: Pleasant, in no acute distress. Well-nourished. - EYES: EOMI. Anicteric. - HENT: Moist mucous membranes. - LUNGS: Clear to auscultation bilaterally, no wheezing, rhonchi, or rales. - CARDIOVASCULAR: Regular rate and rhythm. No murmur. No JVD. - ABDOMEN: Soft, non-tender and non-distended. No palpable masses. - EXTREMITIES: No edema. Peripheral pulses 2+. Non-tender. Left ankle is face in splint - NEUROLOGIC: No focal neurological deficits. CN II-XII grossly intact. - PSYCHIATRIC: Awake, Alert and oriented her name. Appropriate mood and affect. - SKIN: No rashes or lesions. Warm. - LYMPH: No cervical lymphadenopathy. Objective Data Vital Signs Vital Signs: Vital Signs - 24 hr 11/16/24 16:00 11/16/24 20:00 11/16/24 22:25 Temperature 99.9 F H Pulse Rate 59 L 68 68 Respiratory Rate 18 Blood Pressure 157/55 H Pulse Oximetry 98 11/17/24 00:00 11/17/24 02:45 11/17/24 04:00 Temperature 97.5 F L Pulse Rate 63 73 63 Respiratory Rate 18 Blood Pressure 151/62 H Pulse Oximetry 97 11/17/24 06:00 11/17/24 09:32 Temperature 98.8 F Pulse Rate 60 84 Respiratory Rate 18 Blood Pressure 136/47 L Pulse Oximetry 96 Intake/Output Intake/Output: Intake & Output 11/14/24 11/15/24 11/16/24 11/17/24 23:59 23:59 23:59 23:59 Intake Total 500 1700 680 Output Total 396 417 0540 800 Balance -300 200 700 -120 Meds/Results Medications: Active Medications Generic Name Dose Route Start Last Admin Trade Name Freq PRN Reason Stop Dose Admin Hydrocodone Bitart/Acetaminophen 1 tab 11/15/24 09:58 11/17/24 02:42 Hydrocodone/Acetaminophen (*Crx) 5-325 Mg Tablet PO 1 tab Q3H PRN Administration Pain Rated 4-6 Hydrocodone Bitart/Acetaminophen 2 tab 11/15/24 09:58 Hydrocodone/Acetaminophen (*Crx) 7.5-325 Mg Tablet PO Q6H PRN Pain Rated 7-10 Enoxaparin Sodium 30 mg 11/15/24 09:00 11/17/24 09:32 Enoxaparin 30 Mg/0.3 Ml Syringe SUB-Q 30 mg DAILY [facility] Administration Fentanyl Citrate 25 mcg 11/15/24 09:07 Fentanyl Citrate Inj (*Crx) 100 Mcg/2 Ml Vial IV PUSH Q2M PRN Pain Levothyroxine Sodium 100 mcg 11/15/24 06:30 11/17/24 05:59 Levothyroxine Sodium 100 Mcg Tablet PO 100 mcg DAILY@0630 [facility] Administration Metoprolol Succinate 25 mg 11/15/24 09:00 11/17/24 09:32 Metoprolol Succinate Ext Rel 25 Mg Tabcr PO 25 mg DAILY [facility] Administration Ondansetron HCl 4 mg 11/15/24 09:07 Ondansetron Inj 4 Mg/2 Ml Vial IV PUSH ONCE PRN Nausea Ondansetron HCl 4 mg 11/15/24 09:58 Ondansetron Inj 4 Mg/2 Ml Vial IV PUSH Q4H PRN Nausea And Vomiting Polyethylene Glycol 17 gm 11/15/24 10:30 11/17/24 09:35 Polyethylene Glycol 3350 17 Gm Powd.Pack PO Not Given QAM [facility] Senna/Docusate Sodium 2 tab 11/15/24 17:00 11/17/24 09:35 Senna/Docusate Sodium Tablet PO 2 tab BID [facility] Administration Radiology Results: ITS Impressions Chest X-Ray 11/14/24 13:43 IMPRESSION: No acute process. Head CT 11/14/24 13:44 IMPRESSION: No acute intracranial findings. Cervical Spine CT 11/14/24 13:52 IMPRESSION: No evidence for cervical spine fracture or traumatic subluxation. Multilevel degenerative changes of the cervical spine. Chest/Abdomen/Pelvis CT 11/14/24 16:31 IMPRESSION: No acute findings within the chest, abdomen or pelvis to account for patient's leukocytosis, as detailed above. Ankle X-Ray 11/15/24 10:41 IMPRESSION: 1. Near-anatomic alignment of a trimalleolar fracture at the left ankle post open reduction internal fixation. Intraoperative X-Ray 11/15/24 13:05 IMPRESSION: 1. Fluoroscopy lasting open reduction internal fixation of a trimalleolar fracture of the left ankle as detailed above. See procedure note for further detail. Labs Labs: Laboratory Results - last 24 hr 11/17/24 05:57 WBC 7.2 RBC 3.32 L Hgb 9.7 L Hct 29.7 L MCV 89.5 MCH 29.2 MCHC 32.7 RDW 12.9 Plt Count 212 MPV 11.0 H Immature Gran % (Auto) 0.4 Neut % (Auto) 65.1 Lymph % (Auto) 20.6 [place] % (Auto) 11.0 H Eos % (Auto) 1.9 Baso % (Auto) 1.0 Lymph # (Auto) 1.49 [place] # (Auto) 0.8 H Eos # (Auto) 0.1 Baso # (Auto) 0.1 Abs Immat Gran (auto) 0.03 Absolute Neuts (auto) 4.7 Absolute Nucleated RBC 0.000 Nucleated RBC % 0.0 Sodium 131 L Potassium 4.2 Chloride 103 Carbon Dioxide 25 Anion Gap 3 L BUN 11 Creatinine 1.14 H Estim Creat Clear Calc Not Reportable Estimated GFR 45 L Glucose 95 Calcium 8.4
--- NOTE | 2024-11-17 13:20 | PM.DS ---
DS: Admitting Diagnosis Discharge Date 11/17/24 Admitting Diagnosis Closed left ankle fracture: DS: Discharge Diagnosis Discharge Diagnosis (1) Closed left ankle fracture: Code(s): S82.892A - Other fracture of left lower leg, initial encounter for closed fracture Status: Acute DS: Summary Hospital Course Hospital Course: 83-year-old female PMHx: Of dementia patient unable to recall events prior to admission, HPI performed using medical chart, bedside nursing. Per chart review patient was brought to the emergency room per patient relations liaison daughter Teresa Alan who reported that the patient was giving herself a sponge bath in the bathroom when she felt dizzy. She then sat on the toilet. The daughter then heard a large thump from the bathroom and had to push the door as Sydney was blocking the door. She says she was unconscious for approximately 5 minutes. No tongue biting was observed. During this intake pt is Lying in bed easily aroused, Ortho Glass to left ankle, she denies any pain, shortness a breath or abdominal pain at this time. ED Work-up reveals: BP 157/60, RR: 18, p: rate 72, SpO2 97% on RA, elevated WBC 15.8, serum creatinine 1.16, GFR 44, BNP 646, UA unremarkable, viral PCR all negative. Left ankle reveals bimalleolar fractures, overlying cast is noted. chest abdomen pelvis CT reveals no acute findings within the chest, abdomen or pelvis to account for patient's leukocytosis. The following med issues have been addressed during hospitalization Closed left ankle fracture: Code(s): S82.892A - Other fracture of left lower leg, initial encounter for closed fracture Status: Acute Assessment and Plan: Status post surgery. 1. Left Ankle Trimalleolar Fracture ORIF without posterior lip fixation 2. Intra operative fluoroscopy of Left Ankle 3. Left Ankle Short Leg Splint Application Pain under control. Continue [place] p.o. p.r.n. (2) Essential (primary) hypertension: Code(s): I10 - Essential (primary) hypertension Status: Acute Assessment and Plan: Stable on current medication, continue current treatment (3) Hypothyroidism: Code(s): E03.9 - Hypothyroidism, unspecified Status: Chronic Assessment and Plan: Stable on current medication, continue current treatment postop anemia HB slightly down 9.7 today Provide ferrous sulfate 325 mg daily for 15 days Hyponatremia sodium 131 Sodium chloride 1 g b.i.d. p.o. for 10 days Patient will discharge to long-term today Before discharge, patient condition is stable Time Spent with Patient Time attestation: Total time spent providing and/or coordinating discharge services: DS: Data Data Completed and Pending Labs on day of discharge: Labs from last 24 hours 11/17/24 05:57 WBC 7.2 RBC 3.32 L Hgb 9.7 L Hct 29.7 L MCV 89.5 MCH 29.2 MCHC 32.7 RDW 12.9 Plt Count 212 MPV 11.0 H Immature Gran % (Auto) 0.4 Neut % (Auto) 65.1 Lymph % (Auto) 20.6 [place] % (Auto) 11.0 H Eos % (Auto) 1.9 Baso % (Auto) 1.0 Lymph # (Auto) 1.49 [place] # (Auto) 0.8 H Eos # (Auto) 0.1 Baso # (Auto) 0.1 Abs Immat Gran (auto) 0.03 Absolute Neuts (auto) 4.7 Absolute Nucleated RBC 0.000 Nucleated RBC % 0.0 Sodium 131 L Potassium 4.2 Chloride 103 Carbon Dioxide 25 Anion Gap 3 L BUN 11 Creatinine 1.14 H Estim Creat Clear Calc Not Reportable Estimated GFR 45 L Glucose 95 Calcium 8.4 Preliminary micro results at discharge 11/14/24 19:06 Blood Culture - Preliminary Blood 11/14/24 19:06 Blood Culture - Preliminary Blood Discharge Plan Discharge Attending physician on discharge: Mayank Friend Consulting providers: Gregory Boyle Discharging Clinician: Mayank Friend Anticipated Discharge Date/Time: 11/17/24 13:14 Patient Disposition: SNF Activity: follow weight bearing status Diet: regular Patient Language: Upper Sorbian Stand Alone Forms: General Discharge Information Follow-up/Referrals: Dimple Mcdonald NP [Primary Care Provider] - (See PCP in 1 week) Gregory Boyle MD [Physician] - (At scheduled appointment) Discharge Medications: New hydrocodone-acetaminophen 5-325 mg Tablet 1 tablet PO Q6H PRN (Reason: Pain Rated 4-6) Qty: 20 0RF sennosides-docusate sodium [Senokot-S] 8.6-50 mg Tablet 1 tab-cap PO BID Qty: 60 0RF ferrous sulfate 325 mg (65 mg iron) tablet 325 mg PO DAILY Qty: 15 0RF sodium chloride 1,000 mg tablet,soluble 1,000 mg PO BID Qty: 30 0RF Continued metoprolol succinate 25 mg tablet extended release 24 hr 25 mg PO DAILY Qty: 90 3RF levothyroxine 100 mcg tablet 100 mcg PO DAILY Qty: 90 3RF Date of admission: 11/14/24 18:30 Primary Care Provider: Dimple Mcdonald Admitting Provider: Js Mariee Attending physician on admission: Js Mariee Condition: Stable
== END 2024-11-17 14:33 | DRG 494 ==
LOC: ANHED 18:18 → ANH3MED 19:32
PROVIDERS: Nurse Practitioner; Orthopaedic Surgery; Admitting Provider Internal Medicine; Emergency Provider Emergency Medicine; PCP Nurse Practitioner Family; Visit Provider Hospitalist
PROC: 0QSH04Z Reposition Left Tibia with Internal Fixation Device, Open Approach (ICD-10-PCS; principal; 2024-11-15 08:00)
DX: S82.852A Displaced trimalleolar fracture of left lower leg, initial encounter for closed fracture (principal); I10 Essential (primary) hypertension; I48.0 Paroxysmal atrial fibrillation; D64.89 Other specified anemias; E53.8 Deficiency of other specified B group vitamins; E55.9 Vitamin D deficiency, unspecified; E03.9 Hypothyroidism, unspecified; E78.2 Mixed hyperlipidemia; R55 Syncope and collapse; F03.90 Unspecified dementia, unspecified severity, without behavioral disturbance, psychotic disturbance, mood disturbance, and anxiety; W19.XXXA Unspecified fall, initial encounter; Z20.822 Contact with and (suspected) exposure to COVID-19; Z91.81 History of falling; Z86.73 Personal history of transient ischemic attack (TIA), and cerebral infarction without residual deficits; Z85.850 Personal history of malignant neoplasm of thyroid; Z87.891 Personal history of nicotine dependence
CPT/HCPCS: 36415; 70450; 71045; 71260; 72125; 73600; 73610; 74177; 80048; 80053; 81003; 82948; 83605; 83690; 83735; 83880; 84100; 84484; 85025; 85610; 85730; 87040; 87637; 93005; 96374; 97110; 97161; 97165; 97530; 99199; 99285; A9270; C1713; J0360; J0690; J1650; J2003; J2004; J2704; J3010; J7030; J7120; Q9967